=== PATIENT | female | born 1985 | race Caucasian/White ===

== ENCOUNTER → 2021-08-29 11:03 | Outpatient (CLI) | payer MEDICAID, SELFPAY ==
--- NOTE | 2021-08-29 11:05 | MRI_ITS ---
STUDY: MR Spine Lumbar WO/W Contrast 08/29/2021 7:20 PM REASON FOR EXAM: Female, 35 years old. pain, injury, previous lumbar surgery regan hip pain swelling TECHNIQUE: Standardized fat and water weighted pulse sequences were obtained in the sagittal and axial planes. COMPARISON: None FINDINGS: T12-L1: Normal endplates. Normal disc height, hydration and morphology. Normal bilateral facet joints. Normal central canal and bilateral lateral recesses. Normal bilateral intervertebral neural foramina. No abnormal areas of enhancement. Normal lumbar lordosis. There is no substantial scoliosis. Normal conus medullaris that terminates at the L1 L1-2: Normal endplates. Normal disc height and morphology. Normal central canal and intervertebral neuroforamina. There is bilateral ligamentum flavum thickening. There is bilateral facet arthropathy. L2-3: Normal endplates. Normal disc height and morphology. Normal central canal and intervertebral neuroforamina. There is bilateral ligamentum flavum thickening. There is bilateral facet arthropathy. L3-4: Normal endplates. Normal disc height and morphology. Normal central canal and intervertebral neuroforamina. There is bilateral ligamentum flavum thickening. There is bilateral facet arthropathy. L4-5: Loss of intervertebral disc height. There is endplate spondylosis of the vertebral body. There is bilateral facet arthropathy. Moderate spinal stenosis. Narrowing of the lateral recess. There is bilateral ligamentum flavum thickening. L5-S1: Loss of intervertebral disc height. There is endplate spondylosis of the vertebral body. There is bilateral facet arthropathy. Mild right neural foraminal stenosis. No compression of exiting nerve root. There is bilateral ligamentum flavum thickening. Mild canal stenosis. Narrowing of the right lateral recess. Compression of the descending right S1 nerve root. Disc desiccation. Normal visualized sacral ala. Normal visualized paraspinous soft tissue structures. MRI/Spine Lumbar W/WO Contrast IMPRESSION: Multilevel degenerative changes, as described above. Most significant at L4-5 and L5-S1. Electronically Signed: Medardo Momin MD at 19:24 EDT , Service support ,
[2021-08-29 11:50] LABS: CREATININE FINGERSTICK 0.7 mg/dL (0.55-1.02); EGFR FINGERSTICK > 60.0000 mL/min (>60)
== END ==
PROVIDERS: PCP Family Medicine; Referring Provider Orthopaedic Surgery; Visit Provider Orthopaedic Surgery
DX: M51.37 Other intervertebral disc degeneration, lumbosacral region (principal); M16.11 Unilateral primary osteoarthritis, right hip; S34.109A Unspecified injury to unspecified level of lumbar spinal cord, initial encounter; X58.XXXA Exposure to other specified factors, initial encounter; Y93.9 Activity, unspecified; Y92.9 Unspecified place or not applicable; Y99.9 Unspecified external cause status
CPT/HCPCS: 72158; A9575

== ENCOUNTER 2022-02-19 07:04 | Day surgery (SDC) | payer MEDICAID, SELFPAY ==
--- NOTE | 2022-02-16 15:13 | HP.PCM_ITS ---
History and Physical Date of Admission: 02/19/22 Chief Complaint: Follow up post right lumbar transforaminal decreased pain by 85%. History of Present Illness: This is a 36 Y/O female who was seen and evaluated at our office today as a follow up. Pain: back and hip Quality: aching, sore, cramping, sharp/stabbing Region: lower back, right hip, right knee, right leg Severity: constant but varies in intensity Timin years Aggravated by: nothing specific Relieved by: stretching, swimming, resting makes it tolerable Pain score (out of 10): 610 Other info: Follow up post injection decreased pain by 85%. Reports injection did help. States it helped with the achy and soreness in lower back and the numbness in right leg that went to toes is gone. Reports some pain in right hip and buttocks. States Dr Miller said she had severe arthritis in right hip. States she would like to discuss Voltaren Gel, she continues to do ok with her medications without side effects, she denies any bowel ro bladder problems, she stated she was seen by her surgeon and surgery is not indicated. Review of Systems: Patient denies any recent fever, chills, headache, change in weight without trying, vision or hearing problems. No cp, sob, francisco, pnd, orthopnea, or peripheral edema.They note no lumps or swollen glands, no new rashes, changing moles, or change in bowel or bladder function. No melena or BRBPR. Mood has been frustrated Past Medical History: h/o osteoarthritis h/o degenerative disc disease h/o arthritis s/p back surgery (lumbar) Family History: ======== Structured Family History ======== heart issues, breast cancer Social History: [Tobacco: Never smoker Pipe Smoker: No Cigar Smoker: No Chewing Tobacco User: No Electronic Cigarette User: No] Living situation: single Occupation: [employer] Tobacco: denies EtOH: occasional Rec. drugs: denies Allergies: adhesive tape, nickel Medications: 1) Albuterol (Eqv-ProAir HFA) 90 mcg/inh inhalation aerosol, PRN 2) gabapentin 100 mg oral capsule, 1 PO QHS for 3 days, 1 PO BID for 3 days, 1 PO TID 3) naproxen sodium 220 mg oral capsule, Take 1 tablet by mouth 2 times a Day PRN Physical Examination: Wt: 319 lb Ht/Ln: 71 in BMI: 44.5 BP: 113/89 Pulse: 62 RR: 16 Temp: 97.5F Well nourished and well developed in no acute distress. Alert and oriented to person, place and time. Affect is normal and appropriate. Mucosa pink and moist. Respirations even and unlabored. Neck is supple without significant lymphadenopathy or thyromegaly. Abdomen soft & non-tender. No HSM or masses appreciated. Extremities show no cyanosis, clubbing, or edema. Gait is Antalgic. Lumbar paraspinal muscle tenderness. Lumbar ROM is limited due to pain much improved. Bilateral lumbar facet loading is positive. SLR is negative. ROM of the right hip is limited due to pain. Motor and sensory exam is unchanged. 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 OARRS was reviewed today. UDS was reviewed, pt state she had used a THC gummy before the appt. SOAPP score is 1 MRI of the lumbar spine was reviewed with the pt today and they appear to understand. Xray of the right hip was reviewed with the pt today and they appear to understand. There are no signs of diversion or addiction with the pt, there is also no signs of abuse or misuse, continues to do well with their medications without any side effects, we will continue monitoring the pt closely. Reviewed with the pt today our opioid agreement and they appear to understand. PEG was reviewed today. Life style modifications were also discussed today and the pt appears to understand. Weight loss was recommended today through diet and exercise Risks and benefits of the above meds were discussed with the pt and they appear to understand. The common side effects of the medications were discussed and all of their questions and concerns were answered and they appear to understand Discussed natural and expected course of this diagnosis and need to alert me if symptoms do not follow expected course, or if any worse. Pt is to continue with her PT and HEP. Pt has tried multiple modalities with no success, we will schedule the pt for a right hip intra-articular steroid injection under fluoroscopy We have discussed the risks, benefits as well as alternatives of the procedure and the patient appears to understand and would like to proceed with the above plan. The above plan was discussed today with the pt in details and they appear to understand and agrees to continue with the plan.
[2022-02-19] VITALS (7 sets, daily range): BP systolic 108–150; BP diastolic 50–87; PULSE 67–73; RESP 16; TEMP 36.7–36.8; O2SAT 95–97; BMI 44.3
[2022-02-19] MEDS: Lactated Ringers 1,000 ML 15 ML IV (07:20)
[2022-02-19 07:28] LABS: Internal QC Validated? YES +Cl - CLEAR BKGD; Pregnancy, Urine Negative Negative
--- NOTE | 2022-02-19 08:11 | RAD_ITS ---
STUDY: X-RAY - PELVIS AND RIGHT HIP REASON FOR EXAM: Female, 36 years old. Intraprocedural digital documentation images of hip injection. TECHNIQUE: A single frontal sac indentation views of the pelvis and hip. COMPARISON: Pelvis and hip images dated 07/28/2021. FINDINGS: A single frontal view shows a needle with the tip projected over the right femoral neck. RAD/Fluoro Guided Needle Placement IMPRESSION: Intraprocedural digital documentation image. Electronically Signed: Deshaun Hanna MD at 11:33 EDT ,
[2022-02-19] MEDS: MethylPREDNISolone Acetate 80 MG/ML Vial (08:22)
[2022-02-19] MEDS: Bupivacaine 0.25% 30 ML Vial (08:22)
[2022-02-19] MEDS: Lidocaine 1% (5 ml sdv) 5 ML Vial (08:23)
--- NOTE | 2022-02-19 12:51 | PCM.OPRPT ---
Report of Operation Date of Procedure: 02/19/22 Description of Surgical Findings:: PREOPERATIVE DIAGNOSIS: Osteoarthritis of the right hip POSTOPERATIVE DIAGNOSIS: Osteoarthritis of the right hip PROCEDURE PERFORMED: Right hip intraarticular steroid injection under fluoroscopy guidance. ANESTHESIA: MAC. BLOOD LOSS: Minimal. COMPLICATIONS: None. DESCRIPTION OF PROCEDURE: History and physical of today was reviewed. Risks and benefits of the procedure were explained. The patient understood and agreed to proceed. Informed consent was obtained. IV inserted per routine protocol. The patient was taken to the operating room and placed in the supine position. The right hip area was prepped and draped in a sterile fashion using iodine x3. Under fluoroscopy guidance on AP view, the right hip joint was visualized. The skin and subcutaneous tissue was anesthetized with approximately 3 mL of 1% lidocaine using a 25-gauge regular needle approximately 3 cm cephalad to the right greater trochanter. Under direct visualization with fluoroscopy on an AP view, using a 22-gauge 5-inch spinal needle, the needle was advanced via the skin using the lateral approach. The tip of the needle was maneuvered and directed towards the superiormost aspect of the hip joint. Once the tip of the needle was at the vicinity of the joint, after negative aspiration for blood and positive aspiration of synovial fluid, a total of 1 mL of contrast was injected to confirm correct placement of the needle as well as halo spread around the hip joint. After repeated negative aspiration for blood and confirmation on AP as well as oblique view, a total of 10 mL of preservative-free 0.25% Marcaine with 80 mg of Depo-Medrol was injected easily. The needle was then removed intact. The patient experienced no sign or symptoms of intrathecal or intravascular injection. The patient experienced no paresthesia. The procedure was completed without any apparent difficulty or any complications. The patient appeared to tolerate it well. ASSESSMENT AND PLAN: This is a 36-year-old female with osteoarthritis of the right hip status post right hip intra-articular steroid injection under fluoroscopic guidance, patient will continue current medications, patient will follow in approximately 2 weeks for reevaluation.
== END 2022-02-19 23:59 | disposition home or self-care (01) ==
LOC: SDC 07:05 → AC 07:06
PROVIDERS: Anesthesiology; PCP Family Medicine; Referring Provider Anesthesiology Pain Medicine; Visit Provider Anesthesiology Pain Medicine
PROC: 3E0U3GC Introduction of Other Therapeutic Substance into Joints, Percutaneous Approach (ICD-10-PCS; CPT 20610; principal; 2022-02-19 08:20)
DX: M16.11 Unilateral primary osteoarthritis, right hip (principal); M96.1 Postlaminectomy syndrome, not elsewhere classified; M47.27 Other spondylosis with radiculopathy, lumbosacral region; I10 Essential (primary) hypertension; Z79.1 Long term (current) use of non-steroidal anti-inflammatories (NSAID); Z79.899 Other long term (current) drug therapy
CPT/HCPCS: 20610; 01991; 76000; 77002; 81025; J7120

== ENCOUNTER 2022-05-15 10:32 | Outpatient (RCR) | payer MEDICAID, SELFPAY | END 2022-05-17 23:59 | LOC: NS 10:32 | PROVIDERS: PCP Family Medicine; Referring Provider Orthopaedic Surgery; Visit Provider Orthopaedic Surgery | DX: Z71.3 Dietary counseling and surveillance (principal); E66.01 Morbid (severe) obesity due to excess calories; Z68.42 Body mass index [BMI] 45.0-49.9, adult | CPT/HCPCS: 97802 ==

== ENCOUNTER 2022-05-30 14:34 | Outpatient (RCR) | payer MEDICAID, SELFPAY | END 2022-06-17 23:59 | LOC: NS 14:34 | PROVIDERS: PCP Family Medicine; Referring Provider Orthopaedic Surgery; Visit Provider Orthopaedic Surgery | DX: Z71.3 Dietary counseling and surveillance (principal); E66.01 Morbid (severe) obesity due to excess calories; Z68.42 Body mass index [BMI] 45.0-49.9, adult | CPT/HCPCS: 97803 ==

== ENCOUNTER 2022-06-12 11:30 | Outpatient (RCR) | payer MEDICAID, SELFPAY ==
--- NOTE | 2022-05-08 12:58 | HP.PTEVAL ---
Patient's Visit Information MIK AGGARWAL is a 36 year old F referred to Physical Therapy by Dr. Anthony Michelle DO with a diagnosis of Right Hip Pain. Date of Evaluation: 05/08/22 Physical Therapist: Jovanna Dunham DPT - Visit Plan Frequency: 2x /Week Duration: 4 Weeks Plan: Aquatic- focus on LE and core s/s. Needs right THR- needs to lose weight. - Subjective Patient reports that she needs a right total hip replacement- they want her to do aquatic therapy. Her hip has been bothering her roughly 4 years. She is waiting to schedule the hip replacement. Worst: 06/27 Agg: anything- moving. She has missed the last 3 days of work due to pain. 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 Best: 01/25 Eases: laying down, stretching, being in water. Pain is located in the buttocks into the groin- will sometimes go down to the right knee. She has had injections- but if she is more active and working about 3-4 days she has N/T in the whole leg. Describes the normal pain as constant burning, sharp when she is stretching. The pain is also inside the joint. Is very active she has 3 little kids and a teenager so she is constantly moving- and she works nights. Last injections were in February- which was in the hip which was the last chance before she had to have a THR and it did not help. She has a herniated back since age 15 and has had surgery. She does feel the leg jace her knee gives out up/down stairs. She does use a cane sometimes and she has to sit in the shower so she does not fall. She did fall last year but none recently. She has had recent x-rays. She needs to lose weight before he wants to do the surgery. Sleep: disturbed- only gets 4.5 hours of sleep on a good day. PMHX/Meds: none since she saw ortho- in chart. - Objective Posture: FH, RS- can correct but does not maintain. Gait: antalgic- decreased stance on the right LE- poor heel/toe pattern. HR/TR: able but reports sorenss. SLS: 10 sec increase muscle activation and sway- reports instability. ROM: Lumbar: Flexion: hands to knee, Extn: neutral, SB/Rot: decreased by 50% reports pain in all directions. Hip: Flexion: 80 degrees, Ext: neutral, IR/ER: neutral, Abd: 30 degrees- pain in all directions, Knee/Ankle: WFL. Strength: Core: poor, Hip: Flexion: 2+/5 unable to SLR, or hold, All other motions: 3+/5 with pain, Knee: 4+/5, Ankle: 5/5. Flex: HS: severe, Gastroc: severe - Special Tests L/S Slump test right side: Positive L/S Right Straight Leg Raise: Positive R Hip Scour: Positive R Hip KARTHIK - Intraarticular Pathology: Positive R Hip FADDIR - Labrum: Positive R Hip Impingement Provocation - Labrum: Positive R Hip Trendelenberg - Glut Medius: Positive - Balance/Special Test Scores Lower Extremity Functional Score: 19 - Goals Goal 1:: Patient will be I with HEP and progression Goal Time Frame: 4-6 Weeks Goal 2:: Patient will ambulate >300 feet with a normalized gait pattern and LRD Goal Time Frame: 4-6 Weeks Goal 3:: Patient will report 80% improvement Goal Time Frame: 4-6 Weeks Goal 4:: Patient will maintain proper posture t/o tx session to demo increased core s/s. Goal Time Frame: 4-6 Weeks - Rehabilitation Potential Physical Therapy Diagnosis: Patient presents with hypomobility- she has decreased LE and core strength/stabilization, flex, proprioception and muscular endurance leading to abnormal gait and increased pain with ADL's. Rehabilitation Potential: Fair - Anticipated Interventions Patient/Client Instruction: Educate patient on: Benefits of Fitness Program Therapeutic Exercise to Include: Strength training, Endurance training, Balance training, Coordination, Agility training, Body mechanics, Postural training, Flexibilty training, Gait and locomotor training, Neuromotor development, In an aquatic setting, Passive ROM, Active ROM, Dynamic Lumbar Stabilization, Scapular Strength/Stabilization For the Purpose of:: To improve muscle performance and motor function Thank you for the opportunity to evaluate your patient. For Medicare and Medicare HMO plans, please review the plan of care and approve it. It will need to be FAXED BACK to us at [phone] for Medicare purposes. For Medicare only, by signing this I certify the plan of care. Please let me know if there are questions or concerns regarding this plan of care. Physician Signature: Date:
--- NOTE | 2022-06-12 12:42 | HP.PTDCSUM_ITS ---
It has been my pleasure to treat MIK AGGARWAL referred by Dr. Anthony Michelle DO, with the diagnosis of Right Hip Pain for a total of 7 visit(s). Discharge Date: Please see the following information for a summary of their discharge status. Subjective: She feels that she has 24 hours of relief. She has a pool at home- so she is working towards a HEP with modifications. she feels that she has a lot more knowledge and can relieve some of the pain. 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 Right Hip Pain Intensity (Out of 10): 4 % Improvement: 50 Objective/Function: Posture: FH, RS- can correct but does not maintain. Gait: antalgic- decreased stance on the right LE- poor heel/toe pattern. HR/TR: able but reports sorenss. SLS: 10 sec increase muscle activation and sway- reports instability. ROM: Lumbar: Flexion: hands to knee, Extn: neutral, SB/Rot: decreased by 50% reports pain in all directions. Hip: Flexion: 80 degrees, Ext: neutral, IR/ER: neutral, Abd: 30 degrees- pain in all directions, Knee/Ankle: W FL. Strength: Core: poor, Hip: Flexion: 4+/5 unable to SLR, or hold, All other motions: 4/5 with pain, Knee: 4+/5, Ankle: 5/5. Flex: HS: severe, Gastroc: severe. - Special Tests. L/S Slump test right side: Positive. L/S Right Straight Leg Raise: Positive. R Hip Scour: Positive. R Hip KARTHIK - Intraarticular Pathology: Positive. R Hip FADDIR - Labrum: Positive. R Hip Impingement Provocation - Labrum: Positive. R Hip Trendelenberg - Glut Medius: Positive Goal 1:: Patient will be I with HEP and progression Goal Progress: Goal Met Goal 2:: Patient will ambulate >300 feet with a normalized gait pattern and LRD Goal Progress: Progressing Goal 3:: Patient will report 80% improvement Goal Progress: Progressing Goal 4:: Patient will maintain proper posture t/o tx session to demo increased core s/s. Goal Progress: Progressing Plan: 06/12/22: Discharge to [facility] with. Aquatic- focus on LE and core s/s. Needs right THR- needs to lose weight. If there are questions or concerns regarding this patient's physical therapy, please feel free to call me at [phone]. Thank you for the referral of this patient. Sincerely, Jovanna Dunham, DESTINYT Balance/Gait/Functional tests - Balance/Special Test Scores Lower Extremity Functional Score: 29
== END 2022-06-12 14:27 | disposition home or self-care (01) ==
LOC: PT 11:30
PROVIDERS: PCP Family Medicine; Referring Provider Orthopaedic Surgery; Visit Provider Orthopaedic Surgery
DX: M16.11 Unilateral primary osteoarthritis, right hip (principal)
CPT/HCPCS: 97113; 97161; 97164

== ENCOUNTER 2022-06-26 14:56 | Outpatient (RCR) | payer MEDICAID, SELFPAY | END 2022-07-18 23:59 | LOC: NS 14:56 | PROVIDERS: PCP Family Medicine; Referring Provider Orthopaedic Surgery; Visit Provider Orthopaedic Surgery | DX: Z71.3 Dietary counseling and surveillance (principal); E66.01 Morbid (severe) obesity due to excess calories; Z68.42 Body mass index [BMI] 45.0-49.9, adult | CPT/HCPCS: 97803 ==

== ENCOUNTER 2023-11-13 18:37 | Emergency (ER) | payer MEDICAID, SELFPAY ==
[2023-11-13 18:38] VITALS: BP 192/79; PULSE 83; RESP 26; TEMP 37.7; O2SAT 96
[2023-11-13 19:18] VITALS: BMI 49.1
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
[2023-11-13] MEDS: 0.9% Normal Saline (1000mL) 1,000 ML 1000 ML IV (20:25)
[2023-11-13 20:26] VITALS: BP 156/66; PULSE 64; RESP 22; O2SAT 92
[2023-11-13 20:30] LABS: Absolute Lymphocyte Count 1.99 X10^3/uL (0.83-4.51); Absolute Neutrophil Count 5.9 X10^3/uL (2.0-7.7); Basophil# 0.03 X10^3/uL; Basophil% 0.3 % (0-1); Eosinophil# 0.28 X10^3/uL; Eosinophils% 3.2 % (0-5); Lymphocyte # 1.99 X10^3/ul (0.83-4.51); Mean Corpuscular Hgb 26.8 pg (27.0-32.0); Mean Corpuscular Volume 86.6 fL (81-99); Mean Platelet Vol. 9.4 fl (6.2-12.0); Monocyte# 0.41 X10^3/uL; Monocyte% 4.7 % (0-10); NRBC Flagged by Analyzer 0 % (0-5); Neutrophil % 68.1 % (47-70); Platelet Count 231 K/mm3 (150-450); RBC Distribution Width SD 47.4 fl (35.1-43.9); Red Blood Count 4.85 M/mm3 (4.2-5.4); White Blood Count 8.7 K/mm3 (4.4-11.0)
[2023-11-13 20:39] LABS: Internal QC Validated? YES +Cl - CLEAR BKGD; Pregnancy, Serum, hCG Quali. NEGATIVE Negative
[2023-11-13 20:43] LABS: D-Dimer Quantitative (DVT/PE) 0.43 FEU/ug/m (0.27-0.49)
[2023-11-13 20:52] LABS: ALB/GLOB Ratio 0.9 RATIO (0.9-2.4); AST(SGOT) 37 U/L (15-37); Alanine Aminotransfer ALT/SGPT 34 U/L (13-56); Albumin, Serum 3.4 g/dL (3.2-5.0); Alkaline Phosphatase 82 U/L (45-117); Anion Gap 4 (5-15); BUN 11 mg/dL (7-18); BUN/Creat Ratio 14.7 RATIO (10-20); Chloride 100 mmol/L (98-107); Creatinine, Serum 0.75 mg/dL (0.55-1.02); EST Glomerular Filtration Rate 92 mL/min (>60); Est Glom Filt Rate - Afr Amer 111 mL/min (>60); Estimated Creatinine Clearance 112.56 ml/min; Globulin 3.9 g/dL (2.2-4.2); Glucose 115 mg/dL (74-106); Potassium 3.9 mmol/L (3.5-5.1); Protein, Total 7.3 g/dL (6.4-8.2); Sodium Level 138 mmol/L (136-145); Troponin-I HS 54 pg/mL (3.0-54.0)
[2023-11-13 21:19] VITALS: BP 158/76; PULSE 68; RESP 19; O2SAT 93
--- NOTE | 2023-11-13 21:50 | RAD_ITS ---
STUDY: X-RAY CHEST REASON FOR EXAM: Female, 38 years old. cough fever TECHNIQUE: PA and lateral views of the chest. COMPARISON: None. FINDINGS: The lungs are clear and expanded. There is no demonstrated pleural abnormality. Normal size heart. Normal mediastinum and jameson. Normal visualized pulmonary arteries. Normal visualized aortic arch and descending thoracic aorta. Normal visualized thoracic spine. Normal visualized ribs, clavicles, and shoulders. There is no demonstrated abnormality of the visualized soft tissue structures of the upper abdomen. RAD/Chest PA and Lateral IMPRESSION: Normal x-ray examination of the chest. Electronically Signed: Syd Aguirre MD at 22:59 EST ,
--- NOTE | 2023-11-13 21:50 | RAD_ITS ---
STUDY: X-RAY - SOFT TISSUE NECK REASON FOR EXAM: Female, 38 years old. pain, dysphagia TECHNIQUE: 2 view(s) of the neck were obtained. COMPARISON: None. FINDINGS: Normal visualized nasopharynx, oropharynx, hypopharynx. Normal epiglottis. Normal visualized subglottic tracheal air column. Normal prevertebral soft tissue structures. Normal visualized osseous structures. The soft tissue structures are unremarkable. RAD/Neck for Soft Tissue IMPRESSION: Normal x-ray soft tissue neck. Electronically Signed: Syd Aguirre MD at 23:00 EST ,
[2023-11-13 22:22] VITALS: BP 149/73; PULSE 68; RESP 16; O2SAT 94
[2023-11-13 23:19] VITALS: BP 140/71; PULSE 67; RESP 13; TEMP 37.1; O2SAT 95
== END 2023-11-13 23:23 | disposition home or self-care (01) ==
PROVIDERS: Emergency Provider Emergency Medicine; PCP Family Medicine; Visit Provider Emergency Medicine
DX: R55 Syncope and collapse (principal); E11.65 Type 2 diabetes mellitus with hyperglycemia; J20.8 Acute bronchitis due to other specified organisms; Z11.52 Encounter for screening for COVID-19; I10 Essential (primary) hypertension; R49.0 Dysphonia; Z87.891 Personal history of nicotine dependence
CPT/HCPCS: 70360; 71046; 80053; 84484; 84703; 85025; 85379; 87428; 93005; 96360; 99284; J7030; A4216

== ENCOUNTER → 2023-11-13 | Outpatient (CLI) | payer MEDICAID, SELFPAY ==
--- OUTSIDE RECORDS SUMMARY | 2023-11-13 23:20 | XMS RPT_ITS | CCD ---
Author Name Unknown Address [address] [place] [address] Organization [facility] Care Team Providers Care Automotive Design Layout Drafter Name Role Phone JT LEI Unavailable Unavailable JT LEI Unavailable Unavailable PHYSICIAN, NONE Unavailable Unavailable JT LEI Unavailable Unavailable JT LEI Unavailable Unavailable PHYSICIAN, NONE Unavailable Unavailable NONA ELIAS DO Primary Care Physician [phone] Nona Elias DO Primary Care Provider NONA ELIAS Primary Care Unavailable BRYANNA, TRACIE Referring Unavailable NONA ELIAS Primary Care Unavailable TRACIE GOULD Referring Unavailable Nona Elias DO Primary Care Provider [phone] Parrish Dunn MD Unavailable Nona Elias DO Primary Care Provider TRACIE GOULD Attending Unavailable BRYANNA, TRACIE Referring Unavailable NONA ELIAS Primary Care Unavailable TRACIE GOULD Attending Unavailable BRYANNA, TRACIE Referring Unavailable NONA ELIAS Primary Care Unavailable TRACIE GOULD Attending Unavailable ANTHONY LACKEY JR Referring Unavailable NONA ELIAS Primary Care Unavailable SHARON MERRILL Attending Unavailable NONA ELIAS Primary Care Unavailable AIMEE MENDOZA Attending Unavailable AIMEE MENDOZA Referring Unavailable NONA ELIAS Primary Care Unavailable PARRISH DUNN Attending Unavailable NONA ELIAS Primary Care Unavailable LONA CHAMBERS Attending Unavailable NONA ELIAS Primary Care Unavailable AIMEE MENDOZA Attending Unavailable NONA ELIAS Primary Care Unavailable LOI LU Attending Unavailable JADA, NONA Primary Care Unavailable LOI LU Attending Unavailable LONA CHAMBERS Referring Unavailable JADA, NONA Primary Care Unavailable SHARON MERRILL Attending Unavailable JADA, NONA Primary Care Unavailable AIMEE MENDOZA Attending Unavailable JADA, NONA Primary Care Unavailable MCALONA SANTOYO Attending Unavailable PATRICIAWLONA Referring Unavailable JADA, NONA Primary Care Unavailable KATERINE MERRILLA Attending Unavailable JADA, NONA Primary Care Unavailable GARFIELDSHARON Attending Unavailable JADA, NONA Primary Care Unavailable LOI LU Attending Unavailable JADA, NONA Primary Care Unavailable GARFIELDSHARON Attending Unavailable JADA, NONA Primary Care Unavailable PARRISH DUNN Attending Unavailable JADA, NONA Primary Care Unavailable GARFIELDSHARON Attending Unavailable JADA, NONA Primary Care Unavailable JADA DO, NONA M Attending Unavailable JADA DO, NONA M Primary Care Unavailable NAKITA CARRILLO Attending Giles CAMERONY DO, NONA M Primary Care Unavailable JADA DO, NONA M Primary Care Unavailable GRISELDA RICHTER DO Attending Unavailable JADA DO, NONA M Primary Care Unavailable ODALIS BOSTON MD Admitting Unavailable ODALIS BOSTON MD Attending Unavailable JADA DO, NONA M Primary Care Unavailable SANJUANA SAN-ZELDA, NAKITA Elizabeth Attending Giles LEI APRN-ARMANDO, JT Elizabeth Attending Chrissie vailable JADA DO, NONA M Primary Care Unavailable DO SAN-ARMANDO, JT Elizabeth Attending Chrissie vailable JADA DO, NONA M Primary Care Unavailable Allergies Allergy Classification Reported Allergen(s) Allergy Type Date of Onset Reaction(s) Facility (20 sources) nickel Drug Allergy 03-26-2023 [facility] (5 sources) Tape 1 Allergy to substance [facility] Medications Current Medications Medication Drug Class(es) Dates Sig (Normalized) Sig (Original) [id number] 200 actuat albuterol 0.09 mg/actuat metered dose inhaler (20 sources) beta2-Adrenergic Agonist Start: 03-27-2022 take 2 puff(s) by inhalation every six hours as needed ProAir HFA 108 (90 Base) MCG/ACT inhaler Inhale 2 puffs every 6 hours as needed. 0 03/27/2022 Active Completed/Discontinued Medications Medication Drug Class(es) Dates Sig (Normalized) Sig (Original) Back Brace (BACK SUPPORT L/XL) Misc Misc (3 sources) Start: 05-14-2007 Back Brace (BACK SUPPORT L/XL) Misc Misc warm and form lumbar sacral corsett 1 0 05/14/2007 Active Problems Active Problems Problem Classification Problem Date Documented Date Episodic/Chronic Administrative/social admission (4 sources) Patient encounter status; Translations: [Encounter for blood-alcohol and blood-drug test] 09-24-2023 Episodic Asthma (2 sources) Allergic asthma 04-02-2023 Chronic Deficiency and other anemia (1 source) Anemia 09-27-2023 Episodic Diabetes mellitus without complication (1 source) Type 2 diabetes mellitus 10-15-2023 Chronic Diabetes mellitus without complication (1 source) Hyperglycemia 09-27-2023 Episodic Fever of unknown origin (2 sources) Fever 01-10-2023 Episodic Hypertension complicating ; childbirth and the puerperium (5 sources) Pre-eclampsia 09-03-2017 Episodic Malaise and fatigue (2 sources) Malaise and fatigue; Translations: [Other malaise] Episodic Menstrual disorders (1 source) Secondary amenorrhea 09-27-2023 Chronic Mycoses (5 sources) Onychomycosis 08-09-2020 Episodic Noninfectious gastroenteritis (2 sources) Acute gastroenteritis 12-21-2022 Episodic Osteoarthritis (2 sources) Degenerative joint disease involving multiple joints; Translations: [Polyosteoarthritis, unspecified] Chronic Other and unspecified benign neoplasm (4 sources) Lipoma (clinical) 12-27-2021 Episodic Other connective tissue disease (5 sources) Abscess of bursa of shoulder 10-24-2021 Episodic Other nervous system disorders (4 sources) Numbness of lower limb 01-18-2022 Episodic Other non-traumatic joint disorders (20 sources) Hip pain; Translations: [Pain in right hip] 08-09-2020 Episodic Other non-traumatic joint disorders (3 sources) Multiple joint pain; Translations: [Pain in unspecified joint] Episodic Other non-traumatic joint disorders (1 source) Joint pain Onset: 06-14-2023 Episodic Other nutritional; endocrine; and metabolic disorders (5 sources) Body mass index 30+ - obesity 09-04-2017 Chronic Other nutritional; endocrine; and metabolic disorders (20 sources) Body mass index 40+ - severely obese; Translations: [Morbid (severe) obesity due to excess calories] 03-26-2023 Chronic Other nutritional; endocrine; and metabolic disorders (20 sources) Morbid obesity; Translations: [Morbid (severe) obesity due to excess calories] Onset: 02-08-2023 02-08-2023 Chronic Other nutritional; endocrine; and metabolic disorders (14 sources) Severe obesity; Translations: [Morbid (severe) obesity due to excess calories] 05-17-2023 Chronic Other nutritional; endocrine; and metabolic disorders (2 sources) Obesity caused by energy imbalance; Translations: [Morbid (severe) obesity due to excess calories] Onset: 06-05-2023 06-05-2023 Chronic Other nutritional; endocrine; and metabolic disorders (2 sources) Body mass index (BMI) 50.0-59.9, adult; Translations: [Body mass index (BMI) 50.0-59.9, adult (HCC)] Onset: 08-09-2023 Chronic Other nutritional; endocrine; and metabolic disorders (2 sources) Body mass index (BMI) 45.0-49.9, adult; Translations: [Body mass index (BMI) 45.0-49.9, adult (HCC)] Onset: 06-05-2023 Chronic Other nutritional; endocrine; and metabolic disorders (1 source) Morbid (severe) obesity due to excess calories; Translations: [Morbid (severe) obesity due to excess calories (HCC)] Onset: 06-05-2023 Chronic Other nutritional; endocrine; and metabolic disorders (2 sources) Weight loss; Translations: [Weight Loss] Onset: 09-06-2023 Episodic Other screening for suspected conditions (not mental disorders or infectious disease) (5 sources) Viral screening status; Translations: [Decreased vitamin D] 06-22-2022 Episodic Other upper respiratory disease (2 sources) Seasonal allergy 04-02-2023 Chronic Other upper respiratory infections (5 sources) Sore throat symptom; Translations: [Streptococcal sore throat] 01-10-2023 Episodic Residual codes; unclassified (3 sources) Obstructive sleep apnea syndrome; Translations: [Obstructive sleep apnea (adult) (pediatric)] 08-05-2023 Chronic Residual codes; unclassified (1 source) Hypoxia; Translations: [Idiopathic sleep related nonobstructive alveolar hypoventilation] 10-28-2023 Chronic Residual codes; unclassified (2 sources) Idiopathic sleep related nonobstructive alveolar hypoventilation; Translations: [Idiopathic sleep related nonobstructive alveolar hypoventilation] Onset: 10-28-2023 Chronic Residual codes; unclassified (2 sources) Obstructive sleep apnea (adult) (pediatric); Translations: [Obstructive sleep apnea (adult) (pediatric)] Onset: 10-19-2023 Chronic Spondylosis; intervertebral disc disorders; other back problems (8 sources) Lumbosacral spondylosis with radiculopathy; Translations: [Intervertebral disc disorder] Onset: 05-28-2007 10-24-2021 Chronic Syncope (1 source) Syncope 09-27-2023 Episodic Unclassified (1 source) Unknown / UNK(Unknown) Onset: 05-16-2017 Unclassified (5 sources) Breast feeding (infant) (observable entity) 09-04-2017 Past or Other Problems Problem Classification Problem Date Documented Da te Episodic/Chronic Coma; stupor; and brain damage (20 sources) Daytime somnolence; Translations: [Somnolence] Onset: 03-26-2023 03-26-2023 Episodic Genitourinary symptoms and ill-defined conditions (4 sources) Dysuria; Translations: [Proteinuria, unspecified] Onset: 06-28-2023 Episodic Other non-traumatic joint disorders (2 sources) Pain in unspecified joint; Translations: [Pain in joint, multiple sites] Onset: 01-16-2023 Episodic Other non-traumatic joint disorders (2 sources) Pain in right hip; Translations: [Pain in right hip] Onset: 06-05-2023 Episodic Other non-traumatic joint disorders (2 sources) Pain in left hip; Translations: [Pain in left hip] Onset: 06-05-2023 Episodic Spondylosis; intervertebral disc disorders; other back problems (20 sources) Low back pain; Translations: [Lumbago] Onset: 05-14-2007 08-09-2020 Episodic Unclassified (1 source) DATING, ANATOMY Onset: 05-16-2017 Results Test Name Value Interpretation Reference Range Facil ity Vital Signs Date Time Vital Sign Value Performing Clinician Faci lity 10-27-2023 18:28-0500 SaO2% (BldA) [Mass fraction] 69 % GRISELDA MARRUFOT DO AO Blood Gas SS 10-27-2023 16:44-0500 Blood Pressure Cuff Size GRISELDA MARRUFOT DO [facility] 10-27-2023 16:44-0500 Blood Pressure Location GRISELDA RICHTER DO [facility] 10-27-2023 16:44-0500 Blood Pressure Method GRISELDA RICHTER D O [facility] 10-27-2023 16:44-0500 Body temperature 98.96 [degF] GRISELDA RICHTER [facility] 10-27-2023 16:44-0500 Diastolic Blood Pressure Non-Invasive 85 mm[Hg] GRISELDA RICHTER DO [facility] 10-27-2023 16:44-0500 Heart rate 85 /min GRISELDA RICHTER [facility] [facility] 10-27-2023 16:44-0500 Respiratory rate 18 /min GRISELDA RICHTER [facility] 10-27-2023 16:44-0500 Systolic Blood Pressure Non-Invasive 163 mm[Hg] GRISELDA RICHTER DO [facility] 10-02-2023 10:55-0500 Body height 179.1 cm Sharon Merrill MD Work Phone: [employer] 10-02-2023 10:55-0500 Body mass index (BMI) [Ratio] 51.63 kg/m2 Sharon Merrill MD Work Phone: [employer] 10-02-2023 10:55-0500 Body weight 165.56 kg Sharon Merrill MD Work Phone: [facility] [employer] 10-02-2023 10:55-0500 Diastolic blood pressure 82 mm[Hg] Sharon Merrill MD Work Phone: [facility] 10-02-2023 10:55-0500 Heart rate 83 /min Sharon Merrill MD Work Phone: [facility] 10-02-2023 10:55-0500 Systolic blood pressure 149 mm[Hg] Sharon Merrill MD Work Phone: [facility] [employer] 09-06-2023 08:05-0400 Body height 179.1 cm Sharon Merrill MD Work Phone: [facility] 09-06-2023 08:05-0400 Body mass index (BMI) [Ratio] 50.92 kg/m2 Sharon Merrill MD Work Phone: [facility] [employer] 09-06-2023 08:05-0400 Body weight 163.29 kg Sharon Merrill MD Work Phone: [facility] [employer] 09-06-2023 08:05-0400 Diastolic blood pressure 86 mm[Hg] Sharon Merrill MD Work Phone: [facility] 09-06-2023 08:05-0400 Heart rate 101 /min Sharon Merrill MD Work Phone: [facility] [employer] 09-06-2023 08:05-0400 Systolic blood pressure 135 mm[Hg] Sharon Merrill MD Work Phone: [facility] [employer] 08-09-2023 13:32-0400 Body height 179.1 cm Sharon Merrill MD Work Phone: [facility] [employer] 08-09-2023 13:32-0400 Body mass index (BMI) [Ratio] 50.61 kg/m2 Sharon Merrill MD Work Phone: [facility] [employer] 08-09-2023 13:32-0400 Body weight 162.3 kg Sharon Merrill MD Work Phone: [facility] [employer] 08-09-2023 13:32-0400 Diastolic blood pressure 85 mm[Hg] Sharon Merrill MD Work Phone: [facility] [employer] 08-09-2023 13:32-0400 Heart rate 76 /min Sharon Merrill MD Work Phone: [facility] [employer] 08-09-2023 13:32-0400 Systolic blood pressure 139 mm[Hg] Sharon Merrill MD Work Phone: [facility] [employer] 08-05-2023 11:11-0400 Body height 179.1 cm Aimee Serb REGIONAL PROGRAM MANAGER - MECHANICAL CAR CHECKER Work Phone: [facility] [employer] 08-05-2023 11:11-0400 Body mass index (BMI) [Ratio] 50.34 kg/m2 Aimee Serb REGIONAL PROGRAM MANAGER - MECHANICAL CAR CHECKER Work Phone: [facility] [employer] 08-05-2023 11:11-0400 Body weight 161.48 kg Aimee Serb REGIONAL PROGRAM MANAGER - MECHANICAL CAR CHECKER Work Phone: [facility] [employer] 08-05-2023 11:11-0400 Diastolic blood pressure 84 mm[Hg] Aimee Jeffriesb REGIONAL PROGRAM MANAGER - MECHANICAL CAR CHECKER Work Phone: [facility] [employer] 08-05-2023 11:11-0400 Heart rate 78 /min Aimee Serb REGIONAL PROGRAM MANAGER - MECHANICAL CAR CHECKER Work Phone: [facility] [employer] 08-05-2023 11:11-0400 Respiratory rate 14 /min Aimee Serb REGIONAL PROGRAM MANAGER - MECHANICAL CAR CHECKER Work Phone: [facility] [employer] 08-05-2023 11:11-0400 SaO2% (BldA) [Mass fraction] 96 % Aimee Serb REGIONAL PROGRAM MANAGER - MECHANICAL CAR CHECKER Work Phone: [facility] [employer] Encounters Encounter Date Encounter Type Care Provider Facility Start: 10-28-2023 Telephone encounter Aimee trotter REGIONAL PROGRAM MANAGER - MECHANICAL CAR CHECKER Work Phone: [facility] [employer] [facility] Start: 10-28-2023 End: 10-28-2023 ambulatory AIMEE MENDOZA [facility] Start: 10-28-2023 End: 10-28-2023 Encounter for preprocedural respiratory examination AIMEE MENDOZA [facility] Start: 10-28-2023 End: 10-28-2023 Office outpatient visit 10 minutes Aimee Mendoza REGIONAL PROGRAM MANAGER - MECHANICAL CAR CHECKER Work Phone: [facility] Procedures Date Procedure Procedure Detail Performing Clinician Start: 08-09-2023 Adult depression scr eening assessment Lona Chambers SALES ORDER ADMINISTRATOR Work Phone: Start: 06-26-2023 Radiologic exam upr gi trc single contrast study Lona Michaeljosemanuel SALES ORDER ADMINISTRATOR Work Phone: Start: 06-05-2023 Comprehensive metabo lic panel Lona Chambers SALES ORDER ADMINISTRATOR Work Phone: Start: 06-05-2023 Lipid panel Lonaguera santoyo SALES ORDER ADMINISTRATOR Work Phone: Start: 06-05-2023 Lipid 1996 panel - S skyler or Plasma Barbie Campo RD Work Phone: Start: 09-04-2017 delivery only NONA JADA DO Start: 07-13-2016 delivery only NONA ELIAS DO Arthroplasty of knee NONA JADA DO Plan of Treatment Date Care Activity Detail Author Start: 2044 RSV Immunization aged 60 or older (1 - 1-dose 60+ series) RSV Immunization aged 60 or older (1 - 1-dose 60+ series) [facility] Start: 2034 Zoster Vaccines (1 of 2) Zoster Vaccines (1 of 2) [facility] Start: 06-05-2028 Lipid panel Lipid Panel [facility] Start: 09-05-2027 DTaP/Tdap/Td Vaccines (2 - Td or Tdap) DTaP/Tdap/Td Vaccines (2 - Td or Tdap) [facility] Start: 08-09-2024 Depression Screening Depression Screening [facility] Start: 06-05-2024 Hemoglobin A1c measurement Diabetes: Hemoglobin A1C [facility] Start: 06-05-2024 Lipid panel Lipid Panel [facility] Start: 12-04-2023 End: 12-04-2023 Patient encounter procedure 12/04/2023 10:20 AM EST [facility] [address] [place] [address] Anthony Robertson DO [address] [address] [employer] [facility] Start: 10-28-2023 End: 10-28-2024 Sleep study with pap titration Sleep study with pap titration Sleep Center Routine BANDAR (obstructive sleep apnea) Expected: 10/28/2023 (Approximate), Expires: 10/28/2024 [employer] Work Phone: Immunizations Immunization Date Immunization Notes Care Provider Fa cility 09-05-2017 tetanus toxoid, redu babar diphtheria toxoid, and acellular pertussis vaccine, adsorbed NONA ELIAS DO [facility] 07-30-2017 influenza virus vaccine, unspecified formulation NONA ELIAS DO [facility] Payers Date Payer Category Payer Medicaid [id number] 2016 Unknown [id number] 1984 Unknown [id number] [id number] 1984 Unknown [id number] [id number] [id number] 1984 Unknown [id number] [id number] [id number] 1984 Unknown [id number] [id number] [id number] 1984 Unknown [id number] [id number] [id number] 1984 Unknown [id number] [id number] [id number] 1984 Unknown [id number] [id number] Social History Date Type Detail Facility Start: 03-23-2020 End: 08-05-2023 Ex-smoker (finding) [facility] Start: 1985 Sex Assigned At Female [facility] Start: 02-09-2012 [facility] Start: 11-18-1995 End: 11-18-2011 History of tobacco use Cigarette Smoker [facility] Start: 02-09-2012 End: 08-09-2023 Cigarettes smoked current (pack per day) - Reported 0.5 [facility] Start: 02-09-2012 Alcohol intake Current non-dr adaptive physical educator of alcohol (finding) [facility] Start: 11-18-1995 End: 11-18-2011 History of tobacco use Current smoker [facility] Start: 03-26-2023 End: 08-05-2023 Tobacco use and exposure Smokeless tobacco non-user [facility] Start: 03-26-2023 End: 08-09-2023 Tobacco use panel [facility] Start: 1985 Sex Assigned At Not on file [facility] Start: 03-16-2023 End: 08-09-2023 Exposure to SARS-CoV-2 (event) Not sure [facility] National Score (1-10 0), lower number is lower risk 58 [facility] Start: 12-14-2022 Gender identity Identifies as female gender (finding) [facility] Start: 12-14-2022 Sexual orientation Heterosexual (estelita hunt) [facility] Medical Equipment Procedure Code Equipment Code Equipment Origin al Text Equipment Identifier Dates See Instructions , Patient to test twice a day. Please give 90-day supply with 3 refills. Please give formulary preferred to match glucometer. Dx: New onset type 2 diabetes., # 200 EA, 3 Refill(s), Pharmacy: [id number], New onset type 2 diabetes mellitus, 180.5, cm, 09/27/23 14:49:00 EST, Height, 163.8, kg, 09/27/23 14:49:00 EST, Dosing Weight Start: 10-01-2023 See Instructions , Patient to test twice a day. Please give 90-day supply with 3 refills. Please give formulary preferred. Dx: New onset type 2 diabetes., # 200 EA, 3 Refill(s), Pharmacy: [id number], New onset type 2 diabetes mellitus, 180.5, cm, 09/27/23 14:49:00 EST, Height, 163.8, kg, 09/27/23 14:49:00 EST, Dosing Weight Start: 10-01-2023 Functional Status Date Assessment Result Facility 10-27-2023 Functional Status Independent [facility] Mental Status Date Assessment Result Facility 10-27-2023 Mental Status Orientation Oriented x 4 [facility] Clinical Notes 02-27-2023 to 10-29-2023 Telephone Encounter - Le Vásquez Rai, MA - 10/29/2023 3:10 PM ESTTelephone Encounter - Le Vásquez Rai, MA - 10/29/2023 3:10 PM ESTTelephone Encounter - Le Vásquez Rai, MA - 10/29/2023 2:54 PM ESTRadiology Note Date & Type Note Facility 10-29-2023 Telephone encounter Note Images from the original note were not included. [facility] sent us back pt order stating that they do not supply oxygen. Called pt and notified.She would like her order sent to [facility] in [place], [place] first and If [facility] didn't take pt insurance then she would like her order sent to [facility] in [place], [place]. Order sent to [facility]. [facility] 10-29-2023 Miscellaneous Notes Images from the original note were not included. [facility] sent us back pt order stating that they do not supply oxygen. Called pt and notified.She would like her order sent to [facility] in [place], [place] first and If [facility] didn't take pt insurance then she would like her order sent to [facility] in [place], [place]. Order sent to [facility]. Order sent to [facility]. There is no [employer] company in [place], [place] so called pt to confirm about DME and she said she want her oxygen order sent to [facility] located at [place], [place]. Order placed in provider folder for sign. ----- Message from JASWINDER Morel CNP sent at 10/28/2023 11:26 AM EST ----- Added patient to my schedule. Patient needs checked in and out. Please place orders in my folder for 2L nocturnal O2. Patient requesting ?SUSHILA RODRIGUEZ near here for this. Thank you! documented in this encounter [facility] [employer] 10-29-2023 Telephone encounter Note Order sent to [facility]. [facility] [employer] 10-28-2023 Telephone encounter Note There is no [employer] company in [place], [place] so called pt to confirm about DME and she said she want her oxygen order sent to [employer] located at [place], [place]. Order placed in provider folder for sign. [facility] [employer] 10-28-2023 Telephone encounter Note ----- Message from JASWINDER Morel CNP sent at 10/28/2023 11:26 AM EST ----- Added patient to my schedule. Patient needs checked in and out. Please place orders in my folder for 2L nocturnal O2. Patient requesting ?SUSHILA RODRIGUEZ near here for this. Thank you! [employer] 10-28-2023 History of Present illness Narrative Visit type: Established Reason for Visit: Follow-up (After PSG) History of Present Illness: Mik Sandra is a 38 y.o. female patient being seen via telephone visit today to review PSG results. 08/05/23: OV-- Mik Sandra is a 37 y.o. female patient being seen for evaluation for bariatric surgery clearance. Significant PMHx of back/joint pain and morbid obesity. Following with Bariatrics, Dr. Dunn, with plans for future Laparoscopic Sleeve Gastrectomy. Today the patient reports to the office in no acute distress. +exertional dyspnea which she contributes to weight and joint pain. Denies other respiratory symptoms. Says that she has a Proair inhaler that she was prescribed by her PCP previously for PNA, but does not need to use. No other history of Pulmonary disease. Pulmonary testing or visit with a Watch Crystal Molder. Denies history of BANDAR. No sleep study in the past, but was told during her pregnancies that she should have one done. +snoring. +gasping/coughing waking her up at night occasionally. +hypersomnolence and not feeling well rested in the AM. Also has 5 and 7 year old children- one of which has insomnia and disrupts her sleep. Allergic to nickel and clear taper (has to use paper tape). No respiratory issues with general anesthesia in the past. 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 Previously smoked 4 cigarettes daily a couple times a week for about 10 years socially- quit 2013. STOP BANG Score= 4 10/19/23: PSG-- severe BANDAR (AHI 108.1) with significant nocturnal desaturations (lowest 43%); titration attempted but unsuccessful; recommend in-lab titration study and 2L O2 nocturnally in the meantime Past Medical History: Past Medical History: Diagnosis Date Back pain Daytime sleepiness Diabetes mellitus (HCC) Difficulty sleeping Fatigue Irregular menses Joint pain, hip Joint pain, knee Morbid obesity (HCC) Muscle weakness Snoring SOBOE (shortness of breath on exertion) Social History: Social History Socioeconomic History Marital status: Single Tobacco Use Smoking status: Former Packs/day: .25 Types: Cigarettes Start date: 1995 Quit date: 2011 Years since quittin.9 Smokeless tobacco: Never Substance and Sexual Activity Drug use: Not Currently Sexual activity: Not Currently Family History: Family History Problem Relation Name Age of Onset Heart disease Mother Heart disease Father Heart disease Paternal Grandmother Obesity Paternal Grandmother Heart disease Maternal Grandmother Obesity Maternal Grandmother ROS: Review of Systems Constitutional: Positive for fatigue. Negative for activity change, appetite change, chills and fever. HENT: Negative for congestion, postnasal drip and rhinorrhea. Respiratory: Positive for apnea and shortness of breath. Negative for cough, chest tightness and wheezing. SOB with activity Cardiovascular: Negative for chest pain, palpitations and leg swelling. Psychiatric/Behavioral: Positive for sleep disturbance. Allergies: Allergies Allergen Reactions Nickel Hives Other Tape Vital Signs: There were no vitals taken for this visit. Physical Exam: Physical Exam Constitutional: General: She is not in acute distress. Pulmonary: Comments: No audible cough, wheezing or conversational dyspnea. On room air. Neurological: Mental Status: She is alert and oriented to person, place, and time. Psychiatric: Behavior: Behavior normal. Thought Content: Thought content normal. Judgment: Judgment normal. Assessment and Plan: Diagnosis Plan 1. BANDAR (obstructive sleep apnea) Severe (AHI 108.1) with significant nocturnal hypoxia per below. --Recommend in-lab titration study. Sleep study with pap titration 2. Nocturnal hypoxia Likely in setting of severe BANDAR. --Recommend 2L nocturnal O2 while awaiting titration study and PAP orders. --Consider repeating nocturnal oximetry once on PAP therapy. DME Order for home oxygen- 2L nocturnally: patient preference [facility] 3. Encounter for pre-operative respiratory clearance Clearance pending titration study and appropriate PAP therapy treatment thereafter. 4. Morbid obesity with BMI of 50.0-59.9, adult ([facility]) Lifestyle modifications- diet and exercise. Continues to follow with Bariatrics in pursuit of future weight loss surgery. Follow-up: Follow up with me via telephone after titration study, or if symptoms worsen or fail to improve. Patient was identified and seen today via Telehealth by agreement and consent. I used the following Telehealth technology: Audio capability only. Total length of call 10 minutes. The patient was offered and advised video for a more comprehensive evaluation, but the patient declined or was unable to use video. Patient location: Patient Location: Home. This patient encounter is appropriate and reasonable under the circumstances: transportation issues . The patient has been advised of the potential risks and limitations of this mode of treatment (including but not limited to the absence of in-person examination) and has agreed to be treated in a remote fashion in spite of them. Any and all of the patient's/patient's family's questions on this issue have been answered and I have made no promises or guarantees to the patient. The patient has also been advised to contact this office for worsening conditions or problems, and seek emergency medical treatment and/or call 911 if the patient deems either necessary. The patient stated that they are currently in the [facility]. If the patient is a minor, permission has been obtained by the parent or guardian for the patient to receive medical care at this visit. documented in this encounter [facility] 10-28-2023 Telephone encounter Note See telephone visit from today. [facility] 10-28-2023 Miscellaneous Notes See telephone visit from today. Mik returned call - please return call to Mik. Call placed to patient to review recent sleep study results. Voicemail left. Images from the original note were not included. Pt completed her SS test and results in media. Please review the results and thank you. documented in this encounter [facility] [employer] 10-27-2023 Hospital Discharge instructions Patient Education 10/27/2023 19:04:30 Diabetes with High Blood Sugar Diabetes with High Blood Sugar You have been treated for high blood sugar (hyperglycemia). This may be because of an infection or other illness. Or it may be from eating too many sweets or starches. Or it may be from not taking enough insulin or other diabetes medicine. Home care Check your blood sugar level at least 2 times a day. Write it down the results. Do this before breakfast and before dinner. If you take insulin, also write down your routine insulin dose. Note any other doses you needed based on your sliding scale or as advised by your healthcare provider. Do this for the next 3 to 5 days. High blood sugar may cause symptoms that you can learn to spot. These include: Peeing often Thirst Headache Breath that smells fruity Nausea or vomiting Belly pain If you have symptoms of high blood sugar, use a blood or urine test to find out what your blood sugar level is. If it is above your usual range, use the sliding scale regular insulin dose from your healthcare provider. Call your provider for advice if you were not given a range for your insulin dose. If your blood sugar is over 240 mg/dL, check your urine for ketones. Follow-up care Follow up with your healthcare provider, or as advised. You may need to meet with your provider in the next week. You will likely look at your blood sugar records together. You may need to change your dose of insulin or other diabetes medicine. When to seek medical advice Call your healthcare provider right away if these occur: Symptoms of high blood sugar that don't get better with the treatment your provider advised. This is especially true if you also have ketones in your urine. Blood sugar over 300 mg/dl. If you can t reach your healthcare provider, go to a hospital emergency room or urgent care center. Call 911 Call 911 if you have any of the following: Confusion Dizziness, lightheadedness, or loss of consciousness Shortness of breath Chest pain Weakness of an arm, leg, or one side of the face Sudden trouble with speech or vision [phone] [employer]. [address] [place] [address], [place] [address]. All rights reserved. This information is not intended as a substitute for professional medical care. Always follow your healthcare professional's instructions. Follow Up Care 10/27/2023 16:37:53 With:NONA ELIAS DO Address: [address] [place] [phone] When:2-[address] [facility] 10-27-2023 Note Discharge Instructions Thank you for allowing [facility] to assist you with your healthcare needs. The following is important discharge information regarding your hospital visit. Diagnosis from Today's Visit Hyperglycemia What to Do Next Instructions from Your Care Team No qualifying data available. Post Acute Orders No qualifying data available. You Need to Schedule the Following Appointments Follow Up with NONA ELIAS DO When Within 2-4 days Where: [address] [place] [phone] Allergies Nickel (Hives) Tape (Hives) Medications Please ask your primary doctor or pharmacist before taking any other medication not listed, including over the counter drugs, herbal medications, vitamins and or supplements as they may interact with your home medications. What How Much When Why Instructions Last Dose New metFORMIN (metFORMIN 500 mg oral tablet (IR)) 1 tab(s) by mouth Two (2) times a day Printed Prescription Please take this list to your next doctor s visit. Bring all medications you take, including over the counter medications, herbals and other supplements with you to your doctor s visit. Patients and families are reminded to discard old lists and to update any records with all medication providers or retail pharmacies. Education Materials Diabetes with High Blood Sugar You have been treated for high blood sugar (hyperglycemia). This may be because of an infection or other illness. Or it may be from eating too many sweets or starches. Or it may be from not taking enough insulin or other diabetes medicine. Home care Check your blood sugar level at least 2 times a day. Write it down the results. Do this before breakfast and before dinner. If you take insulin, also write down your routine insulin dose. Note any other doses you needed based on your sliding scale or as advised by your healthcare provider. Do this for the next 3 to 5 days. High blood sugar may cause symptoms that you can learn to spot. These include: Peeing often Thirst Headache Breath that smells fruity Nausea or vomiting Belly pain If you have symptoms of high blood sugar, use a blood or urine test to find out what your blood sugar level is. If it is above your usual range, use the sliding scale regular insulin dose from your healthcare provider. Call your provider for advice if you were not given a range for your insulin dose. If your blood sugar is over 240 mg/dL, check your urine for ketones. Follow-up care Follow up with your healthcare provider, or as advised. You may need to meet with your provider in the next week. You will likely look at your blood sugar records together. You may need to change your dose of insulin or other diabetes medicine. When to seek medical advice Call your healthcare provider right away if these occur: Symptoms of high blood sugar that don't get better with the treatment your provider advised. This is especially true if you also have ketones in your urine. Blood sugar over 300 mg/dl. If you can t reach your healthcare provider, go to a hospital emergency room or urgent care center. Call 911 Call 911 if you have any of the following: Confusion Dizziness, lightheadedness, or loss of consciousness Shortness of breath Chest pain Weakness of an arm, leg, or one side of the face Sudden trouble with speech or vision [phone] [employer]. [address] [place] [address], [place] [id number]. All rights reserved. This information is not intended as a substitute for professional medical care. Always follow your healthcare professional's instructions. Additional Information VACCINATE! IT SAVES LIVES! Members of the community who have not yet received the COVID-19 vaccine and would like to receive it can visit one of [facility] vaccine clinics. There are many vaccine clinic locations within the [facility]. For locations and available times, please visit [email or web address] It is important to note that some COVID mobile vaccine clinics are held outdoors and may be canceled in rainy or stormy conditions. To learn more about pediatric vaccinations (ages 5-11), we invite you to visit the [facility] webpage. [email or web address]/p [email or web address]-Jckvd-Hmgsuohuquy-Freq [email or web address].[email or web address] To learn more about the COVID-19 vaccine, we invite you to visit the CDC website for a list of frequently asked questions. https://www.cdc.gov/coronavirus/ 2019-ncov/vaccines/faq.html [facility] Patient Portal Access Instructions: Stay connected with your healthcare team and access your personal medical information anytime with the [facility] Patient Portal. If you would like a full copy of your medical records please contact the [facility] Medical Records Department Saturday through Saturday between 8a.m. and 4:30p.m. Please follow the directions below to access the portal: 1.Access the email account you provided upon registration to the hospital.2.Look for an invitation email from [facility].3.Open the email and access the invitation link: Accept Invitation to [facility]4.Fill in the required jimenez to create your account. Sign into [email or web address] with your username and password that you created in the above steps to stay up to date. You can then view a summary of results, a summary of your visits, and the ability to download your summaries to your computer or send the information securely to a physician. Remember that your healthcare information is confidential, so carefully consider who you will allow to register on the [facility] Patient Portal for access to your information. You can also access the [facility] Patient Portal on the [employer]. Simply click on Health Records under Health Data and then click on the [employer] logo. HOW TO SAFELY DISPOSE OF PRESCRIPTION MEDICATIONS Please use one of the following methods to safely dispose of your unused medications. 1.Use a drug disposal kit: the drug disposal pouch allows you to safely discard your old and unused drugs. Ask your nurse to give you one when you are discharged.2.Visit a local take-back location: Many local pharmacies and police departments have programs that collect old and unwanted prescription drugs. Call your local pharmacy or go to http://Phybridge.Contents First/1P2Cx0z to find one close to you.3.Make use of household items: Use cat litter or old coffee grounds to dispose medications if other options are not available. Mix your drugs with these household products, seal them in an airtight container and throw it into the garbage. Call [facility]: [phone] to be sure your drugs can be disposed of in this way. Some medicines may require a different approach.4.Never flush your medications down the toilet. IF YOU HAVE BEEN PRESCRIBED AN OPIOIDS FOR PAIN If you have been prescribed an opioid (such as hydrocodone, oxycodone or morphine), it is critical to understand the possible side effects and risks of opioid pain medications. Even when taken as directed, opioids can have several side effects including: Tolerance, meaning you might need to take more of a medication for the same pain relief. Nausea, vomiting and/or constipation. Sleepiness, dizziness, dry mouth, confusion, depression or itching. Physical dependence, meaning you have withdrawal symptoms when a medication is stopped ? this can develop within a few days. KNOW YOUR RESPONSIBILITIES It is important to know exactly how much and how often to take the opioid pain medications you are prescribed. Never take opioids in higher amounts or more often than prescribed. Do not combine opioids with alcohol or other drugs that cause drowsiness, such as benzodiazepines, also known as benzos, including diazepam and alprazolam, muscle relaxants or sleep aids. Never sell or share prescription opioids. This is illegal. Store opioids in a secure place and out of reach of others (including children, family, friends and visitors). The last page(s) of this document has been signed and retained as a CHART COPY Signatures Patient Education Materials Diabetes with High Blood Sugar Medication Leaflets My discharge plan and instructions have been reviewed and explained to me and IJASEN MIK M understand my current condition and have read and understand these discharge instructions. I have received a written copy of the plan/instructions. If I have questions, I am aware that I should contact my doctor. Patient/Print Developer Signature: Date/Time: Relationship to Patient: Witness Name/Signature: Date/Time: [facility] 10-27-2023 Note Discharge Instructions Thank you for allowing [facility] to assist you with your healthcare needs. The following is important discharge information regarding your hospital visit. Diagnosis from Today's Visit Hyperglycemia What to Do Next Instructions from Your Care Team No qualifying data available. Post Acute Orders No qualifying data available. You Need to Schedule the Following Appointments Follow Up with NONA ELIAS DO When Within 2-4 days Where: [address] [facility] [place] [phone]- [phone] Allergies Nickel (Hives) Tape (Hives) Medications Please ask your primary doctor or pharmacist before taking any other medication not listed, including over the counter drugs, herbal medications, vitamins and or supplements as they may interact with your home medications. What How Much When Why Instructions Last Dose New metFORMIN (metFORMIN 500 mg oral tablet (IR)) 1 tab(s) by mouth Two (2) times a day Printed Prescription Unchanged albuterol (ProAir HFA MDI (90 mcg/ inh) inhalation aerosol) 2 puff(s) by inhalation Every 6 hours as needed for as needed for wheezing Duration: 30 Days Unchanged ascorbic acid (Vitamin C 500 mg oral tablet) 1 tab(s) by mouth Once a day Unchanged cholecalciferol (Vitamin D3 1250 mcg (50,000 intl units) oral capsule) 1 cap by mouth Every week Vitamin D deficiency Unchanged cyanocobalamin (B-12 1000 mcg oral tablet) by mouth Once a day Unchanged DME (Blood Glucose Test Machine) See instructions New onset type 2 diabetes mellitus New onset 2 diabetes. Check sugars as directed. Please give formulary preferred Unchanged DME (Blood Glucose Test Strips) See instructions New onset type 2 diabetes mellitus Patient to test twice a day. Please give 90-day supply with 3 refills. Please give formulary preferred to match glucometer. Dx: New onset type 2 diabetes. Unchanged DME (Lancets) See instructions New onset type 2 diabetes mellitus Patient to test twice a day. Please give 90-day supply with 3 refills. Please give formulary preferred. Dx: New onset type 2 diabetes. Unchanged ferrous sulfate (IRON (ferrous sulfate 325 mg) 65 mg oral tablet) 1 tab(s) by mouth Twice daily with meals Take with food. Unchanged folic acid (folic acid 0.4 mg oral tablet) 1 tab(s) by mouth Once a day Unchanged progesterone (progesterone 100 mg oral capsule) 1 cap Unchanged TNF-Med (MiscMED Miscellaneous Medication) See instructions Taking Vitamin K2 and D3 supplement daily. Takes 90mcg of K2 and 5,000 IUs of Vitamin D Please take this list to your next doctor s visit. Bring all medications you take, including over the counter medications, herbals and other supplements with you to your doctor s visit. Patients and families are reminded to discard old lists and to update any records with all medication providers or retail pharmacies. Education Materials Diabetes with High Blood Sugar You have been treated for high blood sugar (hyperglycemia). This may be because of an infection or other illness. Or it may be from eating too many sweets or starches. Or it may be from not taking enough insulin or other diabetes medicine. Home care Check your blood sugar level at least 2 times a day. Write it down the results. Do this before breakfast and before dinner. If you take insulin, also write down your routine insulin dose. Note any other doses you needed based on your sliding scale or as advised by your healthcare provider. Do this for the next 3 to 5 days. High blood sugar may cause symptoms that you can learn to spot. These include: Peeing often Thirst Headache Breath that smells fruity Nausea or vomiting Belly pain If you have symptoms of high blood sugar, use a blood or urine test to find out what your blood sugar level is. If it is above your usual range, use the sliding scale regular insulin dose from your healthcare provider. Call your provider for advice if you were not given a range for your insulin dose. If your blood sugar is over 240 mg/dL, check your urine for ketones. Follow-up care Follow up with your healthcare provider, or as advised. You may need to meet with your provider in the next week. You will likely look at your blood sugar records together. You may need to change your dose of insulin or other diabetes medicine. When to seek medical advice Call your healthcare provider right away if these occur: Symptoms of high blood sugar that don't get better with the treatment your provider advised. This is especially true if you also have ketones in your urine. Blood sugar over 300 mg/dl. If you can t reach your healthcare provider, go to a hospital emergency room or urgent care center. Call 911 Call 911 if you have any of the following: Confusion Dizziness, lightheadedness, or loss of consciousness Shortness of breath Chest pain Weakness of an arm, leg, or one side of the face Sudden trouble with speech or vision [phone] [employer]. [address] [place] [address]. All rights reserved. This information is not intended as a substitute for professional medical care. Always follow your healthcare professional's instructions. Additional Information VACCINATE! IT SAVES LIVES! Members of the community who have not yet received the COVID-19 vaccine and would like to receive it can visit one of [facility] vaccine clinics. There are many vaccine clinic locations within the [facility]. For locations and available times, please visit [email or web address] It is important to note that some COVID mobile vaccine clinics are held outdoors and may be canceled in rainy or stormy conditions. To learn more about pediatric vaccinations (ages 5-11), we invite you to visit the [facility] webpage. https://www.[email or web address].org/p ages/[email or web address]-Praet-Bayodipjyqp-Freq wossja-Vrjyi-Nrgjutdez.html To learn more about the COVID-19 vaccine, we invite you to visit the CDC website for a list of frequently asked questions. https://www.cdc.gov/coronavirus/ 2019-ncov/vaccines/faq.html [facility] Patient Portal Access Instructions: Stay connected with your healthcare team and access your personal medical information anytime with the [facility] Patient Portal. If you would like a full copy of your medical records please contact the [facility] Medical Records Department Saturday through Saturday between 8a.m. and 4:30p.m. Please follow the directions below to access the portal: 1.Access the email account you provided upon registration to the [facility].2.Look for an invitation email from [facility].3.Open the email and access the invitation link: Accept Invitation to [facility]4.Fill in the required jimenez to create your account. Sign into [email or web address] with your username and password that you created in the above steps to stay up to date. You can then view a summary of results, a summary of your visits, and the ability to download your summaries to your computer or send the information securely to a physician. Remember that your healthcare information is confidential, so carefully consider who you will allow to register on the [facility] Patient Portal for access to your information. You can also access the [facility] Patient Portal on the [employer]. Simply click on Health Records under Health Data and then click on the [employer] logo. HOW TO SAFELY DISPOSE OF PRESCRIPTION MEDICATIONS Please use one of the following methods to safely dispose of your unused medications. 1.Use a drug disposal kit: the drug disposal pouch allows you to safely discard your old and unused drugs. Ask your nurse to give you one when you are discharged.2.Visit a local take-back location: Many local pharmacies and police departments have programs that collect old and unwanted prescription drugs. Call your local pharmacy or go to http://Phy[employer].Contents First/5I0Ht5j to find one close to you.3.Make use of household items: Use cat litter or old coffee grounds to dispose medications if other options are not available. Mix your drugs with these household products, seal them in an airtight container and throw it into the garbage. Call [facility]: [phone] to be sure your drugs can be disposed of in this way. Some medicines may require a different approach.4.Never flush your medications down the toilet. IF YOU HAVE BEEN PRESCRIBED AN OPIOIDS FOR PAIN If you have been prescribed an opioid (such as hydrocodone, oxycodone or morphine), it is critical to understand the possible side effects and risks of opioid pain medications. Even when taken as directed, opioids can have several side effects including: Tolerance, meaning you might need to take more of a medication for the same pain relief. Nausea, vomiting and/or constipation. Sleepiness, dizziness, dry mouth, confusion, depression or itching. Physical dependence, meaning you have withdrawal symptoms when a medication is stopped ? this can develop within a few days. KNOW YOUR RESPONSIBILITIES It is important to know exactly how much and how often to take the opioid pain medications you are prescribed. Never take opioids in higher amounts or more often than prescribed. Do not combine opioids with alcohol or other drugs that cause drowsiness, such as benzodiazepines, also known as benzos, including diazepam and alprazolam, muscle relaxants or sleep aids. Never sell or share prescription opioids. This is illegal. Store opioids in a secure place and out of reach of others (including children, family, friends and visitors). The last page(s) of this document has been signed and retained as a CHART COPY Signatures Patient Education Materials Diabetes with High Blood Sugar Medication Leaflets My discharge plan and instructions have been reviewed and explained to me and I,MIK SANDRA M understand my current condition and have read and understand these discharge instructions. I have received a written copy of the plan/instructions. If I have questions, I am aware that I should contact my doctor. Patient/Print Developer Signature: Date/Time: Relationship to Patient: Witness Name/Signature: Date/Time: [facility] 10-27-2023 Note Sinus rhythm Borderline intraventricular conduction delay Compared to ECG at 03/25/2021 17:17:16 BORDERLINE ECG Electronic Signature: TEDADRISwetha GRISELDA 10/27/2023 19:10:37 [facility] 10-27-2023 Note ORIGINAL EXAMINATION: ONE XRAY VIEW OF THE CHEST 10/27/2023 6:32 pm COMPARISON: 03/25/2021 HISTORY: ORDERING SYSTEM PROVIDED HISTORY: Reason for Exam: near syncope FINDINGS: Stable cardiomediastinal silhouette when accounting for differences in projection and technique. Low lung volumes with bronchovascular crowding and streaky bibasilar opacities. No large pleural effusion or visible pneumothorax. Osseous structures are poorly evaluated secondary to body habitus and portable technique. Degenerative changes seen in the spine. IMPRESSION: Limited exam. Low lung volumes with presumed hypoventilatory changes. I have personally reviewed the images of this examination and agree with the resident's findings and interpretation. Interpreted by: Sara Roberts MD Preliminary Report By: Jaime Mcguire Electronically signed By Sara Roberts MD Dictated Date: 10/27/2023 6:45:23 PM Prelim Date: 10/27/2023 6:46:43 PM Sign Date: 10/27/2023 6:49:59 PM Ordering Provider: GRISELDA [facility] [address] 10-25-2023 Telephone encounter Note Mik returned call - please return call to Mik. [employer] 10-25-2023 Telephone encounter Note Call placed to patient to review recent sleep study results. Voicemail left. [employer] 10-24-2023 Telephone encounter Note Images from the original note were not included. Pt completed her SS test and results in media. Please review the results and thank you. [employer] 10-02-2023 Note [facility] SURGICAL WEIGHT LOSS MANAGEMENT PROGRAM PROGRESS NOTE FOLLOW UP Patient: Mik Sandra Date of : 1985 Service Date: 10/02/2023 DE Visit number: 6 of 6 Pre Program Weight Metrics Date of Initial Consultation:@FLOWLAST([id number])@ Initial Weight: @FLOWLAST([id number])@ Initial BMI: @FLOWLAST([id number])@ Joseph Body Weight: @FLOWLAST([id number])@ Excess Body Weight: @FLOWLAST([id number])@ Follow Up Weight Metrics Last Three Weights Including Today's Weight: Wt Readings from Last 3 Encounters: 10/02/23 (!) 365 lb (166 kg) 09/06/23 (!) 360 lb (163 kg) 08/09/23 (!) 357 lb 12.8 oz (162 kg) Today's BMI: BMI: 51.63 %EBWL: % EBWL: -9% Weight Chance Since Last Visit: Weight Change: 5 lbs Weight Change from Initial DE/SPR Weight: Total Weight Change: 17.8 lbs Patient has the following question(s): none Falls Risk Assessment Patient does nottake medications which affect BP or mental status Patient does not have newly prescribed or changed dosage of medications within past 30 days which affect BP or mental status Patient has not fallen in the past 2 months Patient does notdemonstrate unsteady gait Patient uses the following ambulatory assistive devices:cane Patient states the presence of the following traits which increases risk of fall: bad hip Patient is not on home O2 Completed by: Netta Julio MA [facility] 10-02-2023 History of Present illness Narrative [facility] [place] SURGICAL WEIGHT LOSS MANAGEMENT PROGRAM PROGRESS NOTE FOLLOW UP Patient: Mik Sandra Date of : 1985 Service Date: 10/02/2023 DE Visit number: 6 of 6 Pre Program Weight Metrics Date of Initial Consultation:@FLOWLAST([id number])@ Initial Weight: @FLOWLAST([id number])@ Initial BMI: @FLOWLAST([id number])@ Joseph Body Weight: @FLOWLAST([id number])@ Excess Body Weight: @FLOWLAST([id number])@ Follow Up Weight Metrics Last Three Weights Including Today's Weight: Wt Readings from Last 3 Encounters: 10/02/23 (!) 365 lb (166 kg) 09/06/23 (!) 360 lb (163 kg) 08/09/23 (!) 357 lb 12.8 oz (162 kg) Today's BMI: BMI: 51.63 %EBWL: % EBWL: -9% Weight Chance Since Last Visit: Weight Change: 5 lbs Weight Change from Initial DE/SPR Weight: Total Weight Change: 17.8 lbs Patient has the following question(s): none Falls Risk Assessment Patient does nottake medications which affect BP or mental status Patient does not have newly prescribed or changed dosage of medications within past 30 days which affect BP or mental status Patient has not fallen in the past 2 months Patient does notdemonstrate unsteady gait Patient uses the following ambulatory assistive devices:cane Patient states the presence of the following traits which increases risk of fall: bad hip Patient is not on home O2 Completed by: Netta Julio MA HPI, PHYSICAL EXAM, AND PLAN Patient is here today for follow up of their physician supervised diet and exercise in preparation for weight loss surgery. Weight trend since last visit: gain 5 lb over 1 month stable water retention This patient's excess weight is causing the following co-morbid conditions at this time Joint Pain Plan: Physical Examination: Blood pressure (!) 149/82, pulse 83, height 5' 10.5 (1.791 m), weight (!) 365 lb (166 kg). General: This patient is alert and oriented X3 General: This patient is awake, alert, and oriented, and is in no apparent distress. Extremities: No cyanosis, clubbing or edema/ No calf tenderness/No restrictions of movement, is ambulatory without assistance. Neurological: Intact x 4 extremities, no focal deficits notes. Skin: No rashes or lesions noted. Assessment of Current Diet and Exercise Current Diet This patient s current diet is: 80% meal plan Her diet contains adequate amounts of protein, inadequate amounts of healthy fats, adequate amounts of green, leafy vegetables, and adequate amounts of fruits. Her comfort foods include: none Current Activity This patient currently does exercise for 30 Minutes per session, 4 times per week, including the following: walking. Current Eating Behaviors This patients demonstrates the following behaviors as they relate to her eating: structured She eats approximately 3-4 times per day. Her last meal/snack was at 6 am/pm. Plan: Joint Pain: stable, continue medical management, DE and plan for metabolic weight loss surgery. Advised patient that She must continue to adhere to regular monthly visits to meet the requirements of her insurance company. Additionally, She is to adopt eating plan recommendations and show weight loss trend to demonstrate readiness for the changes that will be required following surgery. Patient's weight pattern does demonstrates meal plan adoption and weight loss each month Physician Diet Recommendations provided in Patient Instructions Patient: [] To return in one month for follow up. Comorbids managing [x] Has completed insurance required monthly diet and exercise series [x] Needs to continue monthly visits until surgery Other: Current Meds Patient's Medications New Prescriptions No medications on file Previous Medications MECLIZINE (ANTIVERT) 25 MG TABLET Take 25 mg by mouth 3 times daily as needed for dizziness. NAPROXEN (NAPROSYN) 250 MG TABLET Take 500 mg by mouth Daily as needed for mild pain (1-3). PROAIR HFA 108 (90 BASE) MCG/ACT INHALER Inhale 2 puffs every 6 hours as needed. Modified Medications No medications on file Discontinued Medications No medications on file I spend a total of 20 minutes on the same day of the visit in discussing/counseling the patient regarding the diet and exercise in the preparation for weight loss surgery.Education on the meal plan and 7 rules of eating is provided. Meal prep is encouraged as a foundation of the meal plan. Food journal is encouraged as a feedback system before and after bariatric surgery. Counseling on no nicotine/alcohol before and after surgery. Exercise and its role in the preparation for weight loss surgery is explained. Joint pain Is associated with obesity and weight loss is discussed as a treatment option for joint pain Full chart review was performed.Clinical documentation is updated and completed. documented in this encounter [facility] Note Addended by: LONA HADDAD on: 09/24/2023 02:42 PM Modules accepted: Orders [facility] [employer] [facility] 09-24-2023 Note Addended by: LONA HADDAD on: 09/24/2023 02:42 PM Modules accepted: Orders [employer] Phone: 09-24-2023 Note Addended by: LONA HADDAD on: 09/24/2023 02:42 PM Modules accepted: Orders [employer] Phone: 09-24-2023 Telephone encounter Note Orders signed. [facility] 09-24-2023 Miscellaneous Notes Addended by: LONA CHAMBERS on: 09/24/2023 02:42 PM Modules accepted: Orders Orders signed. Addended by: TARSHA REYNA on: 09/24/2023 11:12 AM Modules accepted: Orders Orders mailed Addended by: LONA CHAMBERS on: 05/20/2023 08:12 AM Modules accepted: Orders Orders signed. Addended by: CHLOÉ HANSON on: 05/17/2023 04:23 PM Modules accepted: Orders Orders pended, pre-op checklist scanned PLAN No diagnosis found. I have recommended proceeding with the evaluation and work-up for the primary procedure as outlined below: Dr. Dunn PATIENT SUMMARY Mik Sandra 37 y.o. female with There is no height or weight on file to calculate BMI. Laparoscopic Sleeve Gastrectomy and Laparoscopic Liver Biopsy DM[] HTN[] BANDAR[] GERD[] HL[] Back pain [x] Date of Surgery: TBD NONA ELIAS, DO INITIAL TESTING RESULTS Labwork [x] CMP, TSH, Fasting Lipid Profile, Mg, Zinc, Vit B1 (whole blood), Vit B12, 25-OH Vit D, Fe, Ferritin, Folate Tobacco [x] Serum Nicotine / Cotinine [] Negative [] Positive PLEASE ADD SERUM NICOTINE/COTININE WITH INITIAL LABS ON ALL LRYGB PROCEDURES EGD [] Dx: [] GERD [x] Dyspepsia [] Other Pathology [x] H. pylori [] Negative [] Positive UGI [x] [] not ordered US Abdomen [] [] not ordered BANDAR eval [] [] On CPAP / Obtain settings Hematology [] [] Hypercoagulation panel Toxicology [x] [x] Urine drug screen [x] EtOH screen Addtional [x] [x] Hgb A1c INITIAL CONSULTATIONS CLEARANCE / MANAGEMENT Psychology [x] Dietitian [x] Cardiology [x] Pulmonary [x] Others [] []Heme/Onc []Psychiatry []Pain mgmt PSD [x] Physician supervised diet: []None []3 mos [x]6 mos Preop diet [x] Preop low calorie diet: []None []1 wk [x]2 wks FINAL PRE-OP TESTING RESULTS Labwork [x] [x]Pre-op CBC [x]BMP []Serum Nicotine / Cotinine EKG [x] CXR [x] POST-OP MEDICATIONS Ulcer Ppx [] Omeprazole 20 mg PO []QD []BID Gallstone Ppx [] Ursodiol 300 mg []BID DVT Ppx [x] DVT prophylaxis per final preop visit estimated risk Estimated calculated risk: % Schedule final pre-operative office visit with surgeon, pre-operative education class, and pre-operative exercise class prior to date of surgery ATTESTATION I reviewed with the patient the details of the proposed operation. The risks benefits and options were discussed. Risks included but were not limited to bleeding, infection, damage to other surrounding organs, cardio-pulmonary complications related to anesthesia, conversion from laparoscopic to and open procedure, the need for reoperative or endoscopic therapy, the potential for prolonged mechanical ventilation, and . All questions were fully answered to the patient's satisfaction and they wish to proceed with surgical intervention. Greater than 51% of the 45 minute visit was spent as face to face encounter, counseling the patient and discussing the risks,benefits and options of surgery as well as the perioperative care plan. The patient was seen and examined independently and relevant data including a full chart rreview was performed by myself. Initial New [facility] surgical patient Navigation & Financial Counseling Discussion Patient Communication: In office SURGEON: [] JZ [] AD [] MP [x] TB [] LM PROCEDURE: [] LRYGB [] LSG [] LAURA-S [] LAURA [] UNDECIDED [] REV: SPECIFY: Confirmed pt wants to continue with surgical program/plan [] YES [] NO (complete program withdrawal note/process) CO-MORBIDS: [] NONE [] DM []HTN [] BANDAR []GERD [] OTH: PRIVATE PAY: [] NO []YES DATE OF INITIAL BENEFITS VERIFICATION: TRANSFER FU: [] YES [] NO PRIMARY INSURANCE: Pay[place]: [place] [employer] / Plan: [place] [employer] ODM / Product Type: Medicaid HMO / BENEFIT ON PLAN: [] NO [] YES BENEFIT MAX: [] NO [] YES -- BENEFIT MAX: $ EMPLOYER: DIET AND EXERCISE (DE) REQUIREMENT PRIMARY [] NONE []3M [x] 6M []9M [] Medicare 4 Months [] SPR (3M) []OTHER: SECONDARY INSURANCE: BENEFIT ON PLAN: [] NO [] YES BENEFIT MAX: [] NO [] YES -- BENEFIT MAX: $ AUTH REQUIRED FROM SECONDARY [] NO [] YES DIET AND EXERCISE REQUIREMENT SECONDARY [] NONE []3M [] 6M [] Medicare 4 months [] SPR (3M) []OTHER: ___ [x] Discussed with patient: Financial cost overview (document signed and pt given copy at new pt consult visit with surgeon), Initial appointments: Bariatric Nutrition Assessment (BNA) & Diet and Exercise (DE) Patient to look for yellow envelope in mail. This yellow envelope will contain orders for labs, testing and required clearances. Pt encouraged to complete early in program to prevent delays. Encourage blood work to be draw by 1st DE appointment. [x] Reviewed OOP cost, including: [] Optifast cost of approximately $130-140/week x weeks immediately prior to surgery - used to induce rapid weight loss which results in decrease in size of liver and therefore facilitates laparoscopically surgery approach. [x] Overview of inpatient admission benefits - estimated inpatient co-pays, deductibles and/or co-insurance - Estimated OOP costs form reviewed with patient, and copy given to patient at new pt visit. 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 [x] Patient reminded to arrive 15 minutes early for check in. Late arrivals may need to be rescheduled. 2) Schedule: Diet and Exercise Apt #2 only scheduled after initial BNA and DE completed, 3) Behavioral Health apt scheduled after DE started. Reviewed rational and goal of Behavioral Health appointments. 4) [x] Reinforced need to cancel any WMI appointments 48 hours in advance. Cautioned NS/Same day cancellations may result in delay in program or program completion hold. Noted: DE series needs to be a monthly series or insurance company may require repeat of the entire series. 5) [x] Smoker/tobacco products including vaping: reviewed need for cessation before surgery clearance and life long abstinence after surgery for best outcomes. Patient navigation to surgery: [x] Explained to patient that average time from initial consult to date of surgery can be 6-8 months. - Process can take longer if there are cancelled appointments, delays in testing and/or additional clearances that needs to be completed. - Reviewed importance of patient active engagement in making and keeping appointments to keep the process moving. - Reinforced need to cancel appointments at least 48 hours in advance. Reviewed that instances of No Shows and Same Day Appointment Cancellations may result in program/surgery delay or hold. [x] Patient advised of importance of having voicemail and MyChart for office communications and lab/testing results before and after surgery. documented in this encounter [facility] 09-24-2023 Note Addended by: TARSHA REYNA on: 09/24/2023 11:12 AM Modules accepted: Orders [facility] 09-24-2023 Note Addended by: TARSHA REYNA on: 09/24/2023 11:12 AM Modules accepted: Orders [facility] 09-24-2023 Note Addended by: TARSHA REYNA on: 09/24/2023 11:12 AM Modules accepted: Orders [facility] 09-06-2023 Note [facility] SURGICAL WEIGHT LOSS MANAGEMENT PROGRAM PROGRESS NOTE FOLLOW UP Patient: Mik Sandra Date of : 1985 Service Date: 09/06/2023 DE Visit number: 5 of 6 Pre Program Weight Metrics Date of Initial Consultation:@FLOWLAST([id number])@ Initial Weight: @FLOWLAST([id number])@ Initial BMI: @FLOWLAST([id number])@ Joseph Body Weight: @FLOWLAST([id number])@ Excess Body Weight: @FLOWLAST([id number])@ Follow Up Weight Metrics Last Three Weights Including Today's Weight: Wt Readings from Last 3 Encounters: 09/06/23 (!) 360 lb (163 kg) 08/09/23 (!) 357 lb 12.8 oz (162 kg) 08/05/23 (!) 356 lb (161 kg) Today's BMI: BMI: 50.92 %EBWL: % EBWL: -7% Weight Chance Since Last Visit: Weight Change: 2.2 lbs Weight Change from Initial DE/SPR Weight: Total Weight Change: 12.8 lbs Patient has the following question(s): none Falls Risk Assessment Patient does nottake medications which affect BP or mental status Patient does not have newly prescribed or changed dosage of medications within past 30 days which affect BP or mental status Patient has not fallen in the past 2 months Patient does notdemonstrate unsteady gait Patient uses the following ambulatory assistive devices: none Patient states the presence of the following traits which increases risk of fall: none Patient is not on home O2 Completed by: Betsy Stahl LPN [facility] 09-06-2023 History of Present illness Narrative [facility] WE[facility] MANAGEMENT PROGRAM PROGRESS NOTE FOLLOW UP Patient: Mik Sandra Date of : 1985 Service Date: 09/06/2023 DE Visit number: 5 of 6 Pre Program Weight Metrics Date of Initial Consultation:@FLOWLAST([id number])@ Initial Weight: @FLOWLAST([id number])@ Initial BMI: @FLOWLAST([id number])@ Joseph Body Weight: @FLOWLAST([id number])@ Excess Body Weight: @FLOWLAST([id number])@ Follow Up Weight Metrics Last Three Weights Including Today's Weight: Wt Readings from Last 3 Encounters: 09/06/23 (!) 360 lb (163 kg) 08/09/23 (!) 357 lb 12.8 oz (162 kg) 08/05/23 (!) 356 lb (161 kg) Today's BMI: BMI: 50.92 %EBWL: % EBWL: -7% Weight Chance Since Last Visit: Weight Change: 2.2 lbs Weight Change from Initial DE/SPR Weight: Total Weight Change: 12.8 lbs Patient has the following question(s): none Falls Risk Assessment Patient does nottake medications which affect BP or mental status Patient does not have newly prescribed or changed dosage of medications within past 30 days which affect BP or mental status Patient has not fallen in the past 2 months Patient does notdemonstrate unsteady gait Patient uses the following ambulatory assistive devices: none Patient states the presence of the following traits which increases risk of fall: none Patient is not on home O2 Completed by: Betsy Stahl LPN HPI, PHYSICAL EXAM, AND PLAN Patient is here today for follow up of their physician supervised diet and exercise in preparation for weight loss surgery. Weight trend since last visit: gain 3 lb over 1 month stable water retention This patient's excess weight is causing the following co-morbid conditions at this time Joint Pain Plan: Physical Examination: Blood pressure 135/86, pulse 101, height 5' 10.5 (1.791 m), weight (!) 360 lb (163 kg). General: This patient is alert and oriented X3 General: This patient is awake, alert, and oriented, and is in no apparent distress. Extremities: No cyanosis, clubbing or edema/ No calf tenderness/No restrictions of movement, is ambulatory without assistance. Neurological: Intact x 4 extremities, no focal deficits notes. Skin: No rashes or lesions noted. Assessment of Current Diet and Exercise Current Diet This patient s current diet is: 80% meal plan Her diet contains adequate amounts of protein, inadequate amounts of healthy fats, adequate amounts of green, leafy vegetables, and adequate amounts of fruits. Her comfort foods include: none Current Activity This patient currently does exercise for 30 Minutes per session, 4 times per week, including the following: walking. Current Eating Behaviors This patients demonstrates the following behaviors as they relate to her eating: structured She eats approximately 3-4 times per day. Her last meal/snack was at 6 am/pm. Plan: Joint Pain: stable, continue medical management, DE and plan for metabolic weight loss surgery. Advised patient that She must continue to adhere to regular monthly visits to meet the requirements of her insurance company. Additionally, She is to adopt eating plan recommendations and show weight loss trend to demonstrate readiness for the changes that will be required following surgery. Patient's weight pattern does demonstrates meal plan adoption and weight loss each month Physician Diet Recommendations provided in Patient Instructions Patient: [x] To return in one month for follow up. Comorbids managing [] Has completed insurance required monthly diet and exercise series [] Needs to continue monthly visits until surgery Other: Current Meds Patient's Medications New Prescriptions No medications on file Previous Medications MECLIZINE (ANTIVERT) 25 MG TABLET Take 25 mg by mouth 3 times daily as needed for dizziness. NAPROXEN (NAPROSYN) 250 MG TABLET Take 500 mg by mouth Daily as needed for mild pain (1-3). PROAIR HFA 108 (90 BASE) MCG/ACT INHALER Inhale 2 puffs every 6 hours as needed. Modified Medications No medications on file Discontinued Medications No medications on file I spend a total of 20 minutes on the same day of the visit in discussing/counseling the patient regarding the diet and exercise in the preparation for weight loss surgery.Education on the meal plan and 7 rules of eating is provided. Meal prep is encouraged as a foundation of the meal plan. Food journal is encouraged as a feedback system before and after bariatric surgery. Counseling on no nicotine/alcohol before and after surgery. Exercise and its role in the preparation for weight loss surgery is explained. Join pain Is associated with obesity and weight loss is discussed as a treatment option for join pain Full chart review was performed.Clinical documentation is updated and completed. documented in this encounter [facility] 08-09-2023 Note [facility] WEIGHT LOSS MANAGEMENT PROGRAM PROGRESS NOTE FOLLOW UP Patient: Mik Sandra Date of : 1985 Service Date: 08/09/2023 DE Visit number: 4 of 6 Pre Program Weight Metrics Date of Initial Consultation:@FLOWLAST([id number])@ Initial Weight: @FLOWLAST([id number])@ Initial BMI: @FLOWLAST([id number])@ Joseph Body Weight: @FLOWLAST([id number])@ Excess Body Weight: @FLOWLAST([id number])@ Follow Up Weight Metrics Last Three Weights Including Today's Weight: Wt Readings from Last 3 Encounters: 08/09/23 (!) 357 lb 12.8 oz (162 kg) 08/05/23 (!) 356 lb (161 kg) 07/17/23 (!) 354 lb (161 kg) Today's BMI: BMI: 50.61 %EBWL: % EBWL: -5% Weight Chance Since Last Visit: Weight Change: 3.8 lbs Weight Change from Initial DE/SPR Weight: Total Weight Change: 10.6 lbs Patient has the following question(s): none Falls Risk Assessment Patient does nottake medications which affect BP or mental status Patient does not have newly prescribed or changed dosage of medications within past 30 days which affect BP or mental status Patient has not fallen in the past 2 months Patient does notdemonstrate unsteady gait Patient uses the following ambulatory assistive devices: done Patient states the presence of the following traits which increases risk of fall: none Patient is not on home O2 Completed by: Betsy Stahl LPN [facility] 08-09-2023 History of Present illness Narrative HPI, PHYSICAL EXAM, AND PLAN Patient is here today for follow up of their physician supervised diet and exercise in preparation for weight loss surgery. Weight trend since last visit: gain 3 lb over 1 month stable water retention This patient's excess weight is causing the following co-morbid conditions at this time Joint Pain Plan: Physical Examination: Blood pressure 139/85, pulse 76, height 5' 10.5 (1.791 m), weight (!) 357 lb 12.8 oz (162 kg). General: This patient is alert and oriented X3 General: This patient is awake, alert, and oriented, and is in no apparent distress. Extremities: No cyanosis, clubbing or edema/ No calf tenderness/No restrictions of movement, is ambulatory without assistance. Neurological: Intact x 4 extremities, no focal deficits notes. Skin: No rashes or lesions noted. Assessment of Current Diet and Exercise Current Diet This patient s current diet is: 80% meal plan Her diet contains adequate amounts of protein, inadequate amounts of healthy fats, adequate amounts of green, leafy vegetables, and adequate amounts of fruits. Her comfort foods include: none Current Activity This patient currently does exercise for 30 Minutes per session, 4 times per week, including the following: walking. Current Eating Behaviors This patients demonstrates the following behaviors as they relate to her eating: structured She eats approximately 3-4 times per day. Her last meal/snack was at 6 am/pm. Plan: Joint Pain: stable, continue medical management, DE and plan for metabolic weight loss surgery. Advised patient that She must continue to adhere to regular monthly visits to meet the requirements of her insurance company. Additionally, She is to adopt eating plan recommendations and show weight loss trend to demonstrate readiness for the changes that will be required following surgery. Patient's weight pattern does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 Schedule: Diet and Exercise Apt #2 only scheduled after initial BNA and DE completed, 3) Behavioral Health apt scheduled after DE started. Reviewed rational and goal of Behavioral Health appointments. 4) [x] Reinforced need to cancel any [facility] appointments 48 hours in advance. Cautioned NS/Same day cancellations may result in delay in program or program completion hold. Noted: DE series needs to be a monthly series or insurance company may require repeat of the entire series. 5) [x] Smoker/tobacco products including vaping: reviewed need for cessation before surgery clearance and life long abstinence after surgery for best outcomes. Patient navigation to surgery: [x] Explained to patient that average time from initial consult to date of surgery can be 6-8 months. - Process can take longer if there are cancelled appointments, delays in testing and/or additional clearances that needs to be completed. - Reviewed importance of patient active engagement in making and keeping appointments to keep the process moving. - Reinforced need to cancel appointments at least 48 hours in advance. Reviewed that instances of No Shows and Same Day Appointment Cancellations may result in program/surgery delay or hold. [x] Patient advised of importance of having voicemail and MyChart for office communications and lab/testing results before and after surgery. documented in this encounter [facility] 05-20-2023 Note Addended by: LONA HADDAD on: 05/20/2023 08:12 AM Modules accepted: Orders [facility] 05-20-2023 Note Addended by: LONA HADDAD on: 05/20/2023 08:12 AM Modules accepted: Orders [facility] 05-20-2023 Note Addended by: LONA HADDAD on: 05/20/2023 08:12 AM Modules accepted: Orders [facility] 05-20-2023 Note Addended by: LONA HADDAD on: 05/20/2023 08:12 AM Modules accepted: Orders [facility] 05-20-2023 Telephone encounter Note Orders signed. [facility] 05-20-2023 Miscellaneous Notes Addended by: LONA CHAMBERS on: 05/20/2023 08:12 AM Modules accepted: Orders Orders signed. Addended by: CHLOÉ HANSON on: 05/17/2023 04:23 PM Modules accepted: Orders Orders pended, pre-op checklist scanned PLAN No diagnosis found. I have recommended proceeding with the evaluation and work-up for the primary procedure as outlined below: Dr. Dunn PATIENT SUMMARY Mik Sandra 37 y.o. female with There is no height or weight on file to calculate BMI. Laparoscopic Sleeve Gastrectomy and Laparoscopic Liver Biopsy DM[] HTN[] BANDAR[] GERD[] HL[] Back pain [x] Date of Surgery: TBD NONA ELIAS, DO INITIAL TESTING RESULTS Labwork [x] CMP, TSH, Fasting Lipid Profile, Mg, Zinc, Vit B1 (whole blood), Vit B12, 25-OH Vit D, Fe, Ferritin, Folate Tobacco [x] Serum Nicotine / Cotinine [] Negative [] Positive PLEASE ADD SERUM NICOTINE/COTININE WITH INITIAL LABS ON ALL LRYGB PROCEDURES EGD [] Dx: [] GERD [x] Dyspepsia [] Other Pathology [x] H. pylori [] Negative [] Positive UGI [x] [] not ordered US Abdomen [] [] not ordered BANDAR eval [] [] On CPAP / Obtain settings Hematology [] [] Hypercoagulation panel Toxicology [x] [x] Urine drug screen [x] EtOH screen Addtional [x] [x] Hgb A1c INITIAL CONSULTATIONS CLEARANCE / MANAGEMENT Psychology [x] Dietitian [x] Cardiology [x] Pulmonary [x] Others [] []Heme/Onc []Psychiatry []Pain mgmt PSD [x] Physician supervised diet: []None []3 mos [x]6 mos Preop diet [x] Preop low calorie diet: []None []1 wk [x]2 wks FINAL PRE-OP TESTING RESULTS Labwork [x] [x]Pre-op CBC [x]BMP []Serum Nicotine / Cotinine EKG [x] CXR [x] POST-OP MEDICATIONS Ulcer Ppx [] Omeprazole 20 mg PO []QD []BID Gallstone Ppx [] Ursodiol 300 mg []BID DVT Ppx [x] DVT prophylaxis per final preop visit estimated risk Estimated calculated risk: % Schedule final pre-operative office visit with surgeon, pre-operative education class, and pre-operative exercise class prior to date of surgery ATTESTATION I reviewed with the patient the details of the proposed operation. The risks benefits and options were discussed. Risks included but were not limited to bleeding, infection, damage to other surrounding organs, cardio-pulmonary complications related to anesthesia, conversion from laparoscopic to and open procedure, the need for reoperative or endoscopic therapy, the potential for prolonged mechanical ventilation, and . All questions were fully answered to the patient's satisfaction and they wish to proceed with surgical intervention. Greater than 51% of the 45 minute visit was spent as face to face encounter, counseling the patient and discussing the risks,benefits and options of surgery as well as the perioperative care plan. The patient was seen and examined independently and relevant data including a full chart rreview was performed by myself. Initial New [facility] surgical patient Navigation & Financial Counseling Discussion Patient Communication: In office SURGEON: [] JHolden [] AD [] MP [x] TB [] LM PROCEDURE: [] LRYGB [] LSG [] LAURA-S [] LAURA [] UNDECIDED [] REV: SPECIFY: Confirmed pt wants to continue with surgical program/plan [] YES [] NO (complete program withdrawal note/process) CO-MORBIDS: [] NONE [] DM []HTN [] BANDAR []GERD [] OTH: PRIVATE PAY: [] NO []YES DATE OF INITIAL BENEFITS VERIFICATION: TRANSFER FU: [] YES [] NO PRIMARY INSURANCE: Pay[place]: [place] [employer] / Plan: [place] ODM / Product Type: Medicaid HMO / BENEFIT ON PLAN: [] NO [] YES BENEFIT MAX: [] NO [] YES -- BENEFIT MAX: $ EMPLOYER: DIET AND EXERCISE (DE) REQUIREMENT PRIMARY [] NONE []3M [x] 6M []9M [] Medicare 4 Months [] SPR (3M) []OTHER: SECONDARY INSURANCE: BENEFIT ON PLAN: [] NO [] YES BENEFIT MAX: [] NO [] YES -- BENEFIT MAX: $ AUTH REQUIRED FROM SECONDARY [] NO [] YES DIET AND EXERCISE REQUIREMENT SECONDARY [] NONE []3M [] 6M [] Medicare 4 months [] SPR (3M) []OTHER: ___ [x] Discussed with patient: Financial cost overview (document signed and pt given copy at new pt consult visit with surgeon), Initial appointments: Bariatric Nutrition Assessment (BNA) & Diet and Exercise (DE) Patient to look for yellow envelope in mail. This yellow envelope will contain orders for labs, testing and required clearances. Pt encouraged to complete early in program to prevent delays. Encourage blood work to be draw by 1st DE appointment. [x] Reviewed OOP cost, including: [] Optifast cost of approximately $130-140/week x weeks immediately prior to surgery - used to induce rapid weight loss which results in decrease in size of liver and therefore facilitates laparoscopically surgery approach. [x] Overview of inpatient admission benefits - estimated inpatient co-pays, deductibles and/or co-insurance - Estimated OOP costs form reviewed with patient, and copy given to patient at new pt visit. 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 [x] Patient reminded to arrive 15 minutes early for check in. Late arrivals may need to be rescheduled. 2) Schedule: Diet and Exercise Apt #2 only scheduled after initial BNA and DE completed, 3) Behavioral Health apt scheduled after DE started. Reviewed rational and goal of Behavioral Health appointments. 4) [x] Reinforced need to cancel any [facility] appointments 48 hours in advance. Cautioned NS/Same day cancellations may result in delay in program or program completion hold. Noted: DE series needs to be a monthly series or insurance company may require repeat of the entire series. 5) [x] Smoker/tobacco products including vaping: reviewed need for cessation before surgery clearance and life long abstinence after surgery for best outcomes. Patient navigation to surgery: [x] Explained to patient that average time from initial consult to date of surgery can be 6-8 months. - Process can take longer if there are cancelled appointments, delays in testing and/or additional clearances that needs to be completed. - Reviewed importance of patient active engagement in making and keeping appointments to keep the process moving. - Reinforced need to cancel appointments at least 48 hours in advance. Reviewed that instances of No Shows and Same Day Appointment Cancellations may result in program/surgery delay or hold. [x] Patient advised of importance of having voicemail and MyChart for office communications and lab/testing results before and after surgery. documented in this encounter [facility] 05-17-2023 Note PLAN No diagnosis found. I have recommended proceeding with the evaluation and work-up for the primary procedure as outlined below: Dr. Dunn PATIENT SUMMARY Mik Sandra 37 y.o. female with There is no height or weight on file to calculate BMI. Laparoscopic Sleeve Gastrectomy and Laparoscopic Liver Biopsy DM[] HTN[] BANDAR[] GERD[] HL[] Back pain [x] Date of Surgery: TBD NONA ELIAS, DO INITIAL TESTING RESULTS Labwork [x] CMP, TSH, Fasting Lipid Profile, Mg, Zinc, Vit B1 (whole blood), Vit B12, 25-OH Vit D, Fe, Ferritin, Folate Tobacco [x] Serum Nicotine / Cotinine [] Negative [] Positive PLEASE ADD SERUM NICOTINE/COTININE WITH INITIAL LABS ON ALL LRYGB PROCEDURES EGD [] Dx: [] GERD [x] Dyspepsia [] Other Pathology [x] H. pylori [] Negative [] Positive UGI [x] [] not ordered US Abdomen [] [] not ordered BANDAR eval [] [] On CPAP / Obtain settings Hematology [] [] Hypercoagulation panel Toxicology [x] [x] Urine drug screen [x] EtOH screen Addtional [x] [x] Hgb A1c INITIAL CONSULTATIONS CLEARANCE / MANAGEMENT Psychology [x] Dietitian [x] Cardiology [x] Pulmonary [x] Others [] []Heme/Onc []Psychiatry []Pain mgmt PSD [x] Physician supervised diet: []None []3 mos [x]6 mos Preop diet [x] Preop low calorie diet: []None []1 wk [x]2 wks FINAL PRE-OP TESTING RESULTS Labwork [x] [x]Pre-op CBC [x]BMP []Serum Nicotine / Cotinine EKG [x] CXR [x] POST-OP MEDICATIONS Ulcer Ppx [] Omeprazole 20 mg PO []QD []BID Gallstone Ppx [] Ursodiol 300 mg []BID DVT Ppx [x] DVT prophylaxis per final preop visit estimated risk Estimated calculated risk: % Schedule final pre-operative office visit with surgeon, pre-operative education class, and pre-operative exercise class prior to date of surgery ATTESTATION I reviewed with the patient the details of the proposed operation. The risks benefits and options were discussed. Risks included but were not limited to bleeding, infection, damage to other surrounding organs, cardio-pulmonary complications related to anesthesia, conversion from laparoscopic to and open procedure, the need for reoperative or endoscopic therapy, the potential for prolonged mechanical ventilation, and . All questions were fully answered to the patient's satisfaction and they wish to proceed with surgical intervention. Greater than 51% of the 45 minute visit was spent as face to face encounter, counseling the patient and discussing the risks,benefits and options of surgery as well as the perioperative care plan. The patient was seen and examined independently and relevant data including a full chart rreview was performed by myself. [facility] 05-17-2023 Note Addended by: CHLOÉ HANSON on: 05/17/2023 04:23 PM Modules accepted: Orders [facility] 05-17-2023 Note Addended by: CHLOÉ HANSON on: 05/17/2023 04:23 PM Modules accepted: Orders [facility] 05-17-2023 Note Addended by: CHLOÉ HANSON on: 05/17/2023 04:23 PM Modules accepted: Orders [facility] 05-17-2023 Note Addended by: CHLOÉ HANSON on: 05/17/2023 04:23 PM Modules accepted: Orders [facility] 05-17-2023 Note Addended by: CHLOÉ HANSON on: 05/17/2023 04:23 PM Modules accepted: Orders [facility] 05-17-2023 Miscellaneous Notes Addended by: CHLOÉ HANSON on: 05/17/2023 04:23 PM Modules accepted: Orders Orders pended, pre-op checklist scanned PLAN No diagnosis found. I have recommended proceeding with the evaluation and work-up for the primary procedure as outlined below: Dr. Dunn PATIENT SUMMARY Mik Sandra 37 y.o. female with There is no height or weight on file to calculate BMI. Laparoscopic Sleeve Gastrectomy and Laparoscopic Liver Biopsy DM[] HTN[] BANDAR[] GERD[] HL[] Back pain [x] Date of Surgery: TBD NONA ELIAS, DO INITIAL TESTING RESULTS Labwork [x] CMP, TSH, Fasting Lipid Profile, Mg, Zinc, Vit B1 (whole blood), Vit B12, 25-OH Vit D, Fe, Ferritin, Folate Tobacco [] Serum Nicotine / Cotinine [] Negative [] Positive PLEASE ADD SERUM NICOTINE/COTININE WITH INITIAL LABS ON ALL LRYGB PROCEDURES EGD [] Dx: [] GERD [x] Dyspepsia [] Other Pathology [x] H. pylori [] Negative [] Positive UGI [x] [] not ordered US Abdomen [] [] not ordered BANDAR eval [] [] On CPAP / Obtain settings Hematology [] [] Hypercoagulation panel Toxicology [] [] Urine drug screen [] EtOH screen Addtional [x] [x] Hgb A1c INITIAL CONSULTATIONS CLEARANCE / MANAGEMENT Psychology [x] Dietitian [x] Cardiology [] Pulmonary [] Others [] []Heme/Onc []Psychiatry []Pain mgmt PSD [x] Physician supervised diet: []None []3 mos [x]6 mos Preop diet [x] Preop low calorie diet: []None []1 wk [x]2 wks FINAL PRE-OP TESTING RESULTS Labwork [x] [x]Pre-op CBC [x]BMP []Serum Nicotine / Cotinine EKG [x] CXR [x] POST-OP MEDICATIONS Ulcer Ppx [] Omeprazole 20 mg PO []QD []BID Gallstone Ppx [] Ursodiol 300 mg []BID DVT Ppx [x] DVT prophylaxis per final preop visit estimated risk Estimated calculated risk: % Schedule final pre-operative office visit with surgeon, pre-operative education class, and pre-operative exercise class prior to date of surgery ATTESTATION I reviewed with the patient the details of the proposed operation. The risks benefits and options were discussed. Risks included but were not limited to bleeding, infection, damage to other surrounding organs, cardio-pulmonary complications related to anesthesia, conversion from laparoscopic to and open procedure, the need for reoperative or endoscopic therapy, the potential for prolonged mechanical ventilation, and . All questions were fully answered to the patient's satisfaction and they wish to proceed with surgical intervention. Greater than 51% of the 45 minute visit was spent as face to face encounter, counseling the patient and discussing the risks,benefits and options of surgery as well as the perioperative care plan. The patient was seen and examined independently and relevant data including a full chart rreview was performed by myself. Initial New [facility] surgical patient Navigation & Financial Counseling Discussion Patient Communication: In office SURGEON: [] TRAVIS [] AD [] MP [x] TB [] LM PROCEDURE: [] LRYGB [] LSG [] LAURA-S [] LAURA [] UNDECIDED [] REV: SPECIFY: Confirmed pt wants to continue with surgical program/plan [] YES [] NO (complete program withdrawal note/process) CO-MORBIDS: [] NONE [] DM []HTN [] BANDAR []GERD [] OTH: PRIVATE PAY: [] NO []YES DATE OF INITIAL BENEFITS VERIFICATION: TRANSFER FU: [] YES [] NO PRIMARY INSURANCE: Pay[place]: [place] / Plan: [place] [employer] [place] / Product Type: Medicaid HMO / BENEFIT ON PLAN: [] NO [] YES BENEFIT MAX: [] NO [] YES -- BENEFIT MAX: $ EMPLOYER: DIET AND EXERCISE (DE) REQUIREMENT PRIMARY [] NONE []3M [x] 6M []9M [] Medicare 4 Months [] SPR (3M) []OTHER: SECONDARY INSURANCE: BENEFIT ON PLAN: [] NO [] YES BENEFIT MAX: [] NO [] YES -- BENEFIT MAX: $ AUTH REQUIRED FROM SECONDARY [] NO [] YES DIET AND EXERCISE REQUIREMENT SECONDARY [] NONE []3M [] 6M [] Medicare 4 months [] SPR (3M) []OTHER: ___ [x] Discussed with patient: Financial cost overview (document signed and pt given copy at new pt consult visit with surgeon), Initial appointments: Bariatric Nutrition Assessment (BNA) & Diet and Exercise (DE) Patient to look for yellow envelope in mail. This yellow envelope will contain orders for labs, testing and required clearances. Pt encouraged to complete early in program to prevent delays. Encourage blood work to be draw by 1st DE appointment. [x] Reviewed OOP cost, including: [] Optifast cost of approximately $130-140/week x weeks immediately prior to surgery - used to induce rapid weight loss which results in decrease in size of liver and therefore facilitates laparoscopically surgery approach. [x] Overview of inpatient admission benefits - estimated inpatient co-pays, deductibles and/or co-insurance - Estimated OOP costs form reviewed with patient, and copy given to patient at new pt visit. 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 [x] Patient reminded to arrive 15 minutes early for check in. Late arrivals may need to be rescheduled. 2) Schedule: Diet and Exercise Apt #2 only scheduled after initial BNA and DE completed, 3) Behavioral Health apt scheduled after DE started. Reviewed rational and goal of Behavioral Health appointments. 4) [x] Reinforced need to cancel any [facility] appointments 48 hours in advance. Cautioned NS/Same day cancellations may result in delay in program or program completion hold. Noted: DE series needs to be a monthly series or insurance company may require repeat of the entire series. 5) [x] Smoker/tobacco products including vaping: reviewed need for cessation before surgery clearance and life long abstinence after surgery for best outcomes. Patient navigation to surgery: [x] Explained to patient that average time from initial consult to date of surgery can be 6-8 months. - Process can take longer if there are cancelled appointments, delays in testing and/or additional clearances that needs to be completed. - Reviewed importance of patient active engagement in making and keeping appointments to keep the process moving. - Reinforced need to cancel appointments at least 48 hours in advance. Reviewed that instances of No Shows and Same Day Appointment Cancellations may result in program/surgery delay or hold. [x] Patient advised of importance of having voicemail and MyChart for office communications and lab/testing results before and after surgery. documented in this encounter [facility] 05-17-2023 Telephone encounter Note Orders pended, pre-op checklist scanned [facility] 05-17-2023 Telephone encounter Note PLAN No diagnosis found. I have recommended proceeding with the evaluation and work-up for the primary procedure as outlined below: Dr. Dunn PATIENT SUMMARY Mik Sandra 37 y.o. female with There is no height or weight on file to calculate BMI. Laparoscopic Sleeve Gastrectomy and Laparoscopic Liver Biopsy DM[] HTN[] BANDAR[] GERD[] HL[] Back pain [x] Date of Surgery: TBD NONA ELIAS, DO INITIAL TESTING RESULTS Labwork [x] CMP, TSH, Fasting Lipid Profile, Mg, Zinc, Vit B1 (whole blood), Vit B12, 25-OH Vit D, Fe, Ferritin, Folate Tobacco [x] Serum Nicotine / Cotinine [] Negative [] Positive PLEASE ADD SERUM NICOTINE/COTININE WITH INITIAL LABS ON ALL LRYGB PROCEDURES EGD [] Dx: [] GERD [x] Dyspepsia [] Other Pathology [x] H. pylori [] Negative [] Positive UGI [x] [] not ordered US Abdomen [] [] not ordered BANDAR eval [] [] On CPAP / Obtain settings Hematology [] [] Hypercoagulation panel Toxicology [x] [x] Urine drug screen [x] EtOH screen Addtional [x] [x] Hgb A1c INITIAL CONSULTATIONS CLEARANCE / MANAGEMENT Psychology [x] Dietitian [x] Cardiology [x] Pulmonary [x] Others [] []Heme/Onc []Psychiatry []Pain mgmt PSD [x] Physician supervised diet: []None []3 mos [x]6 mos Preop diet [x] Preop low calorie diet: []None []1 wk [x]2 wks FINAL PRE-OP TESTING RESULTS Labwork [x] [x]Pre-op CBC [x]BMP []Serum Nicotine / Cotinine EKG [x] CXR [x] POST-OP MEDICATIONS Ulcer Ppx [] Omeprazole 20 mg PO []QD []BID Gallstone Ppx [] Ursodiol 300 mg []BID DVT Ppx [x] DVT prophylaxis per final preop visit estimated risk Estimated calculated risk: % Schedule final pre-operative office visit with surgeon, pre-operative education class, and pre-operative exercise class prior to date of surgery ATTESTATION I reviewed with the patient the details of the proposed operation. The risks benefits and options were discussed. Risks included but were not limited to bleeding, infection, damage to other surrounding organs, cardio-pulmonary complications related to anesthesia, conversion from laparoscopic to and open procedure, the need for reoperative or endoscopic therapy, the potential for prolonged mechanical ventilation, and . All questions were fully answered to the patient's satisfaction and they wish to proceed with surgical intervention. Greater than 51% of the 45 minute visit was spent as face to face encounter, counseling the patient and discussing the risks,benefits and options of surgery as well as the perioperative care plan. The patient was seen and examined independently and relevant data including a full chart rreview was performed by myself. [facility] 05-17-2023 History of Present illness Narrative [facility] WEIGHT LOSS MANAGEMENT PROGRAM SUPERVISED DIET AND EXERCISE ROOMING: INITIAL VISIT Patient: Mik Sandra Date of : 1985 Service Date: 05/17/2023 Patient is here today to initiate physician-supervised diet and exercise as required by their insurance company prior to approval for weight loss surgery. This patient is patient for the evaluation today This is visit 1 of 6 required visits. Weight Metrics: (From Surgical Wet Loss Management) Today's Vital Signs: Non-Surgical Initial Eval Consult Date: 05/17/23 Initial Height: 5' 10.5 (179.1 cm) Initial Weight: 347 lb 3.2 oz (157 kg) Joseph Body Weight: 152 lb (68.9 kg) Initial BMI: 49.11 Initial Body Fat %: 58.93 EBW: 195 lb (From NonSurgical Weight Loss Tracker) Falls Risk Assessment Patient does take medications which affect BP or mental status Patient does have newly prescribed or changed dosage of medications within past 30 days which affect BP or mental status Patient has not fallen in the past 2 months Patient uses the following ambulatory assistive devices: NONE Patient states the presence of the following traits which increases risk of fall: NONE Patient is noton home O2 Completed by: Barbie Gibbons MA [facility] MANAGEMENT PROGRAM PHYSICIAN SUPERVISED DIET AND EXERCISE SURGICAL PREPARATORY REGIMEN PROGRESS NOTE INITIAL EVALUATION Patient: Mik Sandra Service Date: 05/17/23 Date of : 1985 Navigation Plan: Patient History/Assessment Summary: The patient is a pleasant 37 y.o. year old female, who stands Height: 5' 10.5 (179.1 cm) tall with a weight of Weight: (!) 347 lb 3.2 oz (157 kg) pounds, resulting in a BMI of Body mass index is 49.11 kg/m . kg/m2. She has been overweight for 10+ years, has tried and failed multiple previous diet attempts, and is now in the process of undergoing evaluation for surgical treatment of their obese. She is here today to initiate monthly physician supervised diet and exercise as part of their surgical preparatory regimen. History: Past Medical History: Diagnosis Date Back pain Daytime sleepiness Difficulty sleeping Fatigue Irregular menses Joint pain, hip Joint pain, knee Morbid obesity (HCC) Muscle weakness Snoring SOBOE (shortness of breath on exertion) Past Surgical History: Procedure Laterality Date SECTION, CLASSIC x2 2016,2017 Raghav DISCECTOMY (HISTORICAL) 2000 L[facility] 2002 VEIN LIGATION Right 2012 [facility] Family History Problem Relation Name Age of Onset Heart disease Mother Heart disease Father Heart disease Paternal Grandmother Obesity Paternal Grandmother Heart disease Maternal Grandmother Obesity Maternal Grandmother Social History Tobacco Use Smoking status: Former Types: Cigarettes Quit date: 2011 Years since quittin.5 Smokeless tobacco: Never Substance Use Topics Alcohol use: Not on file This patient's excess weight is causing the following co-morbid conditions at this time:Joint Pain Initial Diet & Exercise/SPR Visit Weight Metrics: Date of Initial Diet & Exercise Visit: Consult Date: 05/17/23 Initial Weight: Initial Weight: 347 lb 3.2 oz (157 kg) Initial BMI: Initial BMI: 49.11 Joseph Body Weight: Joseph Body Weight: 152 lb (68.9 kg) Excess Body Weight: EBW: 195 lb General: This patient is alert and oriented X3 Physical Examination: BP 138/81 Pulse 86 Resp 16 Ht 5' 10.5 (1.791 m) Wt (!) 347 lb 3.2 oz (157 kg) BMI 49.11 kg/m General: This patient is obese, and is in no apparent distress. Psychological: Patient is awake, alert and oriented to person, place and time Patient's mood is normal affect Current Diet This patient s current diet is: 50-80% meal plan Reviewed PAST DIET HISTORY FORM and CURRENT DIET HISTORY FORM with patient (located in Program Lead) Her diet contains adequate amounts of protein, adequate amounts of healthy fats, adequate amounts of green, leafy vegetables, and adequate amounts of fruits. Her comfort foods include: none Current Activity This patient currently does not exercise. Current Eating Behaviors This patients demonstrates the following behaviors as they relate to her eating: skipping meals She eats approximately 2 times per day. Her last meal/snack was at 6-7 PM. Plan: Diagnosis Managing: Joint Pain: stable, continue medical management, DE and plan for metabolic weight loss surgery. Advised patient that She must adhere to regular monthly visits to meet the requirements of her insurance company. Additionally, She must lose approximately one pound per month to demonstrate readiness for the changes that will be required following surgery. Physician Diet Recommendations provided to patient Patient to return for follow up in one month Current Meds Patient's Medications New Prescriptions No medications on file Previous Medications MECLIZINE (ANTIVERT) 25 MG TABLET Take 25 mg by mouth 3 times daily as needed for dizziness. NAPROXEN (NAPROSYN) 250 MG TABLET Take 500 mg by mouth Daily as needed for mild pain (1-3). PROAIR HFA 108 (90 BASE) MCG/ACT INHALER Inhale 2 puffs every 6 hours as needed. Modified Medications No medications on file Discontinued Medications No medications on file I spent a total of 45 minutes on the day of the visit in counseling, discussing lifestyle changes that are pertinent to a successful life after bariatric surgery; and reviewing the chart including available communication from the surgeon. 1.Education on meal plan,meal structure, meal preps, shopping list 2. Discussion on elements of behavioral strategies such self-monitoring, controlling and modifying the stimuli that activate eating;slowing down the eating process;goal-setting on the process,behavioral beto and reinforcement,cognitive restructuring, problem-solving,assertiveness training. 3. Physical activity - build fitness to aerobic physical activity 150-300 min/wk and strength training 2-3 times per wk will do chair exercise and swimming 4.Recommendation on do not use nicotine and alcohol before and after surgery is provided 5. For women of childbearing age recommendation to postpone until 12-18 month after surgery is provided 6.OA Is associated with obesity and weight loss is discussed as a treatment option for OA 7. Healthy lifestyle habits and their role in success after bariatric surgery discussed The patient was seen and a full chart review was performed.Clinical documentation is updated and completed. documented in this encounter [facility] 03-26-2023 Note Initial New [facility] surg ical patient Navigation & Financial Counseling Discussion Patient Communication: In office SURGEON: [] JHolden [] AD [] MP [x] TB [] LM PROCEDURE: [] LRYGB [] LSG [] LAURA-S [] LAURA [] UNDECIDED [] REV: SPECIFY: Confirmed pt wants to continue with surgical program/plan [] YES [] NO (complete program withdrawal note/process) CO-MORBIDS: [] NONE [] DM []HTN [] BANDAR []GERD [] OTH: PRIVATE PAY: [] NO []YES DATE OF INITIAL BENEFITS VERIFICATION: TRANSFER FU: [] YES [] NO PRIMARY INSURANCE: Pay[place]: [place] [employer] / Plan: [place]DM / Product Type: Medicaid HMO / BENEFIT ON PLAN: [] NO [] YES BENEFIT MAX: [] NO [] YES -- BENEFIT MAX: $ EMPLOYER: DIET AND EXERCISE (DE) REQUIREMENT PRIMARY [] NONE []3M [x] 6M []9M [] Medicare 4 Months [] SPR (3M) []OTHER: SECONDARY INSURANCE: BENEFIT ON PLAN: [] NO [] YES BENEFIT MAX: [] NO [] YES -- BENEFIT MAX: $ AUTH REQUIRED FROM SECONDARY [] NO [] YES DIET AND EXERCISE REQUIREMENT SECONDARY [] NONE []3M [] 6M [] Medicare 4 months [] SPR (3M) []OTHER: ___ [x] Discussed with patient: Financial cost overview (document signed and pt given copy at new pt consult visit with surgeon), Initial appointments: Bariatric Nutrition Assessment (BNA) & Diet and Exercise (DE) Patient to look for yellow envelope in mail. This yellow envelope will contain orders for labs, testing and required clearances. Pt encouraged to complete early in program to prevent delays. Encourage blood work to be draw by 1st DE appointment. [x] Reviewed OOP cost, including: [] Optifast cost of approximately $130-140/week x weeks immediately prior to surgery - used to induce rapid weight loss which results in decrease in size of liver and therefore facilitates laparoscopically surgery approach. [x] Overview of inpatient admission benefits - estimated inpatient co-pays, deductibles and/or co-insurance - Estimated OOP costs form reviewed with patient, and copy given to patient at new pt visit. 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 [x] Patient reminded to arrive 15 minutes early for check in. Late arrivals may need to be rescheduled. 2) Schedule: Diet and Exercise Apt #2 only scheduled after initial BNA and DE completed, 3) Behavioral Health apt scheduled after DE started. Reviewed rational and goal of Behavioral Health appointments. 4) [x] Reinforced need to cancel any WMI appointments 48 hours in advance. Cautioned NS/Same day cancellations may result in delay in program or program completion hold. Noted: DE series needs to be a monthly series or insurance company may require repeat of the entire series. 5) [x] Smoker/tobacco products including vaping: reviewed need for cessation before surgery clearance and life long abstinence after surgery for best outcomes. Patient navigation to surgery: [x] Explained to patient that average time from initial consult to date of surgery can be 6-8 months. - Process can take longer if there are cancelled appointments, delays in testing and/or additional clearances that needs to be completed. - Reviewed importance of patient active engagement in making and keeping appointments to keep the process moving. - Reinforced need to cancel appointments at least 48 hours in advance. Reviewed that instances of No Shows and Same Day Appointment Cancellations may result in program/surgery delay or hold. [x] Patient advised of importance of having voicemail and MyChart for office communications and lab/testing results before and after surgery. [facility] 03-26-2023 Note BARIATRIC AND METABO LIC SURGERY [facility] INITIAL EVALUATION - HISTORY AND PHYSICAL 03/20/23 PATIENT: Mik Sandra DATE OF : 1985 ------ HISTORY OF PRESENT ILLNESS Chief Complaint: Morbid Obesity and associated comorbid conditions. Mik Sandra is a 37 y.o. female with morbid obesity and associated comorbid conditions who [facility] for evaluation for bariatric surgery. The patient stands tall with a weight of , and has a BMI of There is no height or weight on file to calculate BMI.. The patient has failed multiple attempts at non-surgical weight loss, and is now seeking surgical intervention to promote permanent and consistent weight loss. The patient suffers from multiple co-morbidities as a result of morbid obesity as outlined in the past medical history. The patient denies a history of myocardia infarction, deep vein thrombosis, pulmonary embolism, renal failure, hepatic failure, stroke, and seizure. She does not smoke, and does not drink alcohol. Review of Systems PAST HISTORIES Past Medical History: Diagnosis Date Morbid obesity (CMS/HCC) (HCC) No past surgical history on file. No family history on file. Social History Tobacco Use Smoking status: Not on file Smokeless tobacco: Not on file Substance Use Topics Alcohol use: Not on file Patient's Medications No medications on file Not on File PHYSICAL EXAM There were no vitals taken for this visit. General: This patient is awake, alert, and oriented, with normal affect and is in no apparent distress. Cardiac: Regular rate and rhythm without evidence of murmur. Respiratory: Clear to auscultation bilaterally with normal effort. Abdomen: Obese, soft, non-tender, non-distended without masses/ No evidence of abdominal hernia / Incisions consistent with previous surgeries. Head and Neck: Obese, normocephalic and atraumatic/soft and supple, no lymphadenopathy or obvious bruits. No thyroidmegaly. Extremities: No cyanosis, clubbing or edema/ No calf tenderness/No restrictions of movement, is ambulatory without assistance. Neurological: Intact x 4 extremities, normal sensation, no focal deficits notes. Skin: Skin cool, warm and dry. No rashes or lesions noted. Rectal: Deferred LABORATORY STUDIES Laboratory Studies: No results for input(s): NA, K, CL, CO2, BUN, CREATININE, GLUCOSE, CALCIUM in the last 72 hours. No results for input(s): WBC, RBC, HGB, HCT, MCV, MCH, MCHC, RDW, PLT, MPV in the last 72 hours. No results for input(s): ALKPHOS, ALT, AST, PROT, BILITOT, BILIDIR, LIPASE in the last 72 hours. No lab exists for component: LABALBU ASSESSMENT Based on today's evaluation, the patient is a candidate for surgery. She chose the procedure as documented below in the plan. In anticipation of weight reductive surgery now or in the future, we spent a great deal of time discussing the risks and benefits of , including but not limited to injury to intra-abdominal organs, breakdown of the gastric staple line, the need for re-operative therapy, prolonged hospitalization, mechanical ventilation, and . We discussed the possibility of bleeding, the need for blood transfusions, blood clots, hospital-acquired and intra-abdominal infection, anastomotic stricture, and worsening GERD. And we discussed the need for post-operative visit compliance, behavior modifications and diet changes, protein and vitamin supplementation, as well as routine scheduled and dedicated exercise. We discussed the potential weight loss benefit of approximately 60-70% of her excess body weight at 12-18 months post-op, as well as the possibility of insufficient weight loss or weight gain after 2 years post-operative time. Upon completion of all required pre-operative testing we will submit for insurance pre-authorization. If the patient has chosen or is strongly considering gastric bypass we discussed that in the event that gastric bypass could not be safely performed, such as extensive scar tissue, patient intolerance of anesthesia, excessive truncal obesity etc, the laparoscopic sleeve gastrectomy was discussed including the risks and benefits as listed above. The patient did agree to laparoscopic sleeve gastrectomy as an alternative procedure if the laparoscopic michael en y bypass could not be performed. PLAN No diagnosis found. I have recommended proceeding with the evaluation and work-up for the primary procedure as outlined below: Dr. Dunn PATIENT SUMMARY Mik Sandra 37 y.o. female with There is no height or weight on file to calculate BMI. Laparoscopic Sleeve Gastrectomy and Laparoscopic Liver Biopsy DM[] HTN[] BANDAR[] GERD[] HL[] Back pain [x] Date of Surgery: TBD NONA ELIAS, DO INITIAL TESTING RESULTS Labwork [x] CMP, TSH, Fastin (more content not included)... [facility] 03-26-2023 Telephone encounter Note Initial New [facility] surgical patient Navigation & Financial Counseling Discussion Patient Communication: In office SURGEON: [] TRAVIS [] AD [] MP [x] TB [] LM PROCEDURE: [] LRYGB [] LSG [] LAURA-S [] LAURA [] UNDECIDED [] REV: SPECIFY: Confirmed pt wants to continue with surgical program/plan [] YES [] NO (complete program withdrawal note/process) CO-MORBIDS: [] NONE [] DM []HTN [] BANDAR []GERD [] OTH: PRIVATE PAY: [] NO []YES DATE OF INITIAL BENEFITS VERIFICATION: TRANSFER FU: [] YES [] NO PRIMARY INSURANCE: Pay[place]: [place] / Plan: [place] ODM / Product Type: Medicaid HMO / BENEFIT ON PLAN: [] NO [] YES BENEFIT MAX: [] NO [] YES -- BENEFIT MAX: $ EMPLOYER: DIET AND EXERCISE (DE) REQUIREMENT PRIMARY [] NONE []3M [x] 6M []9M [] Medicare 4 Months [] SPR (3M) []OTHER: SECONDARY INSURANCE: BENEFIT ON PLAN: [] NO [] YES BENEFIT MAX: [] NO [] YES -- BENEFIT MAX: $ AUTH REQUIRED FROM SECONDARY [] NO [] YES DIET AND EXERCISE REQUIREMENT SECONDARY [] NONE []3M [] 6M [] Medicare 4 months [] SPR (3M) []OTHER: ___ [x] Discussed with patient: Financial cost overview (document signed and pt given copy at new pt consult visit with surgeon), Initial appointments: Bariatric Nutrition Assessment (BNA) & Diet and Exercise (DE) Patient to look for yellow envelope in mail. This yellow envelope will contain orders for labs, testing and required clearances. Pt encouraged to complete early in program to prevent delays. Encourage blood work to be draw by 1st DE appointment. [x] Reviewed OOP cost, including: [] Optifast cost of approximately $130-140/week x weeks immediately prior to surgery - used to induce rapid weight loss which results in decrease in size of liver and therefore facilitates laparoscopically surgery approach. [x] Overview of inpatient admission benefits - estimated inpatient co-pays, deductibles and/or co-insurance - Estimated OOP costs form reviewed with patient, and copy given to patient at new pt visit. 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 [x] Patient reminded to arrive 15 minutes early for check in. Late arrivals may need to be rescheduled. 2) Schedule: Diet and Exercise Apt #2 only scheduled after initial BNA and DE completed, 3) Behavioral Health apt scheduled after DE started. Reviewed rational and goal of Behavioral Health appointments. 4) [x] Reinforced need to cancel any WMI appointments 48 hours in advance. Cautioned NS/Same day cancellations may result in delay in program or program completion hold. Noted: DE series needs to be a monthly series or insurance company may require repeat of the entire series. 5) [x] Smoker/tobacco products including vaping: reviewed need for cessation before surgery clearance and life long abstinence after surgery for best outcomes. Patient navigation to surgery: [x] Explained to patient that average time from initial consult to date of surgery can be 6-8 months. - Process can take longer if there are cancelled appointments, delays in testing and/or additional clearances that needs to be completed. - Reviewed importance of patient active engagement in making and keeping appointments to keep the process moving. - Reinforced need to cancel appointments at least 48 hours in advance. Reviewed that instances of No Shows and Same Day Appointment Cancellations may result in program/surgery delay or hold. [x] Patient advised of importance of having voicemail and MyChart for office communications and lab/testing results before and after surgery. [facility] 03-26-2023 History of Present illness Narrative BARIATRIC AND METABOLIC SURGERY [facility] INITIAL EVALUATION - HISTORY AND PHYSICAL 03/20/23 PATIENT: Mik Sandra DATE OF : 1985 HISTORY OF PRESENT ILLNESS Chief Complaint: Morbid Obesity and associated comorbid conditions. Mik Sandra is a 37 y.o. female with morbid obesity and associated comorbid conditions who [facility] for evaluation for bariatric surgery. The patient stands tall with a weight of , and has a BMI of There is no height or weight on file to calculate BMI.. The patient has failed multiple attempts at non-surgical weight loss, and is now seeking surgical intervention to promote permanent and consistent weight loss. The patient suffers from multiple co-morbidities as a result of morbid obesity as outlined in the past medical history. The patient denies a history of myocardia infarction, deep vein thrombosis, pulmonary embolism, renal failure, hepatic failure, stroke, and seizure. She does not smoke, and does not drink alcohol. Review of Systems PAST HISTORIES Past Medical History: Diagnosis Date Morbid obesity (CMS/HCC) (HCC) No past surgical history on file. No family history on file. Social History Tobacco Use Smoking status: Not on file Smokeless tobacco: Not on file Substance Use Topics Alcohol use: Not on file Patient's Medications No medications on file Not on File PHYSICAL EXAM There were no vitals taken for this visit. General: This patient is awake, alert, and oriented, with normal affect and is in no apparent distress. Cardiac: Regular rate and rhythm without evidence of murmur. Respiratory: Clear to auscultation bilaterally with normal effort. Abdomen: Obese, soft, non-tender, non-distended without masses/ No evidence of abdominal hernia / Incisions consistent with previous surgeries. Head and Neck: Obese, normocephalic and atraumatic/soft and supple, no lymphadenopathy or obvious bruits. No thyroidmegaly. Extremities: No cyanosis, clubbing or edema/ No calf tenderness/No restrictions of movement, is ambulatory without assistance. Neurological: Intact x 4 extremities, normal sensation, no focal deficits notes. Skin: Skin cool, warm and dry. No rashes or lesions noted. Rectal: Deferred LABORATORY STUDIES Laboratory Studies: No results for input(s): NA, K, CL, CO2, BUN, CREATININE, GLUCOSE, CALCIUM in the last 72 hours. No results for input(s): WBC, RBC, HGB, HCT, MCV, MCH, MCHC, RDW, PLT, MPV in the last 72 hours. No results for input(s): ALKPHOS, ALT, AST, PROT, BILITOT, BILIDIR, LIPASE in the last 72 hours. No lab exists for component: LABALBU ASSESSMENT Based on today's evaluation, the patient is a candidate for surgery. She chose the procedure as documented below in the plan. In anticipation of weight reductive surgery now or in the future, we spent a great deal of time discussing the risks and benefits of , including but not limited to injury to intra-abdominal organs, breakdown of the gastric staple line, the need for re-operative therapy, prolonged hospitalization, mechanical ventilation, and . We discussed the possibility of bleeding, the need for blood transfusions, blood clots, hospital-acquired and intra-abdominal infection, anastomotic stricture, and worsening GERD. And we discussed the need for post-operative visit compliance, behavior modifications and diet changes, protein and vitamin supplementation, as well as routine scheduled and dedicated exercise. We discussed the potential weight loss benefit of approximately 60-70% of her excess body weight at 12-18 months post-op, as well as the possibility of insufficient weight loss or weight gain after 2 years post-operative time. Upon completion of all required pre-operative testing we will submit for insurance pre-authorization. If the patient has chosen or is strongly considering gastric bypass we discussed that in the event that gastric bypass could not be safely performed, such as extensive scar tissue, patient intolerance of anesthesia, excessive truncal obesity etc, the laparoscopic sleeve gastrectomy was discussed including the risks and benefits as listed above. The patient did agree to laparoscopic sleeve gastrectomy as an alternative procedure if the laparoscopic michael en y bypass could not be performed. PLAN No diagnosis found. I have recommended proceeding with the evaluation and work-up for the primary procedure as outlined below: Dr. Dunn PATIENT SUMMARY Mik Sandra 37 y.o. female with There is no height or weight on file to calculate BMI. Laparoscopic Sleeve Gastrectomy and Laparoscopic Liver Biopsy DM[] HTN[] BANDAR[] GERD[] HL[] Back pain [x] Date of Surgery: TBD NONA ELIAS, DO INITIAL TESTING RESULTS Labwork [x] CMP, TSH, Fasting Lipid Profile, Mg, Zinc, Vit B1 (whole blood), Vit B12, 25-OH Vit D, Fe, Ferritin, Folate Tobacco [] Serum Nicotine / Cotinine [] Negative [] Positive PLEASE ADD SERUM NICOTINE/COTININE WITH INITIAL LABS ON ALL LRYGB PROCEDURES EGD [] Dx: [] GERD [x] Dyspepsia [] Other Pathology [x] H. pylori [] Negative [] Positive UGI [x] [] not ordered US Abdomen [] [] not ordered BANDAR eval [] [] On CPAP / Obtain settings Hematology [] [] Hypercoagulation panel Toxicology [] [] Urine drug screen [] EtOH screen Addtional [x] [x] Hgb A1c INITIAL CONSULTATIONS CLEARANCE / MANAGEMENT Psychology [x] Dietitian [x] Cardiology [] Pulmonary [] Others [] []Heme/Onc []Psychiatry []Pain mgmt PSD [x] Physician supervised diet: []None []3 mos [x]6 mos Preop diet [x] Preop low calorie diet: []None []1 wk [x]2 wks FINAL PRE-OP TESTING RESULTS Labwork [x] [x]Pre-op CBC [x]BMP []Serum Nicotine / Cotinine EKG [x] CXR [x] POST-OP MEDICATIONS Ulcer Ppx [] Omeprazole 20 mg PO []QD []BID Gallstone Ppx [] Ursodiol 300 mg []BID DVT Ppx [x] DVT prophylaxis per final preop visit estimated risk Estimated calculated risk: % Schedule final pre-operative office visit with surgeon, pre-operative education class, and pre-operative exercise class prior to date of surgery ATTESTATION I reviewed with the patient the details of the proposed operation. The risks benefits and options were discussed. Risks included but were not limited to bleeding, infection, damage to other surrounding organs, cardio-pulmonary complications related to anesthesia, conversion from laparoscopic to and open procedure, the need for reoperative or endoscopic therapy, the potential for prolonged mechanical ventilation, and . All questions were fully answered to the patient's satisfaction and they wish to proceed with surgical intervention. Greater than 51% of the 45 minute visit was spent as face to face encounter, counseling the patient and discussing the risks,benefits and options of surgery as well as the perioperative care plan. The patient was seen and examined independently and relevant data including a full chart rreview was performed by myself. Patient Care Team: Nona Elias DO as PCP - General (Family Medicine) Parrish Dunn MD as Surgeon (General Surgery) [facility] [place] SURGICAL WEIGHT LOSS MANAGEMENT PROGRAM Rooming Note - INITIAL CONSULTATION Patient: Mik Sandra Date of : 1985 Service Date: 03/26/2023 Patient is here today to discuss the possibility of weight loss surgery. This patient is alone for the evaluation today she is interested in discussing weight loss surgery. Physician Supervised D/E: 6 Weight Metrics: Vitals BP: (!) 147/84 Heart Rate: 89 Resp: 16 Temp: 36.2 C (97.1 F) Baseline Measures Initial Height: 5' 10.5 (179.1 cm) Initial Weight: 342 lb 3.2 oz (155 kg) Initial BMI: 48.5 Initial EBW: 189 lb 11.2 oz (86 kg) Initial Waist Cricumference: 56 Initial Neck Circumference: 19.25 Falls Risk Assessment Patient does nottake medications which affect BP or mental status Patient does not have newly prescribed or changed dosage of medications within past 30 days which affect BP or mental status Patient has not fallen in the past 2 months Patient does not demonstrate unsteady gait Patient uses the following ambulatory assistive devices: none Patient is low risk for falls. If high or moderate risk, patient instructed not to ambulate independently in the Center, and cord for call light placed within reach of patient. History of Difficult Intubation: No Patient is not on home O2 Completed by: Joelle Avendano LPN documented in this encounter [facility] 03-26-2023 History of Present illness Narrative BARIATRIC AND METABOLIC SURGERY [facility] INITIAL EVALUATION - HISTORY AND PHYSICAL 03/20/23 PATIENT: Mik Sandra DATE OF : 1985 HISTORY OF PRESENT ILLNESS Chief Complaint: Morbid Obesity and associated comorbid conditions. Mik Sandra is a 37 y.o. female with morbid obesity and associated comorbid conditions who [facility] for bariatric surgery. The patient stands tall with a weight of , and has a BMI of There is no height or weight on file to calculate BMI.. The patient has failed multiple attempts at non-surgical weight loss, and is now seeking surgical intervention to promote permanent and consistent weight loss. The patient suffers from multiple co-morbidities as a result of morbid obesity as outlined in the past medical history. The patient denies a history of myocardia infarction, deep vein thrombosis, pulmonary embolism, renal failure, hepatic failure, stroke, and seizure. She does not smoke, and does not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 Primary Pain in joint, pelvic region and thigh BMI 50.0-59.9, adult ([facility]) Class 3 severe obesity with serious comorbidity and body mass index (BMI) of 50.0 to 59.9 in adult, unspecified obesity type (HCC) documented in this encounter [facility] note* Diagnosis BANDAR (obstructive sleep apnea)- Primary Obstructive sleep apnea (adult) (pediatric) documented in this encounter [facility] note* Diagnosis BANDAR (obstructive sleep apnea)- Primary Obstructive sleep apnea (adult) (pediatric) Nocturnal hypoxia Encounter for pre-operative respiratory clearance Morbid obesity with BMI of 50.0-59.9, adult ([facility]) [facility] instructions No data available for this section [facility] Progress note No data available for this section [facility] Reason for referral (narrative)* Diagnostic Procedure Only (Routine) - Pending Review Specialty Diagnoses / Procedures Referred By Contac t Referred To Contact XR IMAGING Diagnoses Pain in joint, multiple sites Procedures XR SACROILIAC JOINTS 2V AP PELVIS/FERGUESON RADIOLOGIC EXAMINATION SACROILIAC JNTS <3 VIEWS Tracie Gould MD [address] [place] [address] Xr Imaging Referral ID Status Reason Start Date Expiration Date Visits Requested Visits Authorized [id number] Pending Review Auto-Generat ed Referral 01/16/2023 02/15/2024 1 1 * Diagnostic Procedure Only (Routine) - Pending Review Specialty Diagnoses / Procedures Referred By Contac t Referred To Contact XR IMAGING Diagnoses Pain in joint, multiple sites Procedures XR HAND GENERAL 3V PA/LAT/OBL RIGHT RADEX HAND MINIMUM 3 VIEWS Tracie Gould MD [address] [place] [address] Xr Imaging Referral ID Status Reason Start Date Expiration Date Visits Requested Visits Authorized [id number] Pending Review Auto-Generat ed Referral 01/16/2023 02/15/2024 1 1 * Diagnostic Procedure Only (Routine) - Pending Review Specialty Diagnoses / Procedures Referred By Contac t Referred To Contact XR IMAGING Diagnoses Pain in joint, multiple sites Procedures XR HAND GENERAL 3V PA/LAT/OBL LEFT RADEX HAND MINIMUM 3 VIEWS Tracie Gould MD [address] [place] [address] Xr Imaging Referral ID Status Reason Start Date Expiration Date Visits Requested Visits Authorized [id number] Pending Review Auto-Generat ed Referral 01/16/2023 02/15/2024 1 1 [facility] for referral (narrative)* Consultation (Routine) - Pending Review Specialty Diagnoses / Procedures Referred By Contac t Referred To Contact Pulmonary Disease / Pulmonology Diagnoses Daytime sleepiness Morbid obesity with BMI of 45.0-49.9, adult (HCC) Procedures VT OFFICE/OUTPATIENT NEW HIGH MDM 60-74 MINUTES Lona Chambers, CRISTELA [address] [place] [address] [facility] [address] [place] [address] Referral ID Status Reason Start Date Expiration Date Visits Requested Visits Authorized [id number] Pending Review Specialty Services Required 05/20/2023 05/19/2024 1 1 * Consultation (Elective) - Pending Review Specialty Diagnoses / Procedures Referred By Contac t Referred To Contact Cardiology Diagnoses Morbid obesity with BMI of 45.0-49.9, adult (HCC) Procedures VT OFFICE/OUTPATIENT NEW HIGH MDM 60-74 MINUTES Lona Chambers, CRISTELA [address] [place] [address] [facility] [address] [place] [address] Referral ID Status Reason Start Date Expiration Date Visits Requested Visits Authorized [id number] Pending Review Specialty Services Required 05/20/2023 05/19/2024 [address] [facility] Health Summary Purpose Family History No Family History Records FoundNo Family History Records FoundNo Family History Records Found No data available for this section No data available for this section No Family History Records FoundNo Family History Records Found Advance Directives No Advanced Directives Records FoundNo Advanced Directives Records FoundNo Advanced Directives Records FoundNo Advanced Directives Records FoundNo Advanced Directives Records Found Reason for Referral Specialty Diagnoses / Procedures Referred By Contac t Referred To Contact Sleep Medicine Diagnoses BANDAR (obstructive sleep apnea) Procedures Polysomnography Aimee Mendoza, REGIONAL PROGRAM MANAGER - MECHANICAL CAR CHECKER [address] [place] [address] Referral ID Status Reason Start Date Expiration Date V isits Requested Visits Authorized [id number] Pending Review 08/05/2023 02/01/2024 1 1 Additional Source Comments INFORMATION SOURCE (unrecogn ized section and content) DATE CREATED AUTHOR AUTHOR'S ORGANIZ ATION 03/08/2023 [facility] DATE CREATED AUTHOR AUTHOR'S ORGANIZ ATION 06/14/2023 [facility] DATE CREATED AUTHOR AUTHOR'S ORGANIZ ATION 10/30/2023 [facility] DATE CREATED AUTHOR AUTHOR'S ORGANIZ ATION 11/04/2023 [facility] ([place]) Care Team (unrecognized sect ion and content) Care Team Personnel Name: ANTHONY LACKEY DO Address: Address: [address] [place] [address] [address] [facility] [address]- [place] Name: NONA ELIAS DO Position: P4 Physician - Primary Care Member Role: Primary Care Physician Address: Address: [address] [place] [address]- Name: JACKI SAMUELS DO Address: Address: [address] [place] [address] [place] [address]- Name: NETTA COCHRAN CNP Address: Address: [facility] [address] [place] [address]- Name: NAHOMI GARCIA DO Position: OB Physician Address: Address: [address] [place] [address]- Name: MD BROOKE ETIENNE Address: Address: [facility] [address] [place], [place] [address] Care Team Related Persons Name: HUYEN SALDANA Address: [facility] Address: Home [address] [place], [place] [id number] Address: Temporary [address] [place], [place] [id number] Name: MONICA SALDANA Name: GIANLUCA COYLE Care Team Personnel Name: ANTHONY LACKEY DO Member Role: Orthopaedist Address: Address: [address] [place] [address] [address] [facility] [address]- [place] Name: NONA ELIAS DO Position: P4 Physician - Primary Care Member Role: Primary Care Physician Address: Address: [address] [place] [id number] [place] [address] Name: JACKI SAMUELS DO Member Role: Orthopaedist Address: Address: [address] [place] [address] [address] [place], [place] [address] Name: NETTA COCHRAN CNP Member Role: Pain Management Address: Address: [facility] [address] [place] [address]- Name: NAHOMI GARCIA DO Position: OB Physician Member Role: OBGYN Address: Address: [address] [facility] [address] [place] [address]- Name: MD BROOKE ETIENNE Member Role: Pain Management Address: Address: [facility] [address] [facility] [address] [place], [place] [address] Care Team Related Persons Name: HUYEN SALDANA Address: [facility] Address: Home [address] [place] [id number] Address: Temporary [address] [place], [place] [id number] Name: MONICA SALDANA Name: GIANLUCA COYLE Source Comments (unrecognize d section and content) In the event this informatio n is protected by the Federal Confidentiality of Alcohol and Drug Abuse Patient Records regulations: The Federal rules restrict any use of the information to criminally investigate or prosecute any alcohol or drug abuse patient.[facility] the event this information is protected by the Federal Confidentiality of Alcohol and Drug Abuse Patient Records regulations: The Federal rules restrict any use of the information to criminally investigate or prosecute any alcohol or drug abuse patient.[facility] the event this information is protected by the Federal Confidentiality of Alcohol and Drug Abuse Patient Records regulations: The Federal rules restrict any use of the information to criminally investigate or prosecute any alcohol or drug abuse patient.[facility] Reason for Visit (unrecogniz ed section and content) Reason Comments Joint Pain Reason Comments Surgical Consult NEW Reason Comments Weight Loss D/E 1/ Reason Onset Date Comments Financial File 03/26/2023 Financial File 2 023 Surgery Scheduling 03/26/2023 Initial Sched uling - Orders Pended Reason Onset Date Comments Financial File 03/26/2023 Financial File 2 023 Surgery Scheduling 03/26/2023 Initial Sched uling - Orders Pended Reason Comments Nutrition Counseling BNA initial Reason Comments Weight Loss D/E 2 of 6 Reason Onset Date Comments Abnormal Lab 06/05/2023 Low vitamin D Reason Comments Joint Pain Lower back, right hi p Reason Comments Weight Loss D/E 3 of 6 Reason Comments New Patient Evaluation for baria tric clearance Reason Comments Weight Loss D/E 5 of 6 Reason Comments Weight Loss D/E 4 of 6 Reason Comments Weight Loss D/E final 6 of 6 Reason Onset Date Comments Results 10/24/2023 Reason Comments Follow-up After PSG Care Teams (unrecognized sec tion and content) Automotive Design Layout Drafter Relationship Specialty Start Date End Date Nona Elias DO [address] [place] [address] PCP - General Family Medicine 12/12/22 Automotive Design Layout Drafter Relationship Specialty Start Date End Date Nona Elias DO [address] [place] [address] PCP - General Family Medicine 02/06/23 Parrish Dunn MD [address] [place] [address]21 Surgeon General Surgery 02/08/23 [employer] Layout Drafter Relationship Specialty Start Date End Date Nona Elias DO [address] [place] [address] 42085 PCP - General Family Medicine 02/06/23 Parrish Dunn MD [address] [place] [address] 18646 Surgeon General Surgery 02/08/23 [employer]otive Design Layout Drafter Relationship Specialty Start Date End Date Nona Elias DO [address] [place] [address] 35572 PCP - General Family Medicine 02/06/23 Parrish Dunn MD [address] [place] [address] 19045 Surgeon General Surgery 02/08/23 Automotive Design Layout Drafter Relationship Specialty Start Date End Date Nona Elias DO [address] [place] [address] 15345 PCP - General Family Medicine 02/06/23 Parrish Dunn MD [address] [place] [address] 50707 Surgeon General Surgery 02/08/23 Automotive Design Layout Drafter Relationship Specialty Start Date End Date Nona Elias DO [address] [place] [address] 68868 PCP - General Family Medicine 02/06/23 Parrish Dunn MD [address] [place] [address] 44366 Surgeon General Surgery 02/08/23 Automotive Design Layout Drafter Relationship Specialty Start Date End Date Nona Elias DO [address] [place] [address] 38692 PCP - General Family Medicine 02/06/23 Parrish Dunn MD [address] [place] [address] 50473 Surgeon General Surgery 02/08/23 Automotive Design Layout Drafter Relationship Specialty Start Date End Date Nona Elias DO [address] [place] [address] 08334 PCP - General Family Medicine 02/06/23 Parrish Dunn MD [address] [place] [address] 63670 Surgeon General Surgery 02/08/23 Automotive Design Layout Drafter Relationship Specialty Start Date End Date Nona Elias DO [address] [place] [address] 21128 PCP - General Family Medicine 02/06/23 Parrish Dunn MD [address] [place] [address] 20092 Surgeon General Surgery 02/08/23 Automotive Design Layout Drafter Relationship Specialty Start Date End Date Nona Elias DO [address] [place] [address] 02455 PCP - General Family Medicine 02/06/23 Parrish Dunn MD [address] [place] [address] 11157 Surgeon General Surgery 02/08/23 Automotive Design Layout Drafter Relationship Specialty Start Date End Date Nona Elias DO [address] [place] [address] PCP - General Family Medicine 02/06/23 Parrish Dunn MD [address] [place] [address] 29324 Surgeon General Surgery 02/08/23 Automotive Design Layout Drafter Relationship Specialty Start Date End Date Nona Elias DO [address] [place] [address] 58338 PCP - General Family Medicine 12/12/22 Automotive Design Layout Drafter Relationship Specialty Start Date End Date Nona Elias DO [address] [place] [address] 59285 PCP - General Family Medicine 02/06/23 Parrish Dunn MD [address] [place] [address] 12841 Surgeon General Surgery 02/08/23 Automotive Design Layout Drafter Relationship Specialty Start Date End Date Nona Elias DO [address] [place] [address] 50028 PCP - General Family Medicine 02/06/23 Parrish Dunn MD [address] [place] [address] 42639 Surgeon General Surgery 02/08/23 Automotive Design Layout Drafter Relationship Specialty Start Date End Date Nona Elias DO [address] [place] [address] 42709 PCP - General Family Medicine 02/06/23 Parrish Dunn MD [address] [place] [address] [address] [place] [address] Surgeon General Surgery 02/08/23 Automotive Design Layout Drafter Relationship Specialty Start Date End Date Nona Elias DO [address] [place] [address] PCP - General Family Medicine 02/06/23 Parrish Dunn MD [address] [place] [address] [address] [place] [address] Surgeon General Surgery 02/08/23 Automotive Design Layout Drafter Relationship Specialty Start Date End Date Nona Elias DO [address] [place] [address] 19895 PCP - General Family Medicine 02/06/23 Parrish Dunn MD [address] [place] [address] [address] [place] [address] Surgeon General Surgery 02/08/23 Automotive Design Layout Drafter Relationship Specialty Start Date End Date Nona Elias DO [address] [place] [address] 82756 PCP - General Family Medicine 02/06/23 Parrish Dunn MD [address] [place] [address] [address] [place] [address] Surgeon General Surgery 02/08/23 Automotive Design Layout Drafter Relationship Specialty Start Date End Date Nona Elias DO [address] [place] [address] 06235 PCP - General Family Medicine 02/06/23 Parrish Dunn MD [address] [place] [address] [address] [place] [address] Surgeon General Surgery 02/08/23 Automotive Design Layout Drafter Relationship Specialty Start Date End Date Nona Elias DO [address] [place] [address] PCP - General Family Medicine 02/06/23 Parrish Dunn MD [address] [place] [address] [address] [place] [address] Surgeon General Surgery 02/08/23 FOR RECORDS PERTAINING TO PATIENTS WHO ARE OR HAVE BEEN ENROLLED IN A CHEMICAL DEPENDENCY/SUBSTANCEABUSE PROGRAM, SOME INFORMATION MAY BE OMITTED. This clinical summary was aggregated from multiple sources. Caution should be exercised in using it in the provision of clinical care. This summary normalizes information from multiple sources, and as a consequence, information in this document may materially change the coding, format and clinical context of patient data. In addition, data may be omitted in some cases. CLINICAL DECISIONS SHOULD BE BASED ON THE PRIMARY CLINICAL RECORDS. [employer] provides no warranty or guarantee of the accuracy or completeness of information in this document.
== END | disposition home or self-care (01) ==
PROVIDERS: PCP Family Medicine; Visit Provider Emergency Medicine
DX: R55 Syncope and collapse (principal)

== ENCOUNTER 2024-03-23 09:28 | Day surgery (SDC) | payer MEDICAID, SELFPAY ==
[2024-03-23] VITALS (7 sets, daily range): BP systolic 109–149; BP diastolic 56–88; PULSE 68–88; RESP 16–20; TEMP 36.1–36.9; O2SAT 93–95; BMI 49.1
[2024-03-23 10:12] LABS: Internal QC Validated? YES +Cl - CLEAR BKGD
[2024-03-23 10:13] LABS: Pregnancy, Urine Negative Negative; Record Kit Lot#,Urine Preg HCG0000718089
--- NOTE | 2024-03-23 10:20 | RAD_ITS ---
PROCEDURE: Right hip injection. DATE OF EXAMINATION: March 23, 2024. INDICATION: Female, 38 years old. FLUOROSCOPY TIME (if supplied): (4.7 seconds) minutes/seconds. 1.73 mGy. One image was submitted. RAD/Fluoro Guided Needle Placement IMPRESSION: Intraoperative fluoroscopic services provided for right hip injection. Electronically Signed: George Alvarado MD at 15:15 EDT ,
[2024-03-23] MEDS: Lactated Ringers 1,000 ML 15 ML IV (10:30)
[2024-03-23 10:51] LABS: Bedside Glucose 145 mg/dL (74-106)
[2024-03-23] MEDS: Lidocaine 1% (5 ml sdv) 5 ML Vial (10:59)
[2024-03-23] MEDS: MethylPREDNISolone Acetate 80 MG/ML Vial (11:00)
--- NOTE | 2024-03-23 11:08 | PCM.OPRPT ---
Report of Operation Date of Procedure: 03/23/24 Description of Surgical Findings:: PREOPERATIVE DIAGNOSIS: Osteoarthritis of the right hip POSTOPERATIVE DIAGNOSIS: Osteoarthritis of the right hip PROCEDURE PERFORMED: Right hip intraarticular steroid injection under fluoroscopy guidance. ANESTHESIA: MAC. BLOOD LOSS: Minimal. COMPLICATIONS: None. DESCRIPTION OF PROCEDURE: History and physical of today was reviewed. Risks and benefits of the procedure were explained. The patient understood and agreed to proceed. Informed consent was obtained. IV inserted per routine protocol. The patient was taken to the operating room and placed in the supine position. The right hip area was prepped and draped in a sterile fashion using iodine x3. Under fluoroscopy guidance on AP view, the right hip joint was visualized. The skin and subcutaneous tissue was anesthetized with approximately 3 mL of 1% lidocaine using a 25-gauge regular needle approximately 3 cm cephalad to the right greater trochanter. Under direct visualization with fluoroscopy on an AP view, using a 22-gauge 5-inch spinal needle, the needle was advanced via the skin using the lateral approach. The tip of the needle was maneuvered and directed towards the superiormost aspect of the hip joint. Once the tip of the needle was at the vicinity of the joint, after negative aspiration for blood and positive aspiration of synovial fluid, a total of 1 mL of contrast was injected to confirm correct placement of the needle as well as halo spread around the hip joint. After repeated negative aspiration for blood and confirmation on AP as well as oblique view, a total of 10 mL of preservative-free 0.25% Marcaine with 80 mg of Depo-Medrol was injected easily. The needle was then removed intact. The patient experienced no sign or symptoms of intrathecal or intravascular injection. The patient experienced no paresthesia. The procedure was completed without any apparent difficulty or any complications. The patient appeared to tolerate it well. ASSESSMENT AND PLAN: This is a 38-year-old female with osteoarthritis of the right hip status post right hip intra-articular steroid injection under fluoroscopic guidance, patient will continue her current medications, patient will follow in approximately 2 weeks for reevaluation.
== END 2024-03-23 12:16 | disposition home or self-care (01) ==
LOC: SDC 09:29 → AC 09:53
PROVIDERS: Anesthesiology; PCP Family Medicine; Referring Provider Anesthesiology Pain Medicine; Visit Provider Anesthesiology Pain Medicine
PROC: 3E0U3GC Introduction of Other Therapeutic Substance into Joints, Percutaneous Approach (ICD-10-PCS; CPT 20610; principal; 2024-03-23 11:15)
DX: M16.11 Unilateral primary osteoarthritis, right hip (principal); Z68.42 Body mass index [BMI] 45.0-49.9, adult; E11.9 Type 2 diabetes mellitus without complications; I10 Essential (primary) hypertension; E66.9 Obesity, unspecified; Z79.85 Long-term (current) use of injectable non-insulin antidiabetic drugs; Z79.84 Long term (current) use of oral hypoglycemic drugs; Z79.890 Hormone replacement therapy; Z79.899 Other long term (current) drug therapy
CPT/HCPCS: 20610; 01991; 76000; 77002; 81025; 82962; J7120

== ENCOUNTER 2024-07-29 00:55 | Emergency (ER) | payer MEDICAID, SELFPAY ==
[2024-07-29 00:56] VITALS: BP 145/99; PULSE 103; RESP 18; TEMP 36.9; O2SAT 94; BMI 50.4
--- NOTE | 2024-07-29 02:34 | ED.VIS.LOWEX ---
HPI History of Present Illness HPI Narrative: Patient presents with bleeding from her right ankle that began tonight. Patient states she scratched her ankle and there was a varicose vein where she scratched her ankle. Patient states this opened up and caused significant bleeding. Patient states that she soaked 3 towels and then called EMS. Patient denies any other trauma or injury. Patient is unsure of her last tetanus. Patient denies any lightheadedness or dizziness. Patient denies any fevers or chills. Chief Complaint: Wound Onset/Context/Timing Onset: Today Context: Sudden Onset Timing: Continuous Quality of Pain: - (Bleeding) Location: Right ankle Worsened by: Nothing Relieved by: Pressure Associated Symptoms Associated Symptoms: Negative for Parasthesia or Weakness Narrative Tetanus Immunization: Unknown [facility] Medical History Sleep apnea treated with nocturnal bilevel positive airway pressure (BPAP) Diabetes Wears glasses Wears dentures Anxiety Alcohol use Marijuana use History of steroid therapy Ambulates with cane Arthritis Easy bruising Restless legs Back pain Migraine headache Vertigo Non-smoker Hoarseness Shortness of breath on exertion Leg cramps History of pain when walking History of edema Hypertension Home Medications ?Medication ?Instructions ?Recorded ?Last Taken ?Type naproxen sodium 220 mg capsule 220 mg PO BID PRN pain 07/28/21 Unknown History albuterol sulfate 90 mcg/actuation 2 puff inhalation Q6H PRN SOB 01/19/22 03/20/24 History aerosol inhaler cholecalciferol (vitamin D3) 1,250 50,000 unit PO QWEEK 01/17/24 03/19/24 History mcg (50,000 unit) capsule dulaglutide 0.75 mg/0.5 mL 1.5 mg subcut QWEEK 01/17/24 03/22/24 History subcutaneous pen injector (Trulicity) melatonin 10 mg capsule 10 mg PO QHS 01/17/24 Unknown History progesterone micronized 100 mg 100 mg PO QHS 03/12/24 03/21/24 History capsule scopolamine base 1 mg over 3 days 1 patch transdermal Q3D PRN motion 03/12/24 Unknown History transdermal patch sickness glipizide 10 mg tablet 10 mg PO DAILY 03/23/24 Unknown History levothyroxine .Route DAILY 03/23/24 03/22/24 History Allergy/AdvReac Type Severity Reaction Status Date / Time adhesive tape Allergy Unknown Unknown Verified 07/29/24 00:56 nickel Allergy Unknown Unknown Verified 07/29/24 00:56 Surgical History History of Hx of vein stripping Hx of arthroscopic knee surgery History of lumbar surgery Social History Smoking Status: Never smoker Electronic Cigarette Use: not used second hand exposure: No alcohol intake: never substance use type: does not use ROS ROS ED Constitutional Constitutional ED: Denies chills or fever(s) Eyes Eyes: Denies blurry vision or change in vision ENT ENT ED: Denies rhinorrhea or sore throat Cardiovascular Cardiovascular: Denies chest pain or palpitations Respiratory/Chest Respiratory/Chest: Denies cough or dyspnea Gastrointestinal Gastrointestinal: Denies nausea or vomiting Genitourinary Genitourinary ED: Denies dysuria or hematuria Musculoskeletal Musculoskeletal: Denies back pain or neck pain Integumentary Denies abscess or rash Neurologic Neurologic: Denies headache(s) or weakness Allergic/Immunologic Allergic/Immunologic ED: Denies mouth swelling or urticaria EXAM Physical Exam Const Vital Signs: 07/29/24 00:56 Temperature 98.4 F Temperature Source Temporal Pulse Rate 103 H Respiratory Rate 18 Blood Pressure 145/99 H Blood Pressure Mean 114 Pulse Ox 94 Oxygen Delivery Method Room Air Positive well nourished and well developed General Appearance ED: well developed and NAD HEENT Reports moist mucous membranes Neck full ROM Extremity Extremity Narrative: There is a small open area over the lateral aspect of the right ankle. After a pressure dressing was applied, there is no further bleeding noted. There is no erythema or warmth noted. There is full range of motion. Sensation is intact to light touch in all digits. Capillary refills less than 2 seconds in all digits. Pedal pulses are equal bilaterally. Neuro oriented x3, CN's II-XII intact bilaterally, moves all extremities and no sensory deficits noted Sensorium / Orientation: alert Motor Exam: strength 5/5 throughout MDM MDM MDM Narrative Medical decision making narrative: Patient was advised that this is an open varicose vein. Patient was advised that there will be a lot of bleeding due to the increased pressure in the varicose veins. Patient was given a tetanus booster. Bacitracin dressing was applied. Patient was instructed to follow-up with her primary care physician in 5 to 7 days. Patient was instructed to keep her ankle elevated. Patient was instructed to return if worse in any way. Patient understood and was agreeable with the plan. All questions were answered. Discharge Plan Triage Chief Complaint: Wound ED Provider: Mehul Galvez Dx/Rx/DC Orders Clinical Impression: Bleeding from varicose veins of right lower extremity, Osteoarthritis of hip Instructions: ED Varicose Veins Prescriptions: No Action naproxen sodium 220 mg capsule 220 mg PO BID PRN (Reason: pain) albuterol sulfate 90 mcg/actuation HFA aerosol inhaler 2 puff inhalation Q6H PRN (Reason: SOB) melatonin 10 mg capsule 10 mg PO QHS Trulicity 0.75 mg/0.5 mL pen injector 1.5 mg subcut QWEEK cholecalciferol (vitamin D3) 1,250 mcg (50,000 unit) capsule 50,000 unit PO QWEEK scopolamine base 1 mg over 3 days patch 3 day 1 patch transdermal Q3D PRN (Reason: motion sickness) progesterone micronized 100 mg capsule 100 mg PO QHS levothyroxine .Route DAILY glipizide 10 mg tablet 10 mg PO DAILY Primary Care Provider: Nicole Aguila Referrals: Nicole Aguila DO [Primary Care Provider] - 5-7 Days Print Language: Occitan Disposition Disposition: Home, Self Care
[2024-07-29] MEDS: Diphth,Pertuss(Acell),Tet Vac 0.5 ML Vial IM (02:44)
[2024-07-29 02:55] VITALS: BP 144/92; PULSE 89; RESP 16; O2SAT 98
[2024-07-29 03:00] VITALS: BP 144/92; PULSE 87; RESP 18; TEMP 36.7; O2SAT 99
== END 2024-07-29 03:14 | disposition home or self-care (01) ==
PROVIDERS: Emergency Provider Emergency Medicine; PCP Family Medicine; Visit Provider Emergency Medicine
DX: I83.891 Varicose veins of right lower extremity with other complications (principal); E11.9 Type 2 diabetes mellitus without complications; R06.02 Shortness of breath; M16.9 Osteoarthritis of hip, unspecified; G47.30 Sleep apnea, unspecified; Z86.79 Personal history of other diseases of the circulatory system; Z79.85 Long-term (current) use of injectable non-insulin antidiabetic drugs
CPT/HCPCS: 90715; 99283

== ENCOUNTER 2024-08-09 17:58 | Emergency (ER) | payer MEDICAID, SELFPAY ==
[2024-08-09 17:59] VITALS: BP 123/84; PULSE 97; RESP 16; TEMP 36.4; O2SAT 97
[2024-08-09 19:16] VITALS: BMI 49.8
--- NOTE | 2024-08-09 19:16 | EX.ED.DYSGE1 ---
HPI History of Present Illness Chief Complaint: Lower Extremity Injury Detail of Chief Complaint: Bleeding varicose vein Informant: patient Onset/Context/Timing Onset: Today and Yesterday Context: Sudden Onset Timing: Intermittent Quality: Blood from varicose vein near right lateral malleolus Current Severity: Gone Maximum Severity: Moderate Worsened by: Exposure of vessel Relieved by: Tourniquet Associated Symptoms Associated Symptoms: None Narrative Narrative: Patient is a 38-year-old female. She has history of varicose veins with prior bleeding, greater trochanteric bursitis, obesity and osteoarthritis of the hip. She has no history of trauma. She is on no antithrombotic or anticoagulant. Prior similar symptoms: Yes (July 29, 2024) Recent Illness/Hospitalization: No [facility] Medical History Sleep apnea treated with nocturnal bilevel positive airway pressure (BPAP) Diabetes Wears glasses Wears dentures Anxiety Alcohol use Marijuana use History of steroid therapy Ambulates with cane Arthritis Easy bruising Restless legs Back pain Migraine headache Vertigo Non-smoker Hoarseness Shortness of breath on exertion Leg cramps History of pain when walking History of edema Hypertension Home Medications ?Medication ?Instructions ?Recorded ?Last Taken ?Type naproxen sodium 220 mg capsule 220 mg PO BID PRN pain 07/28/21 Unknown History albuterol sulfate 90 mcg/actuation 2 puff inhalation Q6H PRN SOB 01/19/22 03/20/24 History aerosol inhaler cholecalciferol (vitamin D3) 1,250 50,000 unit PO QWEEK 01/17/24 03/19/24 History mcg (50,000 unit) capsule dulaglutide 0.75 mg/0.5 mL 1.5 mg subcut QWEEK 01/17/24 03/22/24 History subcutaneous pen injector (Trulicity) melatonin 10 mg capsule 10 mg PO QHS 01/17/24 Unknown History progesterone micronized 100 mg 100 mg PO QHS 03/12/24 03/21/24 History capsule scopolamine base 1 mg over 3 days 1 patch transdermal Q3D PRN motion 03/12/24 Unknown History transdermal patch sickness glipizide 10 mg tablet 10 mg PO DAILY 03/23/24 Unknown History levothyroxine .Route DAILY 03/23/24 03/22/24 History Allergy/AdvReac Type Severity Reaction Status Date / Time adhesive tape Allergy Unknown Unknown Verified 07/29/24 00:56 nickel Allergy Unknown Unknown Verified 07/29/24 00:56 Surgical History History of Hx of vein stripping Hx of arthroscopic knee surgery History of lumbar surgery Social History Smoking Status: Former smoker Electronic Cigarette Use: not used second hand exposure: No alcohol intake: never substance use type: does not use ROS ROS ED Integumentary Denies Abrasions or rash Neurologic Neurologic: Denies paresthesias or weakness Hematologic/Lymphatic Hematologic/Lymphatic: Denies easy bleeding or easy bruising EXAM Physical Exam Const Vital Signs: 08/09/24 17:59 Temperature 97.6 F L Temperature Source Temporal Pulse Rate 97 Respiratory Rate 16 Blood Pressure 123/84 H Blood Pressure Mean 97 Pulse Ox 97 Oxygen Delivery Method Room Air Positive well nourished and well developed General Appearance ED: well developed and NAD Eyes PERRL and EOMs intact bilaterally General Eye ED: Yes pale conjunctiva Resp normal respiratory effort Cardio regular rate and regular rhythm Extremity Extremity Narrative: Patient has eschar presently over the bleeding site. Since she was seen here on the for bleeding from the same site plan is to anesthetize area and place a [id number] stitch using dissolvable sutures, Vicryl Neuro oriented x3 and CN's II-XII intact bilaterally Sensorium / Orientation: alert Skin Skin Narrative: Bleeding from varicose vein MDM MDM MDM Narrative Medical decision making narrative: Presently bleeding is stopped. Since patient had intermittent bleeding for the last 24 hours will anesthetize area and placed a [id number] stitch. Procedures Other Procedures Procedure(s): The area was anesthetized. The area was cleansed. Using 5-0 Ethilon 1 figure 8 stitch was placed. The eschar fell off there was active bleeding. With tying down of the stitch the bleeding stopped. Patient be discharged to home Discharge Plan Triage Chief Complaint: Lower Extremity Injury ED Provider: Nahun Childers Dx/Rx/DC Orders Clinical Impression: Hemorrhage of varicose veins of right lower extremity, Obesity Instructions: ED Varicose Veins Prescriptions: No Action naproxen sodium 220 mg capsule 220 mg PO BID PRN (Reason: pain) albuterol sulfate 90 mcg/actuation HFA aerosol inhaler 2 puff inhalation Q6H PRN (Reason: SOB) melatonin 10 mg capsule 10 mg PO QHS Trulicity 0.75 mg/0.5 mL pen injector 1.5 mg subcut QWEEK cholecalciferol (vitamin D3) 1,250 mcg (50,000 unit) capsule 50,000 unit PO QWEEK scopolamine base 1 mg over 3 days patch 3 day 1 patch transdermal Q3D PRN (Reason: motion sickness) progesterone micronized 100 mg capsule 100 mg PO QHS levothyroxine .Route DAILY glipizide 10 mg tablet 10 mg PO DAILY Primary Care Provider: Nicole Agiula Referrals: Nicole Aguila DO [Primary Care Provider] - As Needed Print Language: Somali Disposition Disposition: Home, Self Care
[2024-08-09] MEDS: Lidocaine 1% (20 ml mdv) 20 ML Vial INFILT (19:22)
== END 2024-08-09 20:20 | disposition home or self-care (01) ==
PROVIDERS: Emergency Provider Emergency Medicine; PCP Family Medicine; Visit Provider Emergency Medicine
DX: I83.891 Varicose veins of right lower extremity with other complications (principal); E11.9 Type 2 diabetes mellitus without complications; I10 Essential (primary) hypertension; E66.9 Obesity, unspecified; Z79.85 Long-term (current) use of injectable non-insulin antidiabetic drugs; Z79.84 Long term (current) use of oral hypoglycemic drugs; Z79.890 Hormone replacement therapy; Z79.899 Other long term (current) drug therapy; Z87.891 Personal history of nicotine dependence
CPT/HCPCS: 12001; 99283

== ENCOUNTER → 2025-03-20 | Outpatient (CLI) | payer MEDICARE, MEDICAID, SELFPAY ==
--- NOTE | 2025-03-20 09:18 | CT_ITS ---
PROCEDURE: EXTREMITY LOWER WITHOUT CONTRA 03/20/2025 REASON FOR EXAM: TEMPLATING FOR RIGHT TANGELA TECHNIQUE: Axial CT images of the pelvis/bilateral hips and bilateral knees obtained without contrast. Coronal and Sagittal reconstruction series were provided. One or more dose reduction techniques were used (e.g., Automated exposure control, adjustment of the mA and/or kV according to patient size, use of iterative reconstruction technique). RADIATION DOSE SUMMARY: DLP: 790.2 mGycm COMPARISON: None. FINDINGS: Moderate/severe right hip osteoarthritis characterized by near complete loss of the joint space and prominent subchondral sclerosis of the acetabular roof. No fracture. No bone lesion. Mineralization appears within normal limits. The contralateral left hip shows only minor osteoarthritic change. Incidental moderate degenerative disc disease and facet arthropathy at L5-S1. Bilateral knee joints are unremarkable. CT/Extremity Lower without Contra IMPRESSION: Images obtained for preoperative planning. Moderate/severe right hip DJD noted . No fractures or bone lesions identified. Reading Location: [facility]
== END | disposition home or self-care (01) ==
LOC: CT 09:16
PROVIDERS: PCP Family Medicine; Referring Provider Orthopaedic Surgery; Visit Provider Orthopaedic Surgery
DX: M16.11 Unilateral primary osteoarthritis, right hip (principal)
CPT/HCPCS: 73700

== ENCOUNTER 2025-03-30 15:40 | Observation (INO) | payer MEDICARE, MEDICAID, SELFPAY ==
--- NOTE | 2025-03-18 14:16 | PAT.ANE_ITS ---
Pre-Assessment Diagnosis/Proposed Procedure Planned Operative Procedure(s): (R) Right Total Hip Replacement Robotic Arm Assisted,ERAS Anesthesia History Anesthesia History - pain management nurse practitioner: Anesthesia History - pain management nurse practitioner Hx Hospitalization No 03/16/25 10:08 Any Problems With Anesthesia No 03/16/25 10:08 Cholinesterase deficiency No 03/16/25 10:08 You/Your Family Experience No 03/16/25 10:08 fever (hyperthermia) with Relationship Recent Exposure to Contagious No 03/23/24 10:21 Disease Does patient have nerve No 03/16/25 10:08 stimulator Patient instructed to have device shut off --Does patient have Pacemaker or ICD? When Was Last Pacemaker Check QUESTION #4 FULL TEXT: You/Your Family Experience fever (hyperthermia) with Anesthesia Last Oral Intake Last Oral intake: Last Oral Intake NPO since Meds taken in AM with sips of water? Meds patient instructed to take am of surgery PONV PONV - pain management nurse practitioner: PONV - pain management nurse practitioner Female Yes 03/16/25 10:08 HX of Motion Sickness Yes 03/16/25 10:08 HX of N/V After Surgery No 03/16/25 10:08 Non-Smoker Yes 03/16/25 10:08 Duration of Surgery greater Yes 03/16/25 10:08 than 60 minutes Number of Risk Factors 4 03/16/25 10:08 PONV Score Severe Risk 03/16/25 10:08 Height & Weight Height & Weight: Anesthesia: Height & Weight Height 5 ft 10.5 in 01/18/25 10:00 Respiratory Assessment Respiratory Assessment - pain management nurse practitioner: Respiratory Tract Infection Hx - pain management nurse practitioner Hx Respiratory Tract Infection No 03/16/25 10:08 STOP Sleep Apnea STOP Sleep Apnea - pain management nurse practitioner: STOP Sleep Apnea - pain management nurse practitioner Hx Hypertension No 03/16/25 10:08 Hx Sleep Apnea Yes: STATES HAS NOT USED 03/16/25 10:08 SINCE GASTRIC BYPASS 11/2024 CPAP Yes 03/16/25 10:08 BIPAP No 03/16/25 10:08 Do you snore loudly (louder than talking or can be heard Do you often feel tired/ fatigued/ sleepy during daytime? Has anyone observed you stop breathing during sleep? STOP Results Positive 03/16/25 10:08 QUESTION #5 FULL TEXT : Do you snore loudly (louder than talking or can be heard through closed doors)? 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 Specify any problems Hx of Preganancy in last 3 N/A 03/16/25 10:08 Months Nurse Filling Out Transfusion NBUCHER 03/16/25 10:08 & Questions: Date: 03/16/25 03/16/25 10:08 Time: 10:10 03/16/25 10:08 Patient unable to answer at this time (ie. confused, unrespo /Reproduction History /Reproductive History - pain management nurse practitioner: /Reproductive Hx- pain management nurse practitioner Hx Now No 03/16/25 10:08 Gestational Age (in weeks): EDC: Hx Hx Para Hx Section SAB No 03/16/25 10:08 [facility] Medical History (Updated 03/16/25 @ 10:16 by Kayce Madsen) Low iron Fatty liver CPAP (continuous positive airway pressure) dependence Sleep apnea Former smoker History of Holter monitoring History of echocardiogram Sleep apnea treated with nocturnal bilevel positive airway pressure (BPAP) Diabetes Wears glasses Wears dentures Anxiety Alcohol use Marijuana use History of steroid therapy Ambulates with cane Arthritis Easy bruising Restless legs Back pain Migraine headache Vertigo Non-smoker Hoarseness Shortness of breath on exertion Leg cramps History of pain when walking History of edema Hypertension Home Medications ?Medication ?Instructions ?Recorded ?Last Taken ?Type albuterol sulfate 90 mcg/actuation 2 puff inhalation Q 6H PRN SOB 01/19/22 03/20/24 History aerosol inhaler progesterone micronized 100 mg 100 mg PO QHS HORMONE R EPLACEMENT 03/12/24 03/21/24 History capsule scopolamine base 1 mg over 3 days 1 patch transdermal Q3D PRN motion 03/12/24 Unknown History transdermal patch sickness biotin 10 mg tablet 10 mg PO QDAY SUPPLEMENT 02/09 Unknown History calcium citrate 500 mg PO TID SUPPLEMENT 02/09 Unknown History cyclobenzaprine 10 mg tablet 10 mg PO QHS PRN muscle s pasm 01/18/25 Unknown History ferrous sulfate 325 mg (65 mg 325 mg PO QDAY LOW IRON 01/18/25 Unknown History iron) tablet levothyroxine 75 mcg tablet 75 mcg PO DAILY HYPOTHYROI D 01/18/25 Unknown History liothyronine 5 mcg tablet 5 mcg PO DAILY HYPOTHYROID 0 01/18/25 Unknown History [id number] 8 mg-folic 400 1 tab PO QDAY SUPPLE MENT 01/18/25 Unknown History mcg-K 50 mcg-lutein 300 mcg tablet (Centrum Silver Women) omeprazole 40 mg capsule,delayed 40 mg PO DAILY GERD 0 01/18/25 Unknown History release thiamine HCl (vitamin B1) 50 mg 50 mg PO QDAY SUPPLEME NT 01/18/25 Unknown History tablet cholecalciferol (vitamin D3) 125 125 mcg PO DAILY SUPP LEMENT 03/16/25 Unknown History mcg (5,000 unit) tablet (Vitamin D3) Allergy/AdvReac Type Severity Reaction Status Date / Time adhesive tape Allergy Unknown Unknown Verified 03/16/25 10:04 nickel Allergy Unknown Unknown Verified 03/16/25 10:04 Surgical History (Updated 03/16/25 @ 10:16 by Kayce Madsen) History of gastric bypass (~11/2024) History of Hx of vein stripping Hx of arthroscopic knee surgery History of lumbar surgery Social History Smoking Status: Former smoker Electronic Cigarette Use: not used second hand exposure: No alcohol intake: never substance use type: does not use Audit: Pertinent Findings Pertinent Findings EKG Perinent findings: December 04, 2023. Sinus rhythm. Incomplete left bundle branch block. Combined atrial enlargement. November 13, 2023. Normal sinus rhythm with sinus arrhythmia. Cannot rule out anterior infarct, age undetermined. Nonspecific T wave changes. Echo (EF%) pertinent findings: December 13, 2023. Ejection fraction 65%. No significant valvular abnormalities. No aortic stenosis. PA systolic pressure is 31 mmHg. Consult pertinent findings: September 09, 2024. Dr. Barclay?cardiology. 1. Preop assessment for bariatric surgery-cardiac low risk for major cardiac complications during intermediate risk procedure. 2. Morbid obesity-agree with weight loss efforts. Additional pertinent findings: Holter monitor-December 09, 2023 to January 07, 2024?sinus rhythm showed no concerning rhythm issues. Recommendation Anesthesia Recommendation Anesthesia recommendation: OPTIMIZED for anesthesia
--- NOTE | 2025-03-23 10:12 | EKG12_ITS ---
Test Reason : PRE OP Blood Pressure : */* mmHG Vent. Rate : 55 BPM Atrial Rate : 55 BPM P-R Int : 152 ms QRS Dur : 88 ms QT Int : 410 ms P-R-T Axes : 29 32 11 degrees QTcB Int : 392 ms Sinus bradycardia Poor R-wave progression Borderline Confirmed by Shilo Pate ([id number]), supervising editor news reel SHAHLA PACHECO ([id number]) on 03/26/2025 12:51:57 PM Referred By: Anthoyn Michelle Confirmed By: Shilo Pate
[2025-03-23 11:32] LABS: Absolute Lymphocyte Count 1.42 X10^3/uL (0.83-4.51); Absolute Neutrophil Count 3.8 X10^3/uL (2.0-7.7); Basophil# 0.04 X10^3/uL; Basophil% 0.7 % (0-1); Eosinophil# 0.14 X10^3/uL; Eosinophils% 2.5 % (0-5); Hematocrit 37.8 % (37-47); Hemoglobin 11.7 g/dL (12.0-15.0); Lymphocyte # 1.42 X10^3/ul (0.83-4.51); Mean Corpuscular Hgb 24.9 pg (27.0-32.0); Mean Corpuscular Volume 80.4 fL (81-99); Mean Platelet Vol. 9.4 fl (6.2-12.0); Monocyte# 0.24 X10^3/uL; Monocyte% 4.2 % (0-10); NRBC Flagged by Analyzer 0 % (0-5); Neutrophil # 3.83 X10^3/uL (2.7-7.7); Neutrophil % 67.2 % (47-70); Platelet Count 260 K/mm3 (150-450); RBC Distribution Width CV 16.4 % (11.6-14.6); RBC Distribution Width SD 48.5 fl (35.1-43.9); White Blood Count 5.7 K/mm3 (4.4-11.0)
[2025-03-23 11:36] LABS: Internal QC Validated? YES +Cl - CLEAR BKGD
[2025-03-23 11:37] LABS: Pregnancy, Urine Negative Negative
[2025-03-23 11:39] LABS: Prothrombin Time (Protime)PT. 13.7 SECONDS (11.7-14.9)
[2025-03-23 12:31] LABS: Anion Gap 12 (5-15); BUN 7 mg/dL (4-19); Calcium,Total 9.6 mg/dL (7.6-11.0); Chloride 103 mmol/L (98-108); Creatinine, Serum 0.83 mg/dL (0.70-1.20); EST Glomerular Filtration Rate 91 (>60); Glucose 98 mg/dL (70-99); Magnesium 2.2 mg/dL (1.5-2.2); Potassium 3.6 mmol/L (3.3-5.1); Sodium Level 140 mmol/L (133-145)
[2025-03-23 12:48] LABS: Hemoglobin A1c 5.2 % (<=5.6)
[2025-03-24 05:07] LABS: Fructosamine 193 umol/L (0-285)
[2025-03-30] VITALS (18 sets, daily range): BP systolic 108–153; BP diastolic 51–100; PULSE 54–79; RESP 12–18; TEMP 36.1–36.6; O2SAT 95–100; BMI 38.9
[2025-03-30] MEDS: Scopolamine 1mg/72hr Patch 1 PATCH TD (06:26)
[2025-03-30] MEDS: Gabapentin 600 MG Tablet PO (06:26)
[2025-03-30] MEDS: Celecoxib 200 MG Capsule 400 MG PO (06:26)
[2025-03-30] MEDS: Acetaminophen 500 MG Tablet 1000 MG PO ×3 (06:26→21:49)
[2025-03-30] MEDS: Lactated Ringers 1,000 ML 999 ML IV (06:34)
[2025-03-30] MEDS: Lactated Ringers 1,000 ML 100 ML IV (06:35)
[2025-03-30 06:42] LABS: Internal QC Validated? YES +Cl - CLEAR BKGD
[2025-03-30 06:43] LABS: Pregnancy, Urine Negative Negative
[2025-03-30] MEDS: Magnesium 1 GM over 15 mins IV (06:44)
--- NOTE | 2025-03-30 06:56 | PCM.PRE.AN2 ---
ASA Classification* ASA Classification ASA Classification: 3 Assessment & Plan Anesthesia* Anesthesia Assessment Anesthesia Assessment: Discussed sedation and/or anesthesia options, risks, benefits, and alternatives with patient/parents/legal guardian/POA. Questions invited. The patient/parents/legal guardian/POA seems to understand and agrees to proceed with anesthesia plan. Reviewed the physical assessment, medical history, allergy history and patient home medications list prior to surgery/procedure/anesthetic and documented any changes. Performed airway and anesthesia risk assessments. Anesthesia Type Anesthesia Type: MAC and Spinal History Source History Obtained from:: Patient and Chart Anesthesia Focused Assessment* Temperature: 97.7 F Pulse Rate: 67 Blood Pressure: 150/68 Respiratory Rate: 16 Pulse Ox: 98 Airway Assessment Mouth opens: >3 cm Mallampati Score: III Focused Labs Anesthesia Preop lab: CBC WBC 5.7 K/mm3 (4.4-11.0) 03/23/25 10:47 03/23/25 RBC 4.70 M/mm3 (4.2-5.4) 03/23/25 10:47 03/23/25 Hgb 11.7 g/dL (12.0-15.0) L 03/23/25 10:47 03/23/25 Hct 37.8 % (37-47) 03/23/25 10:47 03/23/25 Plt Count 260 K/mm3 (150-450) 03/23/25 10:47 03/23/25 CHEMISTRY Potassium 3.6 mmol/L (3.3-5.1) 03/23/25 10:47 03/23/25 Sodium 140 mmol/L (133-145) 03/23/25 10:47 03/23/25 Magnesium 2.2 mg/dL (1.5-2.2) 03/23/25 10:47 03/23/25 BUN 7 mg/dL (4-19) 03/23/25 10:47 03/23/25 Creatinine 0.83 mg/dL (0.70-1.20) 03/23/25 10:47 03/23/25 Glucose 98 mg/dL (70-99) 03/23/25 10:47 03/23/25 POC Glucose 145 mg/dL (74-106) H 03/23/24 10:12 03/23/24 TSH 1.000 uIU/mL (0.300-4.200) 03/23/25 10:47 03/23/25 COAG PT 13.7 SECONDS (11.7-14.9) 03/23/25 10:47 03/23/25 HCG, Quant 62263 mIU/mL (<9 non-preg) H 12/30/14 16:32 12/30/14 Urine Test Negative Negative 03/30/25 06:00 03/30/25 Pre-Assessment Diagnosis/Proposed Procedure Planned Operative Procedure(s): (R) Right Total Hip Replacement Robotic Arm Assisted,ERAS Anesthesia History Anesthesia History - agricultural research engineer: Anesthesia History - agricultural research engineer Hx Hospitalization No 03/16/25 10:08 Any Problems With Anesthesia No 03/16/25 10:08 Cholinesterase deficiency No 03/16/25 10:08 You/Your Family Experience No 03/16/25 10:08 fever (hyperthermia) with Relationship Recent Exposure to Contagious No 03/30/25 06:13 Disease Does patient have nerve No 03/16/25 10:08 stimulator Patient instructed to have device shut off --Does patient have Pacemaker No 03/30/25 06:15 or ICD? When Was Last Pacemaker Check QUESTION #4 FULL TEXT: You/Your Family Experience fever (hyperthermia) with Anesthesia Last Oral Intake Last Oral intake: Last Oral Intake NPO since 03:30 03/30/25 06:15 Meds taken in AM with sips of Yes 03/30/25 06:15 water? Meds patient instructed to take am of surgery PONV PONV - agricultural research engineer: PONV - agricultural research engineer Female Yes 03/16/25 10:08 HX of Motion Sickness Yes 03/16/25 10:08 HX of N/V After Surgery No 03/16/25 10:08 Non-Smoker Yes 03/16/25 10:08 Duration of Surgery greater Yes 03/16/25 10:08 than 60 minutes Number of Risk Factors 4 03/16/25 10:08 PONV Score Severe Risk 03/16/25 10:08 Height & Weight Height & Weight: Anesthesia: Height & Weight Height 5 ft 10 in 03/30/25 06:15 Weight: 123.286 kg 03/30/25 06:15 Body Mass Index (BMI) 38.9 03/30/25 06:15 Respiratory Assessment Respiratory Assessment - agricultural research engineer: Respiratory Tract Infection Hx - agricultural research engineer Hx Respiratory Tract Infection No 03/16/25 10:08 STOP Sleep Apnea STOP Sleep Apnea - agricultural research engineer: STOP Sleep Apnea - agricultural research engineer Hx Hypertension No 03/16/25 10:08 Hx Sleep Apnea Yes: STATES HAS NOT USED 03/16/25 10:08 SINCE GASTRIC BYPASS 11/2024 CPAP Yes 03/16/25 10:08 BIPAP No 03/16/25 10:08 Do you snore loudly (louder than talking or can be heard Do you often feel tired/ fatigued/ sleepy during daytime? Has anyone observed you stop breathing during sleep? STOP Results Positive 03/16/25 10:08 QUESTION #5 FULL TEXT : Do you snore loudly (louder than talking or can be heard through closed doors)? 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 Specify any problems Hx of Preganancy in last 3 N/A 03/16/25 10:08 Months Nurse Filling Out Transfusion NBUCHER 03/16/25 10:08 & Questions: Date: 03/16/25 03/16/25 10:08 Time: 10:10 03/16/25 10:08 Patient unable to answer at this time (ie. confused, unrespo /Reproduction History /Reproductive History - agricultural research engineer: /Reproductive Hx- agricultural research engineer Hx Now No 03/16/25 10:08 Gestational Age (in weeks): EDC: Hx Hx Para Hx Section SAB No 03/16/25 10:08 Active Medications Active Medications: Current Medications Generic Name Dose Route Start Last Admin Trade Name Reny PRN Reason Stop Dose Admin Acetaminophen 1,000 mg 03/30/25 07:30 03/30/25 06:26 Acetaminophen 500 Mg Tablet PO 03/30/25 07:31 1,000 mg PREOP ONE Administration Celecoxib 400 mg 03/30/25 07:30 03/30/25 06:26 Celecoxib 200 Mg Capsule PO 03/30/25 07:31 400 mg PREOP ONE Administration Dexamethasone Sodium Phosphate 10 mg 03/30/25 07:30 Dexamethasone 10 Mg/Ml Vial IV 03/30/25 07:31 INTRAOP ONE Gabapentin 600 mg 03/30/25 07:30 03/30/25 06:26 Gabapentin 600 Mg Tablet PO 03/30/25 07:31 600 mg PREOP ONE Administration Lactated Ringer's 1,000 mls @ 999 mls/hr 03/30/25 07:30 03/30/25 06:34 IV 03/30/25 08:30 999 mls/hr .Q1H1M ANITA Administration Cefazolin Sodium 3 gm/ Sodium 115 mls @ 150 mls/hr 03/30/25 07:30 Chloride IV 03/30/25 08:15 INTRAOP ONE Tranexamic Acid 2,000 mg/ 120 mls @ 660 mls/hr 03/30/25 07:30 Sodium Chloride IV 03/30/25 07:40 INTRAOP ONE Lactated Ringer's 1,000 mls @ 125 mls/hr 03/30/25 07:30 IV 03/30/25 15:29 .Q8H ANITA Magnesium Sulfate 1 gm/ 102 mls @ 408 mls/hr 03/30/25 07:30 03/30/25 06:44 Dextrose IV 03/30/25 07:44 408 mls/hr INTRAOP ONE Administration Lactated Ringer's 1,000 mls @ 100 mls/hr 03/30/25 05:45 03/30/25 06:35 IV 100 mls/hr .Q10H ANITA Administration Insulin Human Lispro 1 - 6 unit 03/30/25 07:30 Insulin Lispro 100 Unit/Ml Insuln.Pen SC Q4H PRN PRN BG>/= 180, SEE PROTOCOL Protocol Scopolamine HBr 1 patch 03/30/25 07:30 03/30/25 06:26 Scopolamine 1mg/72hr Patch TD 03/30/25 07:31 1 patch PREOP ONE Administration [facility] Medical History Low iron Fatty liver CPAP (continuous positive airway pressure) dependence Sleep apnea Former smoker History of Holter monitoring History of echocardiogram Sleep apnea treated with nocturnal bilevel positive airway pressure (BPAP) Diabetes Wears glasses Wears dentures Anxiety Alcohol use Marijuana use History of steroid therapy Ambulates with cane Arthritis Easy bruising Restless legs Back pain Migraine headache Vertigo Non-smoker Hoarseness Shortness of breath on exertion Leg cramps History of pain when walking History of edema Hypertension Home Medications ?Medication ?Instructions ?Recorded ?Last Taken ?Type albuterol sulfate 90 mcg/actuation 2 puff inhalation Q6H PRN SOB 01/19/22 03/20/24 History aerosol inhaler progesterone micronized 100 mg 100 mg PO QHS HORMONE REPLACEMENT 03/12/24 02/28/25 History capsule scopolamine base 1 mg over 3 days 1 patch transdermal Q3D PRN motion 03/12/24 03/26/25 History transdermal patch sickness biotin 10 mg tablet 10 mg PO QDAY SUPPLEMENT 01/18/25 03/29/25 History calcium citrate 500 mg PO TID SUPPLEMENT 01/18/25 03/29/25 History cyclobenzaprine 10 mg tablet 10 mg PO QHS PRN muscle spasm 01/18/25 Unknown History ferrous sulfate 325 mg (65 mg 325 mg PO QDAY LOW IRON 01/18/25 03/26/25 History iron) tablet levothyroxine 75 mcg tablet 75 mcg PO QHS HYPOTHYROID 01/18/25 03/29/25 History liothyronine 5 mcg tablet 5 mcg PO QHS HYPOTHYROID 01/18/25 03/29/25 History lhxzcvhm-dpgr-aosu 8 mg-folic 400 1 tab PO QDAY SUPPLEMENT 01/18/25 03/29/25 History mcg-K 50 mcg-lutein 300 mcg tablet (Centrum Silver Women) omeprazole 40 mg capsule,delayed 40 mg PO DAILY GERD 01/18/25 03/30/25 03:45 History release thiamine HCl (vitamin B1) 50 mg 50 mg PO QDAY SUPPLEMENT 01/18/25 03/29/25 History tablet cholecalciferol (vitamin D3) 125 125 mcg PO DAILY SUPPLEMENT 03/16/25 03/29/25 History mcg (5,000 unit) tablet (Vitamin D3) Allergy/AdvReac Type Severity Reaction Status Date / Time adhesive tape Allergy Unknown Unknown Verified 03/30/25 06:10 nickel Allergy Unknown Unknown Verified 03/30/25 06:10 Surgical History History of gastric bypass (~11/2024) History of Hx of vein stripping Hx of arthroscopic knee surgery History of lumbar surgery Social History Smoking Status: Former smoker Electronic Cigarette Use: not used second hand exposure: No alcohol intake: never substance use type: does not use Addt'l Information Additional Findings: EKG reviewed. Review of Systems (Anesthesia) ROS Narrative System reviewed and no additional complaints, except as documented. Physical Exam Const alert and oriented x3 Nutritional Appearance: obese HEENT HEENT Narrative: Discussed with patient if she wants to keep dentures in they could be damaged. Teeth and Gingiva: dentures Resp normal respiratory effort Cardio regular rate
--- NOTE | 2025-03-30 07:03 | HP.PCM_ITS ---
History and Physical Date of Admission: 03/30/25 [facility] [address] [place] [address] OFFICE VISIT Date of Service: 01/18/25 MR#: [id number] Acct: [id number] Name: MIK AGGARWAL Rep #: [id number] : 1985 Provider: Dr. Anthony Michelle DO Age/Sex: 39/F Location: [facility] [place] Status: Signed Intake Vital Signs 08/09/2417:59 01/18/2510:00 Height 5 ft 11 in 5 ft 10.5 in Weight: 308 lb BMI 43.5 Intake Visit Reasons: RIGHT HIP Chief Complaint: right hip Allergies adhesive tape Allergy (Unknown, Verified 07/29/24 00:56) Unknownnickel Allergy (Unknown, Verified 07/29/24 00:56) Unknown Medications ?Medication ?Instructions ?Recorded ?Confirmed ?Type albuterol sulfate 90 mcg/actuation 2 puff inhalation Q6H PRN SOB 01/19/22 01/18/25 History aerosol inhaler progesterone micronized 100 mg 100 mg PO QHS 03/12/24 01/18/25 History capsule scopolamine base 1 mg over 3 days 1 patch transdermal Q3D PRN motion 03/1201/18/25 History transdermal patch sickness biotin 10 mg tablet 10 mg PO QDAY 01/18/25 01/18/25 History calcium citrate 250 mg PO TID 01/18/25 01/18/25 History cyclobenzaprine 10 mg tablet 10 mg PO QHS PRN 01/18/25 01/18/25 Histo ry ferrous sulfate 325 mg (65 mg 325 mg PO QDAY 01/18/25 01/18/25 History iron) tablet levothyroxine 75 mcg tablet 75 mcg PO DAILY 01/18/25 01/18/25 Histor y liothyronine 5 mcg tablet mcg PO DAILY 01/18/25 01/18/25 History ervvodcb-nyro-dbrc 8 mg-folic 400 1 tab PO QDAY 01/18/25 01/18/25 History mcg-K 50 mcg-lutein 300 mcg tablet (Centrum Silver Women) omeprazole 40 mg capsule,delayed mg PO DAILY 01/18/25 01/18/25 History release thiamine HCl (vitamin B1) 50 mg 50 mg PO QDAY 01/18/25 01/18/25 History tablet ursodiol 300 mg capsule mg PO 01/18/25 01/18/25 History PFSH Medical History Sleep apnea treated with nocturnal bilevel positive airway pressure (BPAP) Diabetes Wears glasses Wears dentures Anxiety Alcohol use Marijuana use History of steroid therapy Ambulates with cane Arthritis Easy bruising Restless legs Back pain Migraine headache Vertigo Non-smoker Hoarseness Shortness of breath on exertion Leg cramps History of pain when walking History of edema Hypertension Surgical History History of Hx of vein stripping Hx of arthroscopic knee surgery History of lumbar surgery Social History Smoking Status: Former smoker Electronic Cigarette Use: not used second hand exposure: No alcohol intake: never substance use type: does not use HPI RIGHT HIP Details: This documentation accurately reflects the service provided and the decisions made by me, Dr. Anthony Michelle, DO 01/18/25 0744. Part of today?s visit was documented by Joan INMAN, acting as scribe. MIK AGGARWAL is a 39 year old F here today for continued right hip pain. She states that her last injection with Dr. Elmore was in 2022 and wasn't able to have any more after because the insurance was denying them. She did have gastric bypass surgery on December 07 2024. She would like to discuss having a hip replacement done today she would also like to discuss doing an injection as well. She is still having a lot of pain in the hip. Her pain is over her lateral hip and groin which is worsened with walking. After she does a lot of walking she does get stiffness in her hip. Ortho Exam General General: Yes no acute distress Neurologic: Yes alert and Yes oriented x3 Psychologic: Yes reasonable and appropriate Right Hip Skin: No Ecchymosis, No soft tissue swelling and No Erythema HIP: -15 IR, prefers to sit with ER posture 20 ER Significant pain with hip range of motion Morbidly obese edema bilateral lower extremities prominent varicose veins Head: Normocephalic Atraumatic Chest: symmetrical rise, non-labored breathing, no audible wheeze Abdomen: no guarding, non-rigid Supplemental Info 01/18/2025 x-ray right hip: Advanced hip arthrosis 03/23/2024 fluoroscopic guided right hip injection Dr. Angeles 05/02/2022 x-ray right hip:Progressing right hip arthrosis 07/28/2021 x-ray right hip joint space narrowing subchondral sclerosis and spurring 09/06/2021 x-ray lumbar spine: Moderate to severe L5-S1 degenerative disc disease multilevel facet joint arthrosis also noted T12-L1 degenerative disc disease 08/29/2021 MRI lumbar spine: Multilevel degenerative changes most significant at L4-L5 and L5-S1 Coding Level of Care Code Off vis,est,level 3 Diagnoses Primary osteoarthritis of right hip M16.11 Osteoarthritis type: primary Laterality: right Class 3 severe obesity due to excess calories with serious comorbidity and body mass index (BMI) of 45.0 to 49.9 in adult E66.813; E66.01; Z68.42 Obesity type: due to excess calories Serious obesity comorbidity presence: with serious comorbidity Body mass index: BMI 45.0-49.9 Obesity classification: adult class 3 (BMI >= 40) Assessment and Plan Assessment and Plan (1) Osteoarthritis of hip: Status: Acute Qualifiers: Osteoarthritis type: primary Laterality: right Qualified Code(s): M16.11 - Unilateral primary osteoarthritis, right hip (2) Obesity: Status: Acute Qualifiers: Obesity type: due to excess calories Serious obesity comorbidity presence: with serious comorbidity Body mass index: BMI 45.0-49.9 Obesity classification: adult class 3 (BMI >= 40) Qualified Code(s): E66.813 - Obesity, class 3; E66.01 - Morbid (severe) obesity due to excess calories; Z68.42 - Body mass index [BMI] 45.0-49.9, adult Orders: Orders HIP, UNI W/ Pelvis 2-3 Views Today M25.551 - Pain in right hip Plan Patient is here today for continued right hip pain. I obtained and reviewed xrays today with patient and advised her that she does have advanced arthritis in the hip. I spoke with patient that she would need to lose another 30lbs before being able to proceed with surgery. Patient should let us know a month before she wants to surgery to get it scheduled. Risks, benefits and alternatives of surgery reviewed including but not limited to bleeding, infection, nerve, foot drop, artery and/or tissue damage, fracture, VTE, leg length discrepancy, dislocation, need for hip precautions, continued pain and expected post-operative course. Follow up as needed or sooner if pain, swelling, numbness or associated symptoms, or concerns develop. All questions answered. Patient in agreement of plan. 01/18/25 1120 <Electronically signed by Anthony Michelle DO> Date Anthony Michelle DO I have examined the patient and the H&P has been reviewed. There are no clinical changes since date of exam.
--- NOTE | 2025-03-30 07:30 | FEM._PTH ---
PATIENT: MIK AGGARWAL LOC: [facility] U#:[id number] AGE/SX: 39/F [place] [facility]30[place]: Dr. Anthony Michelle DO : 1985 BED: 1 DIS: 03/31/2025 SPEC #: [id number] RECD: 03/30/25 10:48 STATUS: WEN RERain #: [id number] DIGNA: 03/30/25 07:[address]: Anthony Michelle DEPT: SURGICAL PATHOLOGY RECD BY: Pradeep Peña ENTERED: 03/30/25 11:02 SP TYPE: FEM HEAD OTHR DR: Dr. Nicole Aguila, DO Tissues: A - Hip, NOS Procedures: Decalcification bone/plaque Surgery Specimen Level III HEADER OPERATION: Right total hip replacement robotic arm assist PRE-OP DIAGNOSIS: Osteoarthritis of hip, obesity TISSUE SUBMITTED: A- Right femoral head MICROSCOPIC DIAGNOSIS A. Right femoral head, osteoarthritis, total arthroplasty: * Articular bone with osteoarthritic reactive/degenerative changes. * Trilineage hematopoiesis. MICROSCOPIC DESCRIPTION Slides are reviewed. GROSS DESCRIPTION A. Received in formalin in a container labeled with the patient's name, date of , and right femoral head is a 5.0 x 5.0 x 4.7 cm femoral head with attached 2.3 cm in length by 3 cm in diameter femoral neck. The resection margin is smooth and firm. The cortical surface is pitted and granular with a 6.0 x 2.8 cm area of smooth eburnation. There are multiple cabrera-pink nodules at the periphery. Sectioning reveals focally hemorrhagic, but unremarkable, firm surfaces. Received in the same container are multiple red-cabrera fragments of bone and blood measuring 7 x 7 x 2.5 cm in aggregate. Tie Fastener sections are submitted in A1 following decalcification. [facility] 03-30-2025 CPT:92587,00786
[2025-03-30 07:35] LABS: Bedside Glucose 115 mg/dL (74-106)
[2025-03-30] MEDS: Cefazolin 3 GM in 0.9% Normal Saline (100mL Bag) 100 ML IV ×3 (07:55→21:46)
[2025-03-30] MEDS: dexAMETHasone 10 MG/ML Vial IV (07:57)
[2025-03-30] MEDS: TRANEXAMIC ACID 2,000 MG in 0.9% Normal Saline (100mL Bag) 100 ML 660 MG IV (07:58)
[2025-03-30 09:16] LABS: Bedside Glucose 114 mg/dL (74-106)
--- NOTE | 2025-03-30 10:17 | PCM.OPRPT ---
Operative Report (Standard) Operative Information Date of Procedure: 03/30/25 Pre-Operative Diagnosis: Right hip DJD Post-Operative Diagnosis: Same Surgery/Procedure Performed: Right total arthroplasty robotic assisted spiral weaver: Yes Ski Production Supervisor: Nick Ca Tasks completed by bus assistant: Opening & closing, Implanting device and Retracting Type of Anesthesia: General and Spinal RN Documented Start/Stop Times: Operation Date: 03/30/25 07:30 Case Time Into Pre-Op 03/30/25 05:43 Anesthesia Start 03/30/25 07:32 Into Room 03/30/25 07:32 Out of Pre-Op 03/30/25 07:32 Procedure Start 03/30/25 08:25 Procedure End 03/30/25 10:20 Anesthesia End 03/30/25 10:32 Out of Room 03/30/25 10:32 Into Recovery 03/30/25 10:35 Procedure Start Time: 08:25 Procedure Stop Time: 10:20 Select all DRAINS/GRAFTS/IMPLANTS that apply: Prosthetic device Prosthetic device details: Gretta Estimated Blood Loss: 200 Specimen collected: Yes Description of specimen(s) removed: Femoral head Description of surgery: Preoperative diagnosis: Right hip DJD Postoperative diagnosis: Same Procedure: CT-guided Makoplasty assisted right total hip arthroplasty Implants: Gretta Accolade II stem size 6, 132 degree neck angle +7.5 head neck length 52 mm Trident II acetabular shell with 40 mm cancellous screw 36 mm ceramic head, 10 degree Trident X3 polyethylene insert. Anesthesia: Spinal EBL: 200 cc Complications: None Condition: Stable to PACU Gas Engine Operator Nick Ca. My physician assistant warehouse manager was a vital part of this case. He was important in appropriate retraction during the case, and protection of soft tissues during procedure. His intimate knowledge of the case and my steps aided in safe and expedient completion of the procedure as well as appropriate position of the extremity during the case. He was also vital in assisting with closure under my direct supervision. Indication for procedure: This is a 39-year-old female who has had long-standing arthrosis of the hip who has failed conservative treatment and wished to undergo total hip arthroplasty. We did discuss operative versus nonoperative intervention including risks of bleeding, infection , nerve artery tissue damage, need for further surgery, fracture, leg length discrepancy dislocation blood clot and need for postoperative physical therapy and postoperative expectations. An informed consent was signed. Procedure: Patient was met in the preoperative holding area once again the operative extremity was identified by both patient and physician and was marked. Patient was met by anesthesia . Anesthesia was started. patient was then positioned in the lateral decubitus position on a well-padded pegboard with an axillary roll. All bony prominences were checked and padded. The patient was prepped and draped in the usual sterile fashion. A timeout was called to ensure the proper patient procedure and extremity were being contemplated. Anatomic landmarks were palpated and marked for a standard posterior lateral approach. Prior to this the ASIS was palpated and 3 fingerbreadths proximal to this 3 pins were placed at a 45 degree angle into the iliac crest with good purchase, stab incisions were made with a 15 blade into the skin prior to placement. The Makoplasty array was then secured. A 10 blade scalpel was used to make a posterior incision through the skin and subcutaneous tissue. retractors were used and electrocautery was used to maintain meticulous hemostasis and dissect full-thickness flaps until the gluteal fascia was reached. The gluteal fascia was incised in line with the gluteal fibers. The bursal tissue was then freed from the underside and a Charnley retractor was placed. The femoral trochanteric checkpoint was placed and leg length was assessed using the trochanteric checkpoint and an EKG lead that was placed on the knee prior to prepping the leg .the fat pad was then elevated off of the external rotators with electrocautery and the external rotators were dissected off of the greater trochanter including the piriformis and were tagged with #1 Ethibond for later repair. The joint capsule opened with posterior trapdoor technique. The hip was surgically dislocated. The measurement on the preoperative CT from the top of the lesser trochanter to the femoral neck cut was marked Hohmann was placed around the lesser trochanter. A neck cutting guide was used to jayson the neck with a Bovie and an oscillating saw was used complete the femoral neck cut. The femoral head was then removed and sized. We then turned our attention to the acetabulum. A Bovie was used to make a perforation in the anterior joint capsule and a Oglesby retractor was placed this was repeated in the 6 o'clock position and a wide celia was placed there. With a long handled knife the labral and pulvinar tissue were removed. We then registered the acetabulum with the pointing array and confirmed our landmarks. Once the socket was thoroughly prepared and labral tissue and pulvinar was removed we single reamed with the robotic arm. We then used the robotic arm to position the acetabular implant and impacted it into place under robotic guidance. We then proceeded to place a posterior superior screw by drilling first measuring and inserting the screw. We then inserted a trial liner. And turned our attention back to the femur at this point a femoral elevator was used. As well as a pointed wide Hohmann around the lesser trochanter and a Hohmann to help retract the gluteus medius. A box chisel was used to remove excess lateral neck followed by a canal finder and a lateralizing reamer. This was followed by sequential broaches. Attention was made of the version within the canal based on preoperative templating. Once the final broach was seated we then trialed reduced the hip it was determined that a 132 degree neck angle with a 7.5 neck length was the appropriate size. We then checked stability with shuck testing as well as flexion and internal rotation. then proceeded with hip extension and checked leg lengths at the knees and heels as well as with the trochanteric checkpoint and knee EKG lead. At this point trials were removed. A liner was inserted to the cup. The femoral stem was inserted. We re-trialed and then proceeded to impact the femoral head onto the Freddy taper. We then surgically reduce the hip check stability again and leg lengths and were satisfied. Betadine rinse was allowed to sit for 5 minutes while everyone changed their gloves. Thorough irrigation was performed. Followed by closure of the external rotators with #2 FiberWire followed by closure of gluteal fascia with #1 Ethibond. 0 Vicryl fat stitches and 2-0 Vicryl subcutaneous stitches and suleman in the skin. Suleman were placed in the skin pin sites over the iliac crest and dressed with a Mepilex dressing. The main incision was dressed with a Mepilex ag dressing and an abduction pillow was placed. Patient tolerated the procedure well there was no intraoperative complications all counts were correct and the patient was brought back to the PACU in stable condition Surgical Findings: djd Complications Complications: No
--- NOTE | 2025-03-30 10:40 | RAD_ITS ---
PROCEDURE: HIP MIN 2 VIEWS (PORTABLE) 03/30/2025 REASON FOR EXAM: POST OP PACU TECHNIQUE: Two-view postoperative right hip arthroplasty, including low centered AP pelvis COMPARISON: Preoperative study of 01/18/2025. RAD/Hip Min 2 Views (Portable) IMPRESSION: Overlying skin rose are seen. The patient's postoperative right total hip arthroplasty, with satisfactory ali gnment noted. No complication is seen. Reading Location: [place] [id number]
--- NOTE | 2025-03-30 10:41 | PCM.POST.ANE ---
Anesthesia: Postop Eval I Current Vital Signs Temperature: 97 F Pulse Rate: 69 Blood Pressure: 142/70 Respiratory Rate: 16 Pulse Ox: 100 Oxygen Delivery Method: Nasal Cannula Oxygen Flow Rate (L/min): 4 Assessment Airway patent: Yes Spontaneous unlabored respirations: Yes Mental status: Awake nausea: No Vomiting: No Anesthesia Complication: No Fluid Hydration Crystalloid volume administer (ml): 1,700 Total IV fluid infused: 1,700 Progress Note Anesthesia document: Postop Eval 1 completed: Yes
--- NOTE | 2025-03-30 11:06 | DCINST_ITS ---
Discharge Instructions Diet Discharge Diet: 2200 Calorie Control Diet (minimize sweets, perioperative hyperglycemia increases risk of infection. ) Activity Weight Bearing Status: Full weight bearing Dressing / Incision Call your doctor if you observe: Shortness of breath and Chest pain Additional Dressing/Incision Instructions:: Do not shower for 72hrs. May Begin daily showering with warm water antibacterial soap postop day #3( 72hrs Post- operatively) and then daily. Leave the dressing on for 72 hours postoperatively then remove prior to first shower and change dressing daily after this until no drainage for 2 consecutive days then may leave open to air. If you decide not shower on Saturday and wish to sponge bath only, then may leave dressing undisturbed for up to 1 week, but must remove prior to first shower. Do not submerge for 3 weeks. If not showering daily after the initial dressing is removed you must clean incision and change dressing daily after the dressing comes off, must come off by 7 days postop. Do not allow animals near the incision area. Keep clean. Follow hip precautions that were reviewed in hospital. Wear compression stockings, may remove at night. Start physical therapy as directed in hospital. Follow prescriptions instructions do not take any other pain medication or differ dosing without consulting your physician. Do not take oral NSAIDs until blood thinner has been completed , then may begin the day after completion if needed . Call Dr. Michelle's office with any concerns. Follow Up Care Please Follow Up With: Anthony Michelle DO When: 2 weeks Test Results: Test results from this visit will be discussed in further detail at your follow- up appointment, if applicable. Discharge Plan Admission Admit Date/Time: 03/30/25 05:30 Primary Reason for Your Visit: Right total hip arthroplasty Attending Provider: Anthony Michelle Primary Care Provider: Nicole Aguila Discharge Orders/Prescriptions Prescriptions: New acetaminophen 500 mg tablet 1,000 mg PO Q6H Qty: 90 0RF cephalexin 500 mg capsule 1,000 mg PO Q8H Qty: 4 0RF Rx Instructions: Take 2 tabs before you go to bed and 2 tabs after 5 AM morning after surgery when you wake up Eliquis 2.5 mg tablet 2.5 mg PO BID Qty: 42 0RF Rx Instructions: Begin morning after surgery. oxycodone 5 mg tablet 5 - 10 mg PO Q6H PRN (Reason: pain) 7 Days Qty: 60 0RF Continued albuterol sulfate 90 mcg/actuation HFA aerosol inhaler 2 puff inhalation Q6H PRN (Reason: SOB) levothyroxine 75 mcg tablet 75 mcg PO QHS cyclobenzaprine 10 mg tablet 10 mg PO QHS PRN (Reason: muscle spasm) liothyronine 5 mcg tablet 5 mcg PO QHS omeprazole 40 mg capsule,delayed release(DR/EC) 40 mg PO DAILY Centrum Silver Women 8 mg iron-400 mcg-50 mcg tablet 1 tab PO QDAY thiamine HCl (vitamin B1) 50 mg tablet 50 mg PO QDAY calcium citrate 250 mg calcium tablet 500 mg PO TID Rx Instructions: 2 tabs 3x day ferrous sulfate 325 mg (65 mg iron) tablet 325 mg PO QDAY biotin 10 mg tablet 10 mg PO QDAY scopolamine base 1 mg over 3 days patch 3 day 1 patch transdermal Q3D PRN (Reason: motion sickness) progesterone micronized 100 mg capsule 100 mg PO QHS cholecalciferol (vitamin D3) [Vitamin D3] 125 mcg (5,000 unit) tablet 125 mcg PO DAILY Other Ambulatory Orders: 12 Lead EKG (Routine) Location: None Selected Ordered By: Dr. Anthony Michelle Referrals / Follow Up: Nicole Aguila DO [Primary Care Provider] - Disposition Discharge Orders: Discharge Patient (Routine); Ordered 03/30/25 Ordered By: Dr. Anthony Michelle
[2025-03-30] MEDS: oxyCODONE 5 MG Tablet PO ×3 (13:17→21:47)
--- NOTE | 2025-03-30 14:01 | POSTOPAN2_ITS ---
Anesthesia Postop Eval I Sum Postop Eval Completion status Anesthesia document: Postop Eval 1 completed: Yes Anesthesia Postop Eval I Summary Anesthesia Postop Eval I Summary: Anesthesia Postop Eval I: Assessment Summary Airway patent Yes 03/30/25 10:42 CLIENT SPECIALIST.LMIL Spontaneous unlabored Yes 03/30/25 10:42 CLIENT SPECIALIST.LMIL respirations Mental status Awake 03/30/25 10:42 CLIENT SPECIALIST.LMIL nausea No 03/30/25 10:42 CLIENT SPECIALIST.LMIL Vomiting No 03/30/25 10:42 CLIENT SPECIALIST.LMIL Anesthesia Postop Eval I: Fluid Summary Crystalloid volume administer 1,700 03/30/25 10:42 CLIENT SPECIALIST.LMIL (ml) Colloids volume administered ( ml) Blood Product volume administered (ml) Total IV fluid infused 1,700 03/30/25 10:42 CLIENT SPECIALIST.LMIL Anesthesia Postop Eval I: Summary Notes Anesthesia Complication No 03/30/25 10:42 CLIENT SPECIALIST.LMIL Anesthesia Complication Comment: Post-operative progress note Anesthesia: Postop Eval II Evaluation Mental status: Awake and Calm Pain Level: 5 nausea: No Vomiting: No Complications Anesthesia Complication: No
--- NOTE | 2025-03-30 14:01 | PCM.POSTANE2 ---
Anesthesia Postop Eval I Sum Postop Eval Completion status Anesthesia document: Postop Eval 1 completed: Yes Anesthesia Postop Eval I Summary Anesthesia Postop Eval I Summary: Anesthesia Postop Eval I: Assessment Summary Airway patent Yes 03/30/25 10:42 HABITAT MANAGEMENT COORDINATOR.LMIL Spontaneous unlabored Yes 03/30/25 10:42 HABITAT MANAGEMENT COORDINATOR.LMIL respirations Mental status Awake 03/30/25 10:42 HABITAT MANAGEMENT COORDINATOR.LMIL nausea No 03/30/25 10:42 HABITAT MANAGEMENT COORDINATOR.LMIL Vomiting No 03/30/25 10:42 HABITAT MANAGEMENT COORDINATOR.LMIL Anesthesia Postop Eval I: Fluid Summary Crystalloid volume administer 1,700 03/30/25 10:42 HABITAT MANAGEMENT COORDINATOR.LMIL (ml) Colloids volume administered ( ml) Blood Product volume administered (ml) Total IV fluid infused 1,700 03/30/25 10:42 HABITAT MANAGEMENT COORDINATOR.LMIL Anesthesia Postop Eval I: Summary Notes Anesthesia Complication No 03/30/25 10:42 HABITAT MANAGEMENT COORDINATOR.LMIL Anesthesia Complication Comment: Post-operative progress note Anesthesia: Postop Eval II Evaluation Mental status: Awake and Calm Pain Level: 5 nausea: No Vomiting: No Complications Anesthesia Complication: No
[2025-03-30] MEDS: Lactated Ringers 1,000 ML 125 ML IV (17:32)
[2025-03-30] MEDS: Albuterol 2.5 MG/3 ML VIAL.NEB. INHALATION (20:26)
[2025-03-30] MEDS: Senna/Docusate Sodium 1 Tablet 2 TABLET PO (21:48)
[2025-03-30] MEDS: Liothyronine 5 MCG Tablet PO (21:49)
[2025-03-30] MEDS: Levothyroxine 75 MCG Tablet PO (21:49)
[2025-03-30] MEDS: 0.9% Saline Lock 10 ML Syringe IV (21:50)
[2025-03-31] MEDS: Ketorolac 15 MG/ML Vial IV (00:40)
[2025-03-31] MEDS: 0.9% Saline Lock 10 ML Syringe IV (00:40)
[2025-03-31 04:54] VITALS: BP 135/59; PULSE 58; RESP 16; TEMP 36.6; O2SAT 99
[2025-03-31] MEDS: oxyCODONE 5 MG Tablet PO ×2 (04:56→09:11)
[2025-03-31] MEDS: Cefazolin 3 GM in 0.9% Normal Saline (100mL Bag) 100 ML IV (04:56)
[2025-03-31] MEDS: Acetaminophen 500 MG Tablet 1000 MG PO (04:57)
[2025-03-31] MEDS: APIXABAN 2.5 MG TABLET (WCH) PO (07:14)
[2025-03-31 08:33] VITALS: BP 133/60; PULSE 62; RESP 16; TEMP 36.7; O2SAT 96
[2025-03-31] MEDS: Pantoprazole Sodium 40 MG Tablet PO (09:07)
--- NOTE | 2025-03-31 09:25 | CASEMGMT ---
CATERINA PEACE Assessment: Face to Face with pt for initial transition planning/care coordination assessment. CATERINA PEACE introduced self and role at [facility], pt voices understanding and consents to assessment. Pt is A&O x4 and answers all questions appropriately at this time. Pt sitting up in chair in no distress. Care providers, pharmacy, and demographics verified/updated. Admitting Dx: R THR Strata Score: 1 PCP:Ayla Specialists:celia Michelle Pharmacy: [facility] Retail Insurance: [facility] [place] Prescription Benefit: yes LNOK: Jessicamaximo Blake, mother Living Arrangements: Pt lives with 2 children in a single story home with 4 steps to enter with a rail. Pt reports being I in ADL/IADLs prior to surgery. Pt denies concerns at home. Pt mother is caring for her children while she is hospitalized. Pt states her mother and a friend are able to assist her post op. Transportation: Pt drives self and denies concerns with transportation. Pt mother will transport her until she can drive again. DME:shower bench, CHC, FWW, cane, rollator HHC/SNF: Denies hx of Pt states no concerns with going home at time of dc. Pt has outpt therapy set up on Saturday at [facility]. Pt states no further concerns/needs. CM to follow. Advised pt to ask CM if any further questions/concerns/needs arise, voices understanding. Pt Goal: Home with outpt therapy Plan: Home with outpt therapy TC to [facility] Retail, cost of eliquis is $3.36. Jeffrey DIGGS CM
--- NOTE | 2025-03-31 10:26 | PHA.DC.MC.R ---
Pharmacy [facility] has performed discharge medication reconciliation and counseling for this patient. 1. ACETAMINOPHEN 1000MG PO Q6 2. APIXABAN 2.5MG PO BID 3. OXYCODONE 5-10MG PO Q6H PRN PAIN The patient's discharge medication list was reviewed for discrepancies and discrepancies were resolved. The patient was counseled on the following discharge medications and changes in medications for homegoing were reviewed. The Reason for Use, instructions for use, and potential side effects were reviewed for all new medications. The patient's questions regarding all of their medications were answered. The patient was able to verbally demonstrate an understanding of their discharge medications. Medications at Discharge Home Medications albuterol sulfate 90 mcg/actuation aerosol inhaler 2 puff inhalation Q6H PRN SOB 01/19/22 progesterone micronized 100 mg capsule 100 mg PO QHS HORMONE REPLACEMENT 03/12/24 scopolamine base 1 mg over 3 days transdermal patch 1 patch transdermal Q3D PRN motion sickness 03/12/24 biotin 10 mg tablet 10 mg PO QDAY SUPPLEMENT 01/18/25 calcium citrate 500 mg PO TID SUPPLEMENT 01/18/25 cyclobenzaprine 10 mg tablet 10 mg PO QHS PRN muscle spasm 01/18/25 ferrous sulfate 325 mg (65 mg iron) tablet 325 mg PO QDAY LOW IRON 01/18/25 levothyroxine 75 mcg tablet 75 mcg PO QHS HYPOTHYROID 01/18/25 liothyronine 5 mcg tablet 5 mcg PO QHS HYPOTHYROID 01/18/25 askmzndi-amwj-ndyl 8 mg-folic 400 mcg-K 50 mcg-lutein 300 mcg tablet (Centrum Silver Women) 1 tab PO QDAY SUPPLEMENT 01/18/25 omeprazole 40 mg capsule,delayed release 40 mg PO DAILY GERD 01/18/25 thiamine HCl (vitamin B1) 50 mg tablet 50 mg PO QDAY SUPPLEMENT 01/18/25 cholecalciferol (vitamin D3) 125 mcg (5,000 unit) tablet (Vitamin D3) 125 mcg PO DAILY SUPPLEMENT 03/16/25 acetaminophen 500 mg tablet 1,000 mg (2 x 500 mg) PO Q6H #90 tabs 03/30/25 apixaban 2.5 mg tablet (Eliquis) 2.5 mg PO BID #42 tabs 03/30/25 oxycodone 5 mg tablet 5 - 10 mg (1 - 2 x 5 mg) PO Q6H PRN pain 7 days #60 tabs 03/30/25
== END 2025-03-31 12:00 | disposition home or self-care (01) ==
PROVIDERS: Anesthesiology; Admitting Provider Orthopaedic Surgery; PCP Family Medicine; Referring Provider Orthopaedic Surgery; Visit Provider Orthopaedic Surgery
PROC: 8E0Y0CZ Robotic Assisted Procedure of Lower Extremity, Open Approach (ICD-10-PCS; CPT 27130; principal; 2025-03-30 07:00)
DX: M16.11 Unilateral primary osteoarthritis, right hip (principal); Z68.41 Body mass index [BMI] 40.0-44.9, adult; E66.813 Obesity, class 3; E11.9 Type 2 diabetes mellitus without complications; I10 Essential (primary) hypertension; Z87.891 Personal history of nicotine dependence; G47.30 Sleep apnea, unspecified; Z79.899 Other long term (current) drug therapy; Z98.84 Bariatric surgery status; R06.02 Shortness of breath; R60.0 Localized edema
CPT/HCPCS: 27130; 01214; S2900; 36415; 73502; 80048; 81025; 82962; 82985; 83036; 83735; 84443; 85025; 85610; 85730; 86850; 86900; 86901; 87077; 87081; 88304; 88305; 88311; 93005; 94640; 94668; 96361; 96365; 96366; 96375; 97162; 97166; 99221; 99252; C1713; C1776; A4216; G0378; G0463; J2405; J3475

== ENCOUNTER 2025-04-04 22:32 | Emergency (ER) | payer MEDICARE, MEDICAID, SELFPAY ==
[2025-04-04 22:33] VITALS: BP 147/74; PULSE 82; RESP 18; TEMP 37.7; O2SAT 96
[2025-04-04 22:45] VITALS: BP 151/66; PULSE 87; RESP 18; TEMP 37.7; O2SAT 96
--- NOTE | 2025-04-04 22:45 | ED.VIS.GI ---
HPI HPI - GI History of Present Illness Chief Complaint: GI Bleed Informant: patient and EMS Narrative Narrative: 39-year-old female presents by EMS to the ER because of an episode of rectal bleeding. She had a right total hip arthroplasty because of bad arthritis 6 days ago. She has been on prophylactic Eliquis since then, she states she is post to take that until the pills are finished. She noticed a couple of areas where veins in her right distal thigh and right proximal thigh popped out and are a little sore and warm today, whereas they were not popping out before. No bleeding from them. She has not yet had a bowel movement since her surgery, she felt like she was going to after taking some stool softeners earlier, so she sat on the toilet, and upon pushing she passed what she thought was liquid diarrhea but in actuality was a lot of blood. She states when she did some wiping, she discovered it seem like it was coming from her rectum rather than her vagina which is what she was expecting because her cycles have been fairly regular, but she was 2 or 3 days late, and she was expecting to start bleeding anytime now. She denies having abdominal pain, lightheadedness, nausea or vomiting. Her right hip is sore but it has been doing well and she has been getting around well on it using her walker and cane. [facility] Medical History Low iron Fatty liver CPAP (continuous positive airway pressure) dependence Sleep apnea Former smoker History of Holter monitoring History of echocardiogram Sleep apnea treated with nocturnal bilevel positive airway pressure (BPAP) Diabetes Wears glasses Wears dentures Anxiety Alcohol use Marijuana use History of steroid therapy Ambulates with cane Arthritis Easy bruising Restless legs Back pain Migraine headache Vertigo Non-smoker Hoarseness Shortness of breath on exertion Leg cramps History of pain when walking History of edema Hypertension Home Medications ?Medication ?Instructions ?Recorded ?Last Taken ?Type albuterol sulfate 90 mcg/actuation 2 puff inhalation Q6H PRN SOB 01/19/22 03/20/24 History aerosol inhaler progesterone micronized 100 mg 100 mg PO QHS HORMONE REPLACEMENT 03/12/24 02/28/25 History capsule scopolamine base 1 mg over 3 days 1 patch transdermal Q3D PRN motion 03/12/24 03/26/25 History transdermal patch sickness biotin 10 mg tablet 10 mg PO QDAY SUPPLEMENT 01/18/25 03/29/25 History calcium citrate 500 mg PO TID SUPPLEMENT 01/18/25 03/29/25 History cyclobenzaprine 10 mg tablet 10 mg PO QHS PRN muscle spasm 01/18/25 Unknown History ferrous sulfate 325 mg (65 mg 325 mg PO QDAY LOW IRON 01/18/25 03/26/25 History iron) tablet levothyroxine 75 mcg tablet 75 mcg PO QHS HYPOTHYROID 01/18/25 03/29/25 History liothyronine 5 mcg tablet 5 mcg PO QHS HYPOTHYROID 01/18/25 03/29/25 History bzvuekxa-xvgg-rpaf 8 mg-folic 400 1 tab PO QDAY SUPPLEMENT 01/18/25 03/29/25 History mcg-K 50 mcg-lutein 300 mcg tablet (Centrum Silver Women) omeprazole 40 mg capsule,delayed 40 mg PO DAILY GERD 01/18/25 03/30/25 03:45 History release thiamine HCl (vitamin B1) 50 mg 50 mg PO QDAY SUPPLEMENT 01/18/25 03/29/25 History tablet cholecalciferol (vitamin D3) 125 125 mcg PO DAILY SUPPLEMENT 03/16/25 03/29/25 History mcg (5,000 unit) tablet (Vitamin D3) acetaminophen 500 mg tablet 1,000 mg (2 x 500 mg) PO Q6H #90 03/30/25 Unknown Rx tabs oxycodone 5 mg tablet 5 - 10 mg (1 - 2 x 5 mg) PO Q6H 03/30/25 Unknown Rx PRN pain 7 days #60 tabs hydrocortisone 1 %-pramoxine 1 % 1 applic NV QHS 1 week #10 grams 04/05/25 Unknown Rx rectal foam (Proctofoam HC) Allergy/AdvReac Type Severity Reaction Status Date / Time adhesive tape Allergy Unknown Unknown Verified 03/30/25 06:10 nickel Allergy Unknown Unknown Verified 03/30/25 06:10 Surgical History (Updated 04/04/25 @ 22:47 by Rosina Paul) Status post right hip replacement History of gastric bypass (~11/2024) History of Hx of vein stripping Hx of arthroscopic knee surgery History of lumbar surgery Social History Smoking Status: Former smoker Electronic Cigarette Use: not used second hand exposure: No alcohol intake: never substance use type: does not use ROS ROS ED Constitutional Constitutional ED: Denies chills or fever(s) Eyes Eyes: Denies change in vision or diplopia ENT ENT ED: Denies rhinorrhea or sore throat Cardiovascular Cardiovascular: Denies chest pain or palpitations Respiratory/Chest Respiratory/Chest: Denies cough or dyspnea Gastrointestinal Gastrointestinal: Reports as per HPI and rectal bleeding; Denies abdominal pain, diarrhea, melena, nausea or vomiting Genitourinary Genitourinary ED: Denies dysuria or hematuria Musculoskeletal Musculoskeletal: Reports as per HPI and extremity pain; Denies back pain or neck pain Integumentary Denies abscess or rash Neurologic Neurologic: Denies headache(s), paresthesias or weakness Psychiatric Psychiatric: Denies suicidal thoughts EXAM Physical Exam Const Vital Signs: 04/04/25 22:33 04/04/25 22:45 04/05/25 00:17 Temperature 100 F H 100 F H 99.7 F H Temperature Source Oral Oral Oral Pulse Rate 82 87 85 Pulse Rate [Lying] Pulse Rate [Sitting (for 1 minute prior to obtaining)] Pulse Rate [Standing (for 1 minute prior to obtaining)] Respiratory Rate 18 18 20 H Blood Pressure 147/74 H 151/66 H 135/72 H Blood Pressure [Lying] Blood Pressure [Sitting (for 1 minute prior to obtaining)] Blood Pressure [Standing (for 1 minute prior to obtaining)] Blood Pressure Mean 98 94 93 Blood Pressure Mean [Lying] Blood Pressure Mean [Sitting (for 1 minute prior to obtaining)] Blood Pressure Mean [Standing (for 1 minute prior to obtaining)] Pulse Ox 96 96 97 Oxygen Delivery Method Room Air Room Air Room Air 04/05/25 00:18 04/05/25 00:19 Temperature 99.7 F H Temperature Source Oral Pulse Rate 85 Pulse Rate [Lying] 73 Pulse Rate [Sitting (for 1 minute prior to obtaining)] 85 Pulse Rate [Standing (for 1 minute prior to obtaining)] 90 Respiratory Rate 18 Blood Pressure 135/72 H Blood Pressure [Lying] 143/82 H Blood Pressure [Sitting (for 1 minute prior to obtaining)] 135/72 H Blood Pressure [Standing (for 1 minute prior to obtaining)] 153/82 H Blood Pressure Mean 93 Blood Pressure Mean [Lying] 102 Blood Pressure Mean [Sitting (for 1 minute prior to obtaining)] 93 Blood Pressure Mean [Standing (for 1 minute prior to obtaining)] 105 Pulse Ox 97 Oxygen Delivery Method Room Air Positive well nourished and well developed General Appearance ED: well developed and NAD HEENT Reports moist mucous membranes normocephalic and atraumatic Eyes PERRL and EOMs intact bilaterally Neck full ROM and supple Resp normal respiratory effort and clear to auscultation bilaterally Cardio regular rate, regular rhythm and no murmurs Rate: Negative for tachycardic GI non-tender and non-distended GI Narrative: Rectal: Perianal exam is benign there are no external or thrombosed internal hemorrhoids, there is no tenderness or abscess, and on CLARENCE, there is also no tenderness and there is no blood present. There is a light brown stool present. This was sent for Hemoccult Auscultation: normoactive bowel sounds Palpation: soft Back/Spine no CVA tenderness General Back: other FROM Extremity normal to inspection Extremity Narrative: 2 surgical right hip incisions clean, dry, intact with rose no dehiscence or discharge or signs of infection or tenderness. In the medial right thigh, proximally there is a varicose vein that is mildly tender, without any erythema, and is not firm, with no palpable cord. There is a similar appearing and feeling varicosity in the distal medial thigh also without a palpable cord or erythema. There is no calf tenderness or edema distally. General Extremety ED: Negative for edema or pulses abnormal General Extremity: Negative for edema or pulses abnormal Neuro oriented x3, CN's II-XII intact bilaterally and no sensory deficits noted Sensorium / Orientation: awake and alert Motor Exam: strength 5/5 throughout Psych thought process normal Skin no rashes or lesions noted and no wounds Skin Narrative: See above, right hip surgical incisions look clean and without infection or dehiscence. MDM MDM MDM Narrative Medical decision making narrative: Rectal exam very benign would like brown stool no blood or melena, and so in considering possibility of vaginal source of her bleeding, send the Hemoccult of this and it was positive suggesting that it was rectal. She said it did not feel vaginal. Her hemoglobin returns at 8.8. Her preoperative hemoglobin was 11.7. It is unclear if this drop is directly result of the symptoms that she had today, or if this is simply related to her surgery and intraoperative blood loss, which is documented as 200, assuming this is milliliters, which is not an insignificant amount. Her BUN is not elevated to suggest an acute upper GI bleed. When I reevaluated the patient to talk to her about this, she states that she is in pain, referring to her postoperative right hip pain and she did not bring her oxycodone with her, to which I replied I be happy to order her a dose, and she states that she went from lying to sitting up and felt dizzy. When asked qualify this, she states it feels like vertigo that made her nauseated, she did not feel faint or lightheaded. She states she has had vertigo in the past and she states this felt similar. She is no longer feeling dizzy while sitting still, but we gave her some Zofran for the persistent nausea. This helped. Her orthostatics are negative/normal. Her blood pressure actually went up a little from lying to standing. Given this and the fact that there is no gross blood or pooling present on rectal, I think it is very unlikely that she just lost 3g of blood prior to arrival here. I think the most likely cause of the bleeding would be internal hemorrhoids since she has been using stool softeners trying have a bowel movement and straining, taking a lot of oxycodone for her hip pain. I am going to prescribe her Proctofoam HC, recommended she discontinue the Eliquis, and follow-up with her doctor. With regard to the varicose veins, I recommend warm compresses for now. Also with regards to her vital signs, she initially had a temperature of 100.0 Fahrenheit, on recheck it is 99.7 without treating it specifically. She does not have any signs or symptoms of an infection right now. is negative. History & Record Review Additional record(s) reviewed:: Prior outpatient record (Operative report EBL) Lab Data Attestation: I reviewed the patient's lab results. Labs: Laboratory Results - last 24 hr 04/04/25 04/04/25 22:56 23:13 WBC 5.0 RBC 3.45 L Hgb 8.8 L Hct 27.8 L MCV 80.6 L MCH 25.5 L MCHC 31.7 L RDW Std Deviation 46.6 H RDW Coeff of [place] 15.9 H Plt Count 214 MPV 9.1 Immature Gran % (Auto) 0.200 Neut % (Auto) 58.2 Lymph % (Auto) 29.2 [place] % (Auto) 7.4 Eos % (Auto) 4.6 Baso % (Auto) 0.4 Absolute Neuts (auto) 2.9 Absolute Lymphs (auto) 1.45 Nucleated RBC % 0 Sodium 137 Potassium 3.5 Chloride 101 Carbon Dioxide 25.3 Anion Gap 10 BUN 7 Creatinine 0.73 Est GFR (MDRD) Non-Af 106 BUN/Creatinine Ratio 10.2 Glucose 100 H Calcium 8.7 Serum , Qual NEGATIVE Discharge Plan Triage Chief Complaint: GI Bleed ED Provider: Sunday Mon Dx/Rx/DC Orders Clinical Impression: Rectal bleeding, Anticoagulated, Postoperative anemia, Acute postoperative pain of right hip, Varicose veins of right lower extremity Instructions: ED Lower GI Bleeding (Stable), ED Varicose Veins Prescriptions: New Proctofoam HC 1-1 % foam 1 applic NV QHS 7 Days Qty: 10 0RF Continued albuterol sulfate 90 mcg/actuation HFA aerosol inhaler 2 puff inhalation Q6H PRN (Reason: SOB) levothyroxine 75 mcg tablet 75 mcg PO QHS cyclobenzaprine 10 mg tablet 10 mg PO QHS PRN (Reason: muscle spasm) liothyronine 5 mcg tablet 5 mcg PO QHS omeprazole 40 mg capsule,delayed release(DR/EC) 40 mg PO DAILY Centrum Silver Women 8 mg iron-400 mcg-50 mcg tablet 1 tab PO QDAY thiamine HCl (vitamin B1) 50 mg tablet 50 mg PO QDAY calcium citrate 250 mg calcium tablet 500 mg PO TID Rx Instructions: 2 tabs 3x day ferrous sulfate 325 mg (65 mg iron) tablet 325 mg PO QDAY biotin 10 mg tablet 10 mg PO QDAY scopolamine base 1 mg over 3 days patch 3 day 1 patch transdermal Q3D PRN (Reason: motion sickness) progesterone micronized 100 mg capsule 100 mg PO QHS cholecalciferol (vitamin D3) [Vitamin D3] 125 mcg (5,000 unit) tablet 125 mcg PO DAILY acetaminophen 500 mg tablet 1,000 mg PO Q6H Qty: 90 0RF oxycodone 5 mg tablet 5 - 10 mg PO Q6H PRN (Reason: pain) 7 Days Qty: 60 0RF Discontinued Eliquis 2.5 mg tablet 2.5 mg PO BID Qty: 42 0RF Rx Instructions: Begin morning after surgery. Primary Care Provider: Nicole Aguila Referrals: Nicole Aguila, [Primary Care Provider] - As soon as possible (and/or Dr. Michelle) Print Language: Latvian Disposition Disposition: Home, Self Care
[2025-04-04 23:03] LABS: Absolute Lymphocyte Count 1.45 X10^3/uL (0.83-4.51); Absolute Neutrophil Count 2.9 X10^3/uL (2.0-7.7); Basophil# 0.02 X10^3/uL; Basophil% 0.4 % (0-1); Eosinophil# 0.23 X10^3/uL; Eosinophils% 4.6 % (0-5); Hematocrit 27.8 % (37-47); Hemoglobin 8.8 g/dL (12.0-15.0); Lymphocyte # 1.45 X10^3/ul (0.83-4.51); Lymphocyte % 29.2 % (19-41); Mean Corp Hgb Conc 31.7 g/dL (32-36); Mean Corpuscular Hgb 25.5 pg (27.0-32.0); Mean Corpuscular Volume 80.6 fL (81-99); Mean Platelet Vol. 9.1 fl (6.2-12.0); Monocyte# 0.37 X10^3/uL; Monocyte% 7.4 % (0-10); NRBC Flagged by Analyzer 0 % (0-5); Neutrophil # 2.89 X10^3/uL (2.7-7.7); Neutrophil % 58.2 % (47-70); Platelet Count 214 K/mm3 (150-450); RBC Distribution Width CV 15.9 % (11.6-14.6); RBC Distribution Width SD 46.6 fl (35.1-43.9); Red Blood Count 3.45 M/mm3 (4.2-5.4)
[2025-04-04 23:23] LABS: Anion Gap 10 (5-15); BUN 7 mg/dL (4-19); BUN/Creat Ratio 10.2 RATIO (10-20); Calcium,Total 8.7 mg/dL (7.6-11.0); Carbon Dioxide 25.3 mmol/L (21.0-32.0); Chloride 101 mmol/L (98-108); Creatinine, Serum 0.73 mg/dL (0.70-1.20); EST Glomerular Filtration Rate 106 (>60); Glucose 100 mg/dL (70-99); Potassium 3.5 mmol/L (3.3-5.1); Sodium Level 137 mmol/L (133-145)
[2025-04-04] MEDS: Ondansetron 4 MG/2 ML Vial IV (23:40)
[2025-04-05] MEDS: oxyCODONE 5 MG Tablet PO (00:03)
[2025-04-05 00:17] VITALS: BP 135/72; PULSE 85; RESP 20; TEMP 37.6; O2SAT 97
[2025-04-05 00:18] VITALS: BP 135/72; PULSE 85; RESP 18; TEMP 37.6; O2SAT 97
[2025-04-05 00:19] VITALS: BP 135/72; BP 143/82; BP 153/82; PULSE 73; PULSE 85; PULSE 90
[2025-04-05 00:48] LABS: Internal QC Validated? YES +Cl - CLEAR BKGD; Pregnancy, Serum, hCG Quali. NEGATIVE Negative
[2025-04-05 00:54] VITALS: BP 119/58; PULSE 77; RESP 18; TEMP 37.5; O2SAT 97
== END 2025-04-05 02:09 | disposition home or self-care (01) ==
PROVIDERS: Emergency Provider Emergency Medicine; PCP Family Medicine; Visit Provider Emergency Medicine
DX: K62.5 Hemorrhage of anus and rectum (principal); E11.9 Type 2 diabetes mellitus without complications; Z96.641 Presence of right artificial hip joint; Z87.891 Personal history of nicotine dependence; R11.0 Nausea; Z79.01 Long term (current) use of anticoagulants; I10 Essential (primary) hypertension; Z98.890 Other specified postprocedural states; D64.89 Other specified anemias; I83.91 Asymptomatic varicose veins of right lower extremity
CPT/HCPCS: 80048; 82274; 84703; 85025; 96374; 99285; A4216; J2405

== ENCOUNTER 2025-04-20 14:00 | Outpatient (RCR) | payer MEDICARE, MEDICAID, SELFPAY ==
--- NOTE | 2025-04-05 08:45 | HP.PTEVAL ---
Patient's Visit Information Visit Information Visit Information: MIK AGGARWAL is a 39 year old F referred to Physical Therapy by Dr. Anthony Michelle DO with a diagnosis of R TANGELA, DOS: 03/30/25. Date of Evaluation: 04/02/25 Physical Therapist: Mo Fuller DPT Visit Plan Frequency: 2-3x /Week Duration: 6 Weeks Plan: 1) R hip ROM, core and hip strengthening 2) nustep/bike 3) ice as needed for pain control 4) progress functional mobility, including gait and stairs. Subjective Subjective: Pt. is here today for her initial evaluation with diagnosis of R TANGELA. DOS: 03/30/25 posterior/lateral approach. Pt. arrives with use of FWW. Pt. reports overall doing well. Pt. reports no N/T currently. No calf pain, no fever, no chest pain. Pt. just finished school in [employer] and would like to find a job in this field. Pt. has not been sleeping in her bed due to her bed being so low. Pt. has not removed bandage yet. Pt. is overall pleased with her progress thus far. Pt. reports having to have her other hip replaced as well. Pt. is hopeful to reduce symptoms and get back to all recreational activities without limitations. Pain R hip: Pain Intensity (Out of 10): 3 Pain Intensity Range: 2 and 6 Objective Objective: POSTURE: Pt. has slight flexed posture, but is able to correct with VCing. PALPATION: Pt. has normal healing incision. Bandage removed. No signs of infection. Negative homans sign. NEURO: normal throughout. ROM: R hip PROM: flexion 70deg, abd 40deg, ext 0deg. Very tight HS noted. MMT: distal LE 5/5 throughout. R hip: flexion 3-/5, abd 3/5, ext 3/5. GAIT: pt. ambulates well with FWW. Pt. has decreased step length bilaterally and uses FWW to off load RLE during stance phase. STAIRS: Step to pattern with 2 HR to complete 30sec sit to stand: 8 without use of uEs TUsec Goals Goal 1:: LTG: pt to be I with HEP. Goal Time Frame: 2-4 Weeks Goal 2:: STG: Pt. to have increased R hip ROM symmetrical to L side without increase in symptoms. Goal Time Frame: 2-4 Weeks Goal 3:: LTG: pt. to have 5/5 strength throughout RLE. Goal Time Frame: 4-6 Weeks Goal 4:: LTG: Pt. to complete TUG with time less than 10sec without AD. Goal Time Frame: 4-6 Weeks Goal 5:: LTG: pt. to have normal gait pattern without use of AD. Goal Time Frame: 4-6 Weeks Goal 6:: LTG: Pt. to negotiate 1 flight of steps with1 HR with reciprocal pattern. Goal Time Frame: 4-6 Weeks Rehabilitation Potential Physical Therapy Diagnosis: Pt. has signs and symptoms consistent with R TANGELA, DOS: 03/30/25. Pt. has subsequent hypomobility, weakness, difficulty with gait, and increased pain. Pt. would benefit from PT to address the above limitations progressing back to all recreational activities without limitations. Rehabilitation Potential: Excellent Anticipated Interventions Patient/Client Instruction: Educate patient on: Condition, Plan of Care, Risk Factors and Benefits of Fitness Program For the Purpose of:: To improve decision making, To facilitate caregiver knowledge, To improve self management, To prevent re-injury and To improve ability to perform tasks related to life management Therapeutic Exercise to Include: Strength training, Power training, Endurance training, Balance training, Coordination, Body mechanics, Postural training, Flexibilty training, Gait and locomotor training and Passive ROM For the Purpose of:: To decrease pain, To decrease swelling/inflammation, To increase ROM, To improve nutrient delivery to tissue, To increase oxygenation perfusion, To improve muscle performance and motor function, To improve ability of physical actions for home/community/work/leisure, To improve gait and locomotor functions, To improve health of tissue, To decrease soft tissue restriction and To increase flexibility/ROM Cryotherapy (ice pack, ice massage): Yes Thermo therapy (hot pack): Yes For the Purpose of:: To decrease pain, To decrease swelling/inflammation and To increase ROM Text: Thank you for the opportunity to evaluate your patient. For Medicare and Medicare HMO plans, please review the plan of care and approve it. It will need to be FAXED BACK to us at [phone] for Medicare purposes. For Medicare only, by signing this I certify the plan of care. Please let me know if there are questions or concerns regarding this plan of care. Physician Signature: Date:
== END 2025-04-20 19:00 | disposition home or self-care (01) ==
LOC: PT 14:00
PROVIDERS: PCP Family Medicine; Referring Provider Orthopaedic Surgery; Visit Provider Orthopaedic Surgery
DX: M16.11 Unilateral primary osteoarthritis, right hip (principal); Z96.641 Presence of right artificial hip joint
CPT/HCPCS: 97110; 97140; 97161